=== PATIENT | male | born 1975 | race Caucasian/White ===

== ENCOUNTER 2021-09-03 10:14 | Inpatient (IN) | payer OTHER ==
[2021-09-03] MEDS ORDERED: SODIUM CHLORIDE 0.9% 1,000 ML IV STA (10:34)
[2021-09-03] MEDS ORDERED: SODIUM CHLORIDE 0.9% 500 ML 500 ML IV STA (10:34)
[2021-09-03] MEDS ORDERED: KETOROLAC 15 MG/ML 1 ML VIAL IVP STA (10:36)
--- NOTE | 2021-09-03 10:39 | ED ---
Nausea/Vomiting/Diarrhea HPI - General Chief complaint: Nausea/Vomiting/Diarrhea Stated complaint: Vomiting and Tachycardia Time Seen by Provider: 09/03/21 10:20 Source: patient, EMS, RN notes reviewed Limitations: physical limitation - History of Present Illness Initial comments: Patient is 46-year-old male presenting to the ED for 1-day-old nausea and vomiting. Patient states that last night was starting to feel nauseous and vomiting not being able to keep any fluids down or eat anything. Patient denies any cough congestion or feeling ill prior to yesterday. Patient states he was tested for culture yesterday and result came back negative per [facility]. Patient denies any changes in bowel movements or pain with urination. Patient denies any abdominal discomfort or pressure. Patient states after getting a liter of fluids and Zofran from EMS patient shouldn't feels feeling much better. - Related Data Home Medications Medication Instructions Recorded Confirmed Cyclobenzaprine [Flexeril] 10 mg PO TID@0500,1300,2100 11/22/14 09/03/21 Amitriptyline HCl [Elavil] 10 mg PO HS 09/03/21 09/03/21 Bisacodyl 5 mg PO HS 09/03/21 09/03/21 Mag Hydrox/Al Hydrox/Simeth 15 ml PO Q6H PRN 09/03/21 09/03/21 [Maalox] Metoprolol Tartrate [Lopressor] 25 mg PO BID 09/03/21 09/03/21 Multivitamins, Thera [Multivitamin 1 tab PO HS 09/03/21 09/03/21 (formulary)] Sennosides [Senna] 8.6 mg PO BID 09/03/21 09/03/21 Triamcinolone 0.1% Cream [Kenalog 1 applic TOPICAL Q12H PRN 09/03/21 09/03/21 0.1% Cream] Vitamin D(Unknown Dose) 1 cap PO Q90D 09/03/21 09/03/21 rOPINIRole HCL [Requip] 1 mg PO HS@199909/03/21 09/03/21 traMADol HCL 50 mg PO BID 09/03/21 09/03/21 Allergies Allergy/AdvReac Type Severity Reaction Status Date / Time No Known Allergies Allergy Verified 09/03/21 11:17 Review of Systems ROS Statement: Those systems with pertinent positive or pertinent negative responses have been documented in the HPI. ROS Other: All systems not noted in ROS Statement are negative. Past Medical History Past Medical History: GERD/Reflux Additional Past Medical History / Comment(s): poor hygiene, connective tissue disorder, vitamin D deficiency, acute pancreatitis, cholelithiasis, pancreatitis, Rickets History of Any Multi-Drug Resistant Organisms: None Reported Past Surgical History: No Surgical Hx Reported Past Anesthesia/Blood Transfusion Reactions: No Reported Reaction Past Psychological History: No Psychological Hx Reported Smoking Status: Never smoker Past Alcohol Use History: None Reported Past Drug Use History: None Reported - Past Family History Father Additional Family Medical History / Comment(s): bipolar Mother Family Medical History: COPD, Deep Vein Thrombosis (DVT), Hypertension General Exam Limitations: physical limitation General appearance: alert, in no apparent distress Respiratory exam: Present: normal lung sounds bilaterally. Absent: respiratory distress, wheezes, rales, rhonchi, stridor Cardiovascular Exam: Present: normal rhythm, tachycardia, normal heart sounds. Absent: systolic murmur, diastolic murmur, rubs, gallop, clicks GI/Abdominal exam: Present: soft, normal bowel sounds. Absent: distended, tenderness, guarding, rebound, rigid Neurological exam: Present: alert, oriented X3 Skin exam: Present: warm, dry Course Vital Signs 09/03/21 10:18 Temperature 99 F Pulse Rate 135 H Respiratory 16 Rate Blood Pressure 117/88 O2 Sat by Pulse 96 Oximetry Medical Decision Making - Medical Decision Making 46-year-old male presented from it for Esophageal, and Nausea Vomiting Tachycardia. Patient's Found to Have a Heart Rate in the 130s. This for Station Patient Was Feeling Improved after Zofran and Fluids Given by EMS Additi onal Fluids Were Ordered along with Labs, Urinalysis. Patient Found to Have Urinary Tract Infection. Patient Does Have Significant Leukocytosis, Mild Hypertension. Patient Will Be Admitted for Probable Urosepsis. Blood Cultures, Lactic Acid and Antiemetics Were Ordered. - Lab Data Result diagrams: 09/03/21 10:44 09/03/21 10:44 Lab Results 09/03/21 09/03/21 09/03/21 Range/Units 10:44 10:44 10:44 WBC 20.3 H (3.8-10.6) k/uL RBC 5.59 (4.30-5.90) m/uL Hgb 15.5 (13.0-17.5) gm/dL Hct 46.6 (39.0-53.0) % MCV 83.3 (80.0-100.0) fL MCH 27.7 (25.0-35.0) pg MCHC 33.3 (31.0-37.0) g/dL RDW 14.3 (11.5-15.5) % Plt Count 319 (150-450) k/uL MPV 7.2 Neutrophils % 84 % Lymphocytes % 7 % Monocytes % 6 % Eosinophils % 0 % Basophils % 0 % Neutrophils # 17.1 H (1.3-7.7) k/uL Lymphocytes # 1.5 (1.0-4.8) k/uL Monocytes # 1.2 H (0-1.0) k/uL Eosinophils # 0.1 (0-0.7) k/uL Basophils # 0.0 (0-0.2) k/uL Sodium 140 (137-145) mmol/L Potassium 3.4 L (3.5-5.1) mmol/L Chloride 102 (98-107) mmol/L Carbon Dioxide 23 (22-30) mmol/L Anion Gap 15 mmol/L BUN 23 H (9-20) mg/dL Creatinine 0.64 L (0.66-1.25) mg/dL Est GFR (CKD-EPI)AfAm >90 (>60 ml/min/1.73 sqM) Est GFR (CKD-EPI)NonAf >90 (>60 ml/min/1.73 sqM) Glucose 146 H (74-99) mg/dL Calcium 8.8 (8.4-10.2) mg/dL Magnesium 2.0 (1.6-2.3) mg/dL Total Bilirubin 1.2 (0.2-1.3) mg/dL AST 29 (17-59) U/L ALT 19 (4-49) U/L Alkaline Phosphatase 76 (38-126) U/L Troponin I (0.000-0.034) ng/mL Total Protein 7.0 (6.3-8.2) g/dL Albumin 3.4 L (3.5-5.0) g/dL Lipase 26 (23-300) U/L Urine Color Yellow Urine Appearance Cloudy (Clear) Urine pH 5.5 (5.0-8.0) Ur Specific Beaver 1.029 (1.001-1.035) Urine Protein 2+ H (Negative) Urine Glucose (UA) Negative (Negative) Urine Ketones 4+ H (Negative) Urine Blood Trace H (Negative) Urine Nitrite Negative (Negative) Urine Bilirubin 1+ H (Negative) Urine Urobilinogen 4.0 (<2.0) mg/dL Ur Leukocyte Esterase Large H (Negative) Urine RBC 9 H (0-5) /hpf Urine WBC >182 H (0-5) /hpf Ur Squamous Epith Cells 4 (0-4) /hpf Urine Bacteria Occasional H (None) /hpf Hyaline Casts 20 H (0-2) /lpf Urine Mucus Moderate H (None) /hpf 09/03/21 Range/Units 10:44 WBC (3.8-10.6) k/uL RBC (4.30-5.90) m/uL Hgb (13.0-17.5) gm/dL Hct (39.0-53.0) % MCV (80.0-100.0) fL MCH (25.0-35.0) pg MCHC (31.0-37.0) g/dL RDW (11.5-15.5) % Plt Count (150-450) k/uL MPV Neutrophils % % Lymphocytes % % Monocytes % % Eosinophils % % Basophils % % Neutrophils # (1.3-7.7) k/uL Lymphocytes # (1.0-4.8) k/uL Monocytes # (0-1.0) k/uL Eosinophils # (0-0.7) k/uL Basophils # (0-0.2) k/uL Sodium (137-145) mmol/L Potassium (3.5-5.1) mmol/L Chloride (98-107) mmol/L Carbon Dioxide (22-30) mmol/L Anion Gap mmol/L BUN (9-20) mg/dL Creatinine (0.66-1.25) mg/dL Est GFR (CKD-EPI)AfAm (>60 ml/min/1.73 sqM) Est GFR (CKD-EPI)NonAf (>60 ml/min/1.73 sqM) Glucose (74-99) mg/dL Calcium (8.4-10.2) mg/dL Magnesium (1.6-2.3) mg/dL Total Bilirubin (0.2-1.3) mg/dL AST (17-59) U/L ALT (4-49) U/L Alkaline Phosphatase (38-126) U/L Troponin I 0.024 (0.000-0.034) ng/mL Total Protein (6.3-8.2) g/dL Albumin (3.5-5.0) g/dL Lipase (23-300) U/L Urine Color Urine Appearance (Clear) Urine pH (5.0-8.0) Ur Specific Beaver (1.001-1.035) Urine Protein (Negative) Urine Glucose (UA) (Negative) Urine Ketones (Negative) Urine Blood (Negative) Urine Nitrite (Negative) Urine Bilirubin (Negative) Urine Urobilinogen (<2.0) mg/dL Ur Leukocyte Esterase (Negative) Urine RBC (0-5) /hpf Urine WBC (0-5) /hpf Ur Squamous Epith Cells (0-4) /hpf Urine Bacteria (None) /hpf Hyaline Casts (0-2) /lpf Urine Mucus (None) /hpf Critical Care Time Critical Care Time: Yes Total Critical Care Time: 35 Disposition Clinical Impression: Tachycardia, Sepsis, Urinary tract infection, Dehydration Disposition: ADMITTED IP TO THIS [facility] Condition: Fair Referrals: Radha Peacock MD [Primary Care Provider] - 1-2 days
[2021-09-03 11:10] LABS: Basophils % (A) 0 %; Eosinophils # (A) 0.1 k/uL (0-0.7); Eosinophils % (A) 0 %; HCT 46.6 % (39.0-53.0); HGB 15.5 gm/dL (13.0-17.5); Lymphocytes # (A) 1.5 k/uL (1.0-4.8); Lymphocytes % (A) 7 %; MCH 27.7 pg (25.0-35.0); MCHC 33.3 g/dL (31.0-37.0); MCV 83.3 fL (80.0-100.0); Mean Platelet Volume 7.2; Monocytes # (A) 1.2 k/uL (0-1.0); Monocytes % (A) 6 %; Neutrophils # (A) 17.1 k/uL (1.3-7.7); Neutrophils % (A) 84 %; Platelet Count 319 k/uL (150-450); RBC 5.59 m/uL (4.30-5.90); RDW 14.3 % (11.5-15.5); WBC 20.3 k/uL (3.8-10.6)
[2021-09-03 11:21] LABS: ALT 19 U/L (4-49); AST 29 U/L (17-59); African American GFR (CKD) >90 (>60 ml/min/1.73 sqM); Albumin 3.4 g/dL (3.5-5.0); Alkaline Phosphatase 76 U/L (38-126); Anion Gap 15 mmol/L; Blood Urea Nitrogen 23 mg/dL (9-20); Calcium 8.8 mg/dL (8.4-10.2); Carbon Dioxide 23 mmol/L (22-30); Chloride 102 mmol/L (98-107); Glucose 146 mg/dL (74-99); Lipase 26 U/L (23-300); Non-African American GFR(CKD) >90 (>60 ml/min/1.73 sqM); Potassium 3.4 mmol/L (3.5-5.1); Sodium 140 mmol/L (137-145); Total Bilirubin 1.2 mg/dL (0.2-1.3)
[2021-09-03 12:01] LABS: Appearance,Urine Cloudy (Clear); Bacteria,Urine Occasional /hpf; Bilirubin,Urine 1+ (Negative); Blood,Urine Trace (Negative); Color,Urine Yellow; Glucose,Urine (UA) Negative (Negative); Hyaline Casts,Urine 20 /lpf (0-2); Ketones,Urine 4+ (Negative); Leukocyte Esterase,Urine Large (Negative); Mucus,Urine Moderate /hpf; Nitrite,Urine Negative (Negative); PH, Urine 5.5 (5.0-8.0); Protein,Urine 2+ (Negative); RBC,Urine 9 /hpf (0-5); Specific Gravity,Urine 1.029 (1.001-1.035); Squamous Epithelial Cell,Urine 4 /hpf (0-4); WBC,Urine >182 /hpf (0-5)
[2021-09-03] MEDS ORDERED: ACETAMINOPHEN TAB 500 MG TAB PO STA (12:24)
[2021-09-03] MEDS ORDERED: IBUPROFEN 400 MG TAB PO PRN (12:27)
[2021-09-03] MEDS ORDERED: ACETAMINOPHEN TAB 325 MG TAB PO PRN (12:27)
[2021-09-03] MEDS ORDERED: NALOXONE 0.4 MG/ML 1 ML VIAL IV PRN (12:27)
[2021-09-03] MEDS ORDERED: SODIUM CHLORIDE 0.9% 1,000 ML IV ONE (12:30)
[2021-09-03] MEDS: SODIUM CHLORIDE 0.9% 1,000 ML IV SCH ×2 (13:37→20:43)
--- NOTE | 2021-09-03 14:50 | XR ---
EXAMINATION TYPE: XR chest 1V DATE OF EXAM: 09/03/2021 COMPARISON: Chest x-ray 11/22/2014 HISTORY: Fever TECHNIQUE: Single frontal view of the chest is obtained. FINDINGS: Lung volumes are low and the patient is rotated. Right hemidiaphragm remains elevated. Sub segmental basilar atelectatic changes are suspected. Cardiac mediastinal silhouette likely stable acc ounting for differences in technique. There are overlying leads. No evident pneumothorax or pleural e ffusion. Arthropathy is noted in the shoulders. IMPRESSION: Expiratory rotated exam. Possible basilar atelectasis, correlate to exclude pneumonia. F ollow-up PA and lateral chest x-ray may be of benefit.
[2021-09-03] MEDS ORDERED: MAG HYDROX/AL HYDROX/SIMETH 30 ML CUP PO PRN (16:56)
[2021-09-03] MEDS: MULTIVITAMINS, THERA 1 EACH TAB PO SCH (20:45)
[2021-09-03] MEDS: SENNOSIDES 8.6 MG TAB PO SCH (20:45)
[2021-09-03] MEDS: traMADol 50 MG TAB PO SCH (20:45)
[2021-09-03] MEDS: bisacodyL 5 MG TABLET.DR PO SCH (20:45)
[2021-09-03] MEDS: CYCLOBENZAPRINE 10 MG TAB PO SCH (20:45)
[2021-09-03] MEDS: AMITRIPTYLINE HCL 10 MG TAB PO SCH (20:45)
[2021-09-03] MEDS: METOPROLOL TARTRATE 25 MG TAB PO SCH (20:46)
[2021-09-04 04:25] LABS: Basophils % (A) 0 %; Eosinophils # (A) 0.1 k/uL (0-0.7); Eosinophils % (A) 2 %; HCT 45.3 % (39.0-53.0); HGB 14.3 gm/dL (13.0-17.5); Hypochromasia Slight; Lymphocytes # (A) 1.6 k/uL (1.0-4.8); Lymphocytes % (A) 18 %; MCH 28.1 pg (25.0-35.0); MCHC 31.6 g/dL (31.0-37.0); Monocytes # (A) 0.6 k/uL (0-1.0); Monocytes % (A) 7 %; Neutrophils # (A) 6.4 k/uL (1.3-7.7); Neutrophils % (A) 71 %; Platelet Count 189 k/uL (150-450); RBC 5.08 m/uL (4.30-5.90)
[2021-09-04 04:42] LABS: MCV 89.2 fL (80.0-100.0)
[2021-09-04] MEDS: CYCLOBENZAPRINE 10 MG TAB PO SCH ×3 (05:23→21:51)
[2021-09-04] MEDS: SODIUM CHLORIDE 0.9% 1,000 ML IV SCH ×2 (05:25→12:33)
[2021-09-04 07:22] LABS: ALT 16 U/L (4-49); AST 39 U/L (17-59); African American GFR (CKD) >90 (>60 ml/min/1.73 sqM); Albumin 2.6 g/dL (3.5-5.0); Albumin/Globulin Ratio 0.8; Alkaline Phosphatase 58 U/L (38-126); Anion Gap 5 mmol/L; Blood Urea Nitrogen 17 mg/dL (9-20); Calcium 7.3 mg/dL (8.4-10.2); Carbon Dioxide 22 mmol/L (22-30); Chloride 112 mmol/L (98-107); Globulin 3.4 g/dL; Glucose 84 mg/dL (74-99); Non-African American GFR(CKD) >90 (>60 ml/min/1.73 sqM); Sodium 139 mmol/L (137-145); Total Bilirubin 0.7 mg/dL (0.2-1.3)
[2021-09-04 07:30] LABS: Potassium 4.5 mmol/L (3.5-5.1)
[2021-09-04] MEDS: SENNOSIDES 8.6 MG TAB PO SCH ×2 (12:33→21:51)
[2021-09-04] MEDS: METOPROLOL TARTRATE 25 MG TAB PO SCH ×2 (12:34→21:52)
[2021-09-04] MEDS: traMADol 50 MG TAB PO SCH ×2 (12:34→21:51)
--- NOTE | 2021-09-04 17:26 | P.HPIM ---
History of Present Illness H&P Date: 09/03/21 Yaakov Mora, he is a 46-year-old male resident of a [facility] who presented to [facility] emergency room with a chief complaint of nausea vomiting diarrhea fever and evidence of dehydration and hypotension He was evaluated in the emergency room vital examination on presentation r evealed a temperature of 99 pulse 135 respiration 16 blood pressure 117/88 pulse ox 96% on room air.. of note patient had much lower blood pressure reading at the correction he was given IV fluid in the ambulance on his way to the hospital Laboratory data revealed a white blood count of 20.3 hemoglobin 15.5 platelet count 319 sodium 140 potassium 3.4 chloride 102 CO2 23 BUN 23 creatinine 0.64 ur ine analysis revealed evidence of urinary tract infection Testing in the emergency room revealed chest x-ray revealed possible basilar atelectasis versus pneumonia, EKG revealed sinus tachycardia with short SC with possible inferior infarct age undetermined Patient was admitted to medical floor for further evaluation and treatment Past medical history is significant for history of vitamin D deficiency, 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 On review of systems patient is alert and oriented 3 in no apparent distress he is feeling better at this time no new episodes of nausea or vomiting no chest pain no shortness of breath and no cough Past Medical History Past Medical History: GERD/Reflux Additional Past Medical History / Comment(s): poor hygiene, connective tissue disorder, vitamin D deficiency, acute pancreatitis, cholelithiasis, pancreatitis, Rickets History of Any Multi-Drug Resistant Organisms: None Reported Past Surgical History: No Surgical Hx Reported Past Anesthesia/Blood Transfusion Reactions: No Reported Reaction Past Psychological History: No Psychological Hx Reported Smoking Status: Never smoker Past Alcohol Use History: None Reported Past Drug Use History: None Reported - Past Family History Father Additional Family Medical History / Comment(s): bipolar Mother Family Medical History: COPD, Deep Vein Thrombosis (DVT), Hypertension Medications and Allergies Home Medications Medication Instructions Recorded Confirmed Type Cyclobenzaprine [Flexeril] 10 mg PO TID@0500,1300,2100 11/22/14 09/03/21 History Amitriptyline HCl [Elavil] 10 mg PO HS 09/03/21 09/03/21 History Bisacodyl 5 mg PO HS 09/03/21 09/03/21 History Mag Hydrox/Al Hydrox/Simeth 15 ml PO Q6H PRN 09/03/21 09/03/21 History [Maalox] Metoprolol Tartrate [Lopressor] 25 mg PO BID 09/03/21 09/03/21 History Multivitamins, Thera [Multivitamin 1 tab PO HS 09/03/21 09/03/21 History (formulary)] Sennosides [Senna] 8.6 mg PO BID 09/03/21 09/03/21 History Triamcinolone 0.1% Cream [Kenalog 1 applic TOPICAL Q12H PRN 09/03/21 09/03/21 History 0.1% Cream] Vitamin D(Unknown Dose) 1 cap PO Q90D 09/03/21 09/03/21 History rOPINIRole HCL [Requip] 1 mg PO HS@199909/03/21 09/03/21 History traMADol HCL 50 mg PO BID 09/03/21 09/03/21 History Allergies Allergy/AdvReac Type Severity Reaction Status Date / Time No Known Allergies Allergy Verified 09/03/21 11:17 Physical Exam Vitals: Vital Signs Temp Pulse Resp BP Pulse Ox 09/03/21 15:54 107 H 16 101/67 92 L 09/03/21 14:14 113 H 16 100/67 99 09/03/21 13:33 99.4 F 118 H 16 88/63 96 09/03/21 10:18 99 F 135 H 16 117/88 96 Intake and Output 09/03/21 09/03/21 09/03/21 06:59 14:59 22:59 Other: Weight 86.183 kg In general patient is alert and oriented x 3 in no distress HEENT head normocephalic and atraumatic Neck is supple no JVD no goiter no lymphadenopathy no carotid bruit Chest examination is clear to auscultation no crackles no wheezing Cardiac exam reveals regular heart sounds S1 and S2 no gallops no murmurs Abdomen is soft nontender no organomegaly with normal bowel sounds Extremity exam reveals no edema no cyanosis or clubbing Neurological examination reveals no gross focal deficits Results CBC & Chem 7: 09/04/21 03:22 09/04/21 03:37 Labs: Abnormal Lab Results - Last 24 Hours (Table) 09/03/21 09/03/21 09/03/21 Range/Units 10:44 10:44 10:44 WBC 20.3 H (3.8-10.6) k/uL Neutrophils # 17.1 H (1.3-7.7) k/uL Monocytes # 1.2 H (0-1.0) k/uL Potassium 3.4 L (3.5-5.1) mmol/L BUN 23 H (9-20) mg/dL Creatinine 0.64 L (0.66-1.25) mg/dL Glucose 146 H (74-99) mg/dL Albumin 3.4 L (3.5-5.0) g/dL Urine Protein 2+ H (Negative) Urine Ketones 4+ H (Negative) Urine Blood Trace H (Negative) Urine Bilirubin 1+ H (Negative) Ur Leukocyte Esterase Large H (Negative) Urine RBC 9 H (0-5) /hpf Urine WBC >182 H (0-5) /hpf Urine Bacteria Occasional H (None) /hpf Hyaline Casts 20 H (0-2) /lpf Urine Mucus Moderate H (None) /hpf Assessment and Plan Plan: Urinary tract infection Sepsis as evidenced by high fever and elevated white blood count Dehydration was elevated BUN on presentation Underlying history of cerebral palsy with joints deformity, patient is a [facility] resident Previous history of cholelithiasis and acute pancreatitis Previous history of vitamin D deficiency Medication and labs were reviewed Patient was started on IV Rocephin will continue Blood culture and urine culture were sent awaiting results Infectious disease consultation was requested Continue with current management at this time will follow closely
--- NOTE | 2021-09-04 19:45 | XR ---
EXAMINATION TYPE: XR chest 1V DATE OF EXAM: 09/04/2021 COMPARISON: 09/03/2021 HISTORY: Fever TECHNIQUE: Single view FINDINGS: Heart is normal. There is some atelectasis right lung base and elevation of the right diaph ragm. There are chest leads. Bony thorax is intact. IMPRESSION: Right basilar atelectasis which is increased compared to yesterday. No heart failure..
[2021-09-04] MEDS: bisacodyL 5 MG TABLET.DR PO SCH (21:51)
[2021-09-04] MEDS: MULTIVITAMINS, THERA 1 EACH TAB PO SCH (21:51)
[2021-09-04] MEDS: AMITRIPTYLINE HCL 10 MG TAB PO SCH (22:02)
[2021-09-05] MEDS: SODIUM CHLORIDE 0.9% 1,000 ML IV SCH ×3 (03:13→21:06)
[2021-09-05] MEDS: CYCLOBENZAPRINE 10 MG TAB PO SCH ×3 (06:10→21:03)
[2021-09-05 06:48] LABS: Basophils # (A) 0.1 k/uL (0-0.2); Basophils % (A) 1 %; Eosinophils # (A) 0.2 k/uL (0-0.7); Eosinophils % (A) 3 %; HCT 36.6 % (39.0-53.0); HGB 11.6 gm/dL (13.0-17.5); Hypochromasia Moderate; Lymphocytes # (A) 1.5 k/uL (1.0-4.8); Lymphocytes % (A) 19 %; MCH 28.6 pg (25.0-35.0); MCHC 31.6 g/dL (31.0-37.0); MCV 90.5 fL (80.0-100.0); Mean Platelet Volume 7.5; Monocytes # (A) 0.4 k/uL (0-1.0); Monocytes % (A) 5 %; Neutrophils # (A) 5.3 k/uL (1.3-7.7); Neutrophils % (A) 69 %; Platelet Count 219 k/uL (150-450); RBC 4.05 m/uL (4.30-5.90); RDW 14.3 % (11.5-15.5); WBC 7.7 k/uL (3.8-10.6)
[2021-09-05] MEDS: traMADol 50 MG TAB PO SCH ×2 (08:06→21:04)
[2021-09-05] MEDS: METOPROLOL TARTRATE 25 MG TAB PO SCH ×2 (08:06→21:03)
[2021-09-05] MEDS: SENNOSIDES 8.6 MG TAB PO SCH ×2 (08:06→21:03)
--- NOTE | 2021-09-05 11:16 | P.CONS ---
History of Present Illness - Reason for Consult Consult date: 09/04/21 UTI Requesting physician: Radha Peacock - Chief Complaint vomiting x 1 day - History of Present Illness History of Present Illness : Patient is a 46-year male presenting to the ER yesterday morning for 1 day history of nausea vomiting patient started feeling nauseous the night before and started having vomiting unable to keep anything down patient denies having abdominal pain, patient denies having any chest pain shortness of breath or cough patient was given a liter of fluids and Zofran from EMS and subsequently brought to the hospital on arrival to the ER p atient did have low-grade fever of 99.4 F was slightly tachycardic did have white count of 20,000 with a left shift did have elevated BUN creatinine was normal patient did have positive UA with large leukocyte esterase 112 WBC with moderate bacteria called the patient was negative patient did have a chest x-ray expiratory rotated exam possible atelectasis patient was started on Rocephin admitted to hospital infectious he was consulted for further management concerning for urinary tract infection, patient did not have indwelling Pond catheter no difficulty urination has no suprapubic or flank pain Review of system: CONSTITUTIONAL: Positive for weakness, low-grade fever. EYES: No complaint. ENT: No complaint. RESPIRATORY: No complaint. CARDIOVASCULAR: No complaint. GENITOURINARY: As per history of present illness. GASTROINTESTINAL: As per history of present illness. MUSCULOSKELETAL: No complaint. INTEGUMENTARY : No complaint. PSYCHOLOGIC: No complaint. ENDOCRINE: No complaint. NEUROLOGIC: No complaint. Past medical history : Reviewed, documented below Past surgical history : Reviewed, documented below Social history: Reviewed, documented below Medications: Reviewed, as documented below EXAMINATION: Vital sigans= Reviewed and documented below GENERAL DESCRIPTION: Middle-aged male lying in bed, no distress. No tachypnea or accessory muscle of respiration use. HEENT: Shows Pallor , no scleral icterus. Oral mucous membrane is dry. NECK: Trachea central, no thyromegaly. LUNGS: Unlabored breathing. Clear to auscultation anteriorly. No wheeze or crackle. HEART: S1, S2, regular rate and rhythm. ABDOMEN: Soft, no tenderness , guarding or rigidity EXTREMITIES: No edema feet SKIN: No rash, no masses palpable. NEUROLOGICAL: The patient is awake, alert, oriented x2, mood and affect normal. LABS AND RADIOLOGY: Reviewed results see below Assessment : Patient presented to hospital with intractable nausea and vomiting unable to keep anything down in this patient did have significantly positive UA concerning for a symptomatic urinary tract infection, patient currently on room air and do not have any significant respiratory symptoms or clinical findings to be suspicious for pneumonia Plan: 1-Rocephin 1 g IV daily to continue 2-gentle IV fluid 3-check ultrasound abdomen to rule out obstructive uropathy We will follow on clinical condition and cultures to further adjust medication if needed Thank you for this consultation we will follow the patient along with you Past Medical History Past Medical History: GERD/Reflux, Osteoarthritis (OA), Skin Disorder Additional Past Medical History / Comment(s): poor hygiene, connective tissue disorder-unknown type per patient, vitamin D deficiency/Rickets, acute pancreatitis, cholelithiasis, psoriasis, deformities and contractures from rickets History of Any Multi-Drug Resistant Organisms: None Reported Past Surgical History: No Surgical Hx Reported Past Anesthesia/Blood Transfusion Reactions: No Reported Reaction Past Psychological History: No Psychological Hx Reported Additional Psychological History / Comment(s): Pt is bedbound. He lives at [facility] since 2016. Smoking Status: Never smoker Past Alcohol Use History: None Reported Past Drug Use History: None Reported - Past Family History Father Additional Family Medical History / Comment(s): bipolar Mother Family Medical History: COPD, Deep Vein Thrombosis (DVT), Hypertension Medications and Allergies Home Medications Medication Instructions Recorded Confirmed Type Cyclobenzaprine [Flexeril] 10 mg PO TID@0500,1300,2100 11/22/14 09/03/21 History Amitriptyline HCl [Elavil] 10 mg PO HS 09/03/21 09/03/21 History Bisacodyl 5 mg PO HS 09/03/21 09/03/21 History Mag Hydrox/Al Hydrox/Simeth 15 ml PO Q6H PRN 09/03/21 09/03/21 History [Maalox] Metoprolol Tartrate [Lopressor] 25 mg PO BID 09/03/21 09/03/21 History Multivitamins, Thera [Multivitamin 1 tab PO HS 09/03/21 09/03/21 History (formulary)] Sennosides [Senna] 8.6 mg PO BID 09/03/21 09/03/21 History Triamcinolone 0.1% Cream [Kenalog 1 applic TOPICAL Q12H PRN 09/03/21 09/03/21 History 0.1% Cream] Vitamin D(Unknown Dose) 1 cap PO Q90D 09/03/21 09/03/21 History rOPINIRole HCL [Requip] 1 mg PO HS@2000 09/03/21 09/03/21 History traMADol HCL 50 mg PO BID 09/03/21 09/03/21 History Allergies Allergy/AdvReac Type Severity Reaction Status Date / Time No Known Allergies Allergy Verified 09/03/21 11:17 Physical Exam Vitals: Vital Signs Temp Pulse Pulse Pulse Resp BP BP 09/04/21 19:37 98.4 F 103 H 16 09/04/21 18:08 98.9 F 106 H 18 116/61 09/04/21 17:13 98.9 F 102 H 19 103/68 09/04/21 05:00 101 H 19 104/74 09/04/21 03:00 100 20 94/60 09/04/21 00:34 97.5 F L 95 16 104/62 BP Pulse Ox 09/04/21 19:37 96/68 09/04/21 18:08 91 L 09/04/21 17:13 97 09/04/21 05:00 93 L 09/04/21 03:00 92 L 09/04/21 00:34 91 L Intake and Output 09/04/21 09/04/21 09/04/21 06:59 14:59 22:59 Intake Total 1240 100 Output Total 300 Balance 940 100 Intake: Intake, IV Titration 1000 Amount Sodium Chloride 0.9% 1, 1000 000 ml @ 130 mls/hr IV . Q7H42M [facility] Rx#:[id number] Oral 240 100 Output: Urine 300 Other: # Voids 1 Weight 86.183 kg Results CBC & Chem 7: 09/05/21 Unknown 09/04/21 03:37 Labs: Abnormal Lab Results - Last 24 Hours (Table) 09/04/21 Range/Units 03:37 Chloride 112 H (98-107) mmol/L Creatinine 0.44 L (0.66-1.25) mg/dL Calcium 7.3 L (8.4-10.2) mg/dL Total Protein 6.0 L (6.3-8.2) g/dL Albumin 2.6 L (3.5-5.0) g/dL Microbiology - Last 24 Hours (Table) 09/03/21 10:44 Urine Culture - Preliminary Urine,Clean Catch Gram Neg Bacilli 09/03/21 15:35 Blood Culture - Preliminary Blood No Growth after 24 hours
--- NOTE | 2021-09-05 11:27 | P.PN ---
Subjective Progress Note Date: 09/05/21 Yaakov Mora, he is a 46-year-old male resident of a [facility] who presented to [facility] emergency room with a chief complaint of nausea vomiting diarrhea fever and evidence of dehydration and hypotension He was evaluated in the emergency room vital examination on presentation revealed a temperature of 99 pulse 135 respiration 16 blood pressure 117/88 pulse ox 96% on room air.. of note patient had much lower blood pressure reading at the alf he was given IV fluid in the ambulance on his way to the hospital Laboratory data revealed a white blood count of 20.3 hemoglobin 15.5 platelet count 319 sodium 140 potassium 3.4 chloride 102 CO2 23 BUN 23 creatinine 0.64 urine analysis revealed evidence of urinary tract infection Testing in the emergency room revealed chest x-ray revealed possible basilar atelectasis versus pneumonia, EKG revealed sinus tachycardia with short CT with possible inferior infarct age undetermined Patient was admitted to medical floor for further evaluation and treatment Past medical history is significant for history of vitamin D deficiency, c erebral palsy with upper and lower extremity deformity, history of cholelithiasis and history of pancreatitis. On review of systems patient is alert and oriented 3 in no apparent distress he is feeling better at this time no new episodes of nausea or vomiting no chest pain no shortness of breath and no cough On 09/05/2021 patient's alert and oriented 3. Remains on IV Rocephin area and ultrasound of abdomen has been ordered per infectious disease. Cardiology services also consulted for ongoing tachycardia. Repeat labs and TSH level ordered. 2-D echo ordered. At this time patient denies chest pain or shortness of breath. Patient denies nausea vomiting or diarrhea. Patient denies any urinary burning or frequency Objective - Vital Signs Vital signs: Vital Signs Temp 98.2 F 09/05/21 05:50 Pulse 110 H 09/05/21 05:50 Resp 20 09/05/21 08:00 BP 110/71 09/05/21 05:50 Pulse Ox 91 L 09/05/21 05:50 Intake & Output 09/04/21 09/05/21 09/05/21 18:59 06:59 18:59 Intake Total 100 Output Total 300 850 Balance 100 -300 -850 Weight 86.183 kg Intake: Oral 100 Output: Urine 300 850 Other: Voiding Method Urinal Urinal Diaper Diaper # Voids 1 - Labs CBC & Chem 7: 09/05/21 Unknown 09/04/21 03:37 Labs: Abnormal Lab Results - Last 24 Hours (Table) 09/05/21 Range/Units Unknown RBC 4.05 L (4.30-5.90) m/uL Hgb 11.6 L (13.0-17.5) gm/dL Hct 36.6 L (39.0-53.0) % Microbiology - Last 24 Hours (Table) 09/03/21 10:44 Urine Culture - Preliminary Urine,Clean Catch Gram Neg Bacilli 09/03/21 15:35 Blood Culture - Preliminary Blood No Growth after 24 hours Assessment and Plan Plan: Urinary tract infection Sepsis as evidenced by high fever and elevated white blood count Dehydration was elevated BUN on presentation Underlying history of cerebral palsy with joints deformity, patient is a alf resident Previous history of cholelithiasis and acute pancreatitis Previous history of vitamin D deficiency Tachycardia. 2-D echo, TSH level and cardiology services consulted Medication and labs were reviewed Patient was started on IV Rocephin will continue Blood culture and urine culture were sent awaiting results Infectious disease consultation was requested Ultrasound of abdomen ordered Continue with current management at this time will follow closely
--- NOTE | 2021-09-05 12:59 | US ---
EXAMINATION TYPE: US abdomen complete DATE OF EXAM: 09/05/2021 COMPARISON: CT CLINICAL HISTORY: vomiting , UTI. Vomiting, UTI. EXAM MEASUREMENTS: Liver Length: Limited, measured at 18.8 cm CBD: Obscured. Spleen: Limited, measured at 10.6 cm Right Kidney: 9.1 x 5.0 x 3.7 cm Left Kidney: 11.4 x 5.7 x 6.3 cm Very difficult and limited exam due to patient body habitus. Pancreas: Tail not well seen. Liver: Limited. Images taken in LLD. Increased echogenicity. Measured at 18.8 cm, enlarged, although measurement is limited. Gallbladder: Obscured. Evidence for sonographic Kauffman's sign: No. CBD: Obscured. Spleen: Limited, no abnormalities seen. Right Kidney: Renal pelvis appears dilated, anechoic appearance medially. Hyperechoic focus seen: 0. 9 x 0.8 x 0.4 cm. Left Kidney: No hydronephrosis or masses seen Upper IVC: Obscured. Abd Aorta: Portions seen appear wnl. IMPRESSION: 1. Abdomen ultrasound as visualized appears unremarkable. 2. There are limitations on the examination due to body habitus.
[2021-09-05 17:40] LABS: ALT 10 U/L (10-49); AST 11 U/L (14-35); Albumin 2.4 g/dL (3.8-4.9); Albumin/Globulin Ratio 1.01 (1.60-3.17); Alkaline Phosphatase 52 U/L (41-126); BUN/Creat Ratio 15.09 Ratio (12.00-20.00); Blood Urea Nitrogen 5.3 mg/dL (9.0-27.0); Calcium 7.3 mg/dL (8.7-10.3); Carbon Dioxide 20.9 mmol/L (21.6-31.8); Chloride 110 mmol/L (96-109); Globulin 2.4 g/dL (1.6-3.3); Glucose 96 mg/dL (70-110); Non-African American GFR(CKD) 150.1 (60.0-200.0); Potassium 3.5 mmol/L (3.5-5.5); Sodium 142 mmol/L (135-145); Total Bilirubin <0.20 mg/dL (0.30-1.20); Total Protein 4.8 g/dL (6.2-8.2)
[2021-09-05] MEDS: bisacodyL 5 MG TABLET.DR PO SCH (21:03)
[2021-09-05] MEDS: AMITRIPTYLINE HCL 10 MG TAB PO SCH (21:03)
[2021-09-05] MEDS: MULTIVITAMINS, THERA 1 EACH TAB PO SCH (21:03)
[2021-09-06 04:56] VITALS: RESP 18
[2021-09-06] MEDS: SODIUM CHLORIDE 0.9% 1,000 ML IV SCH ×3 (06:21→17:51)
[2021-09-06] MEDS: CYCLOBENZAPRINE 10 MG TAB PO SCH ×3 (06:21→20:00)
--- NOTE | 2021-09-06 07:07 | PN ---
PROGRESS NOTE DATE OF SERVICE: 09/05/2021 REASON FOR FOLLOWUP: Urinary tract infection. INTERVAL HISTORY: Patient is afebrile. The patient is breathing comfortably. Feeling better. There has been no further vomiting. No chest pain, shortness of breath or cough. PHYSICAL EXAMINATION: Blood pressure 105/68 with a pulse of , temperature 98.5. He is 95% on room air. General description is a middle-aged male lying in bed in no distress. Respiratory system: Unlabored breathing. Clear to auscultation anteriorly. Heart S1, S2. Regular rate and rhythm. Abdomen soft, no tenderness. Extremities: No edema of the feet. LABS: Urine has been finalized with Providencia. Ultrasound was negative for any hydronephrosis. DIAGNOSTIC IMPRESSION AND PLAN: Patient admitted to the hospital with symptomatic urinary tract infection, possible polynephritis. The patient at this time to continue with Rocephin transition to oral antibiotic on discharge. Continue supportive care. MMODL / IJN: [id number] /
[2021-09-06 07:13] LABS: Basophils % (A) 0 %; Eosinophils # (A) 0.2 k/uL (0-0.7); Eosinophils % (A) 4 %; HCT 39.2 % (39.0-53.0); HGB 12.5 gm/dL (13.0-17.5); Lymphocytes # (A) 1.3 k/uL (1.0-4.8); Lymphocytes % (A) 21 %; MCH 27.2 pg (25.0-35.0); MCHC 31.8 g/dL (31.0-37.0); MCV 85.7 fL (80.0-100.0); Mean Platelet Volume 7.3; Monocytes # (A) 0.4 k/uL (0-1.0); Monocytes % (A) 6 %; Neutrophils # (A) 4.3 k/uL (1.3-7.7); Neutrophils % (A) 67 %; Platelet Count 235 k/uL (150-450); RBC 4.58 m/uL (4.30-5.90); RDW 13.7 % (11.5-15.5); WBC 6.4 k/uL (3.8-10.6)
[2021-09-06 08:18] LABS: ALT 13 U/L (4-49); AST 24 U/L (17-59); African American GFR (CKD) >90 (>60 ml/min/1.73 sqM); Albumin 2.5 g/dL (3.5-5.0); Albumin/Globulin Ratio 0.9; Alkaline Phosphatase 57 U/L (38-126); Anion Gap 6 mmol/L; Blood Urea Nitrogen 3 mg/dL (9-20); Calcium 7.9 mg/dL (8.4-10.2); Carbon Dioxide 24 mmol/L (22-30); Chloride 108 mmol/L (98-107); Globulin 2.9 g/dL; Glucose 96 mg/dL (74-99); Non-African American GFR(CKD) >90 (>60 ml/min/1.73 sqM); Potassium 3.4 mmol/L (3.5-5.1); Sodium 138 mmol/L (137-145); Total Bilirubin 0.4 mg/dL (0.2-1.3); Total Protein 5.4 g/dL (6.3-8.2)
--- NOTE | 2021-09-06 08:52 | ECHOF ---
Referral Reason:Tachycardia MEASUREMENTS -------- HEIGHT: 165.1 cm WEIGHT: 86.2 kg BP: 110/71 RVIDd: 3.5 cm (< 3.3) IVSd: 1.2 cm (0.6 - 1.1) LVIDd: 4.2 cm (3.9 - 5.3) LVPWd: 1.2 cm (0.6 - 1.1) IVSs: 1.8 cm LVIDs: 2.7 cm LVPWs: 1.8 cm LAESV Index (A-L): 16.41 ml/m Ao Diam: 3.1 cm (2.0 - 3.7) AV Cusp: 2.0 cm (1.5 - 2.6) LA Diam: 3.5 cm (2.7 - 3.8) MV EXCURSION: 21.622 mm (> 18.000) MV EF SLOPE: 65 mm/s (70 - 150) EPSS: 0.3 cm MV E Luis: 0.94 m/s MV DecT: 164 ms MV A Luis: 0.58 m/s MV E/A Ratio: 1.63 RAP: 5.00 mmHg RVSP: 16.24 mmHg FINDINGS -------- Sinus rhythm. This was a technically adequate study. The left ventricular size is normal. There is mild concentric left ventricular hypertrophy. Overa ll left ventricular systolic function is normal with, an EF between 55 - 60 %. The right ventricle is mildly enlarged. Normal LA size by volume 22+/-6 ml/m2. The right atrial size is normal. Interatrial and interventricular septum intact. The aortic valve is trileaflet and appears structurally normal. There is no evidence of aortic regu rgitation. There is no evidence of aortic stenosis. No mitral regurgitation. Mild tricuspid regurgitation present. There is no evidence of pulmonary hypertension. The right v entricular systolic pressure, as measured by Doppler, is 16.24mmHg. There is no pulmonic regurgitation present. The aortic root size is normal. IVC Not well visulized. Echo free space may represent effusion or a pericardial fat pad. CONCLUSIONS -------- 1. The left ventricular size is normal. 2. There is mild concentric left ventricular hypertrophy. 3. Overall left ventricular systolic function is normal with, an EF between 55 - 60 %. 4. The right ventricle is mildly enlarged. 5. Mild tricuspid regurgitation present. 6. Echo free space may represent effusion or a pericardial fat pad. [employer]IC: Shruthi Darling RDCS
[2021-09-06] MEDS: METOPROLOL TARTRATE 25 MG TAB PO SCH (08:56)
[2021-09-06] MEDS: traMADol 50 MG TAB PO SCH ×2 (08:56→20:01)
[2021-09-06] MEDS: SENNOSIDES 8.6 MG TAB PO SCH ×2 (08:56→20:00)
[2021-09-06] MEDS ORDERED: METOPROLOL TARTRATE 25 MG TAB PO STA (09:31)
--- NOTE | 2021-09-06 10:15 | P.CRDCN ---
History of Present Illness History of present illness: HISTORY OF PRESENTING ILLNESS This is a pleasant 46-year-old male past medical history significant for vitamin D deficiency, underlying cerebral palsy with joint deformity, cholelithiasis, pa ncreatitis. He does not follow with a nursing director. Denies history of CAD, ND, Stroke, heart failure. We have been asked to see in consultation for sinus tachycardia. Patient presents to the emergency department from [facility] on 09/03/21 with dehydration, nausea, vomiting. He states he has not been feeling well for a few days. He endorses nausea and vomiting day prior to admission. He denies chest pain, shortness of breath, palpitations, lightheadedness, dizziness, syncope. He is currently bedbound. Found to have a Leukocytosis, UA concerning for UTI and being treated with Rocephin. EKG on admission revealed sinus tachycardia HR 130s. Patient started on IV fluids, his home dose of metoprolol tartrate 25mg BID. His heart rates have improved he is currently in sinus tachycardia HR 80s- low 100s. DIAGNOSTICS Chest xray right basilar atelectasis and increased compared to yesterday. Laboratory reviewed, WBC 9.2, hemoglobin 14.3, platelets 189, sodium 139, potassium 4.5, BUN 17, serum creatinine 2.4 Echocardiogram revealed- ejection fraction 5560 percent, RV is mildly enlarged, mild tricuspid regurgitation. Current outpatient medications include- metoprolol tartrate 25mg BID, Tramadol BID, Requip, Vitamin D, Senna BID, Maalox PRN, flexeril TID, Elavil nightly REVIEW OF SYSTEMS At the time of my exam: CONSTITUTIONAL: Denies fever or chills. CARDIOVASCULAR: Denies chest pain, shortness of breath, orthopnea, PND or palpitations. RESPIRATORY: Denies cough. GASTROINTESTINAL: +nausea, vomiting, Denies abdominal pain, diarrhea, constipation, MUSCULOSKELETAL: Denies myalgias. NEUROLOGIC: Denies numbness, tingling, headacbe or weakness. ENDOCRINE: Denies fatigue, weight change, polydipsia or polyurina. GENITOURINARY: Denies burning, hematuria or urgency with micturation. HEMATOLOGIC: Denies history of anemia or bleeding. PHYSICAL EXAMINATION Blood pressure 112/79, heart rate 103, afebrile, T-max saturations on room air CONSTITUTIONAL: No apparent distress. HEENT: Head is normocephalic. Pupils are equal, round. Sclerae anicteric. Mucous membranes of the mouth are moist. No JVD. No carotid bruit. CHEST EXAMINATION: Lungs are clear to auscultation. No chest wall tenderness is noted on palpation or with deep breathing. HEART EXAMINATION: Regular rate and rhythm. S1, S2 heard. No murmurs, gallops or rub. ABDOMEN: Soft, nontender. Positive bowel sounds. EXTREMITIES: 2+ peripheral pulses, no lower extremity edema and no calf tenderness. NEUROLOGIC EXAMINATION: Patient is awake, alert and oriented x3. ASSESSMENT Sinus tachycardia, most likely due to infection and dehydration, improvement with IV fluids and IV antibiotics Dehydration Nausea, Vomiting History of Vitamin D deficiency History of underlying cerebral palsy with joint deformity Bedbound Obesity PLAN We will increase patient's beta saman to metoprolol titrate 50 mg twice a day. Echocardiogram reviewed with preserved ejection fraction and no significant wall motion abnormalities. We will follow the patient as needed. Please reach out with further questions or concerns. Nurse Practitioner note has been reviewed, I agree with a documented findings and plan of care. Patient was seen and examined. Past Medical History Past Medical History: GERD/Reflux, Osteoarthritis (OA), Skin Disorder Additional Past Medical History / Comment(s): poor hygiene, connective tissue disorder-unknown type per patient, vitamin D deficiency/Rickets, acute pancreatitis, cholelithiasis, psoriasis, deformities and contractures from ri ckets History of Any Multi-Drug Resistant Organisms: None Reported Past Surgical History: No Surgical Hx Reported Past Anesthesia/Blood Transfusion Reactions: No Reported Reaction Past Psychological History: No Psychological Hx Reported Additional Psychological History / Comment(s): Pt is bedbound. He lives at [facility] since 2017. Smoking Status: Never smoker Past Alcohol Use History: None Reported Past Drug Use History: None Reported - Past Family History Father Additional Family Medical History / Comment(s): bipolar Mother Family Medical History: COPD, Deep Vein Thrombosis (DVT), Hypertension Medications and Allergies Home Medications Medication Instructions Recorded Confirmed Type Cyclobenzaprine [Flexeril] 10 mg PO TID@0500,1300,2100 11/22/14 09/03/21 History Amitriptyline HCl [Elavil] 10 mg PO HS 09/03/21 09/03/21 History Bisacodyl 5 mg PO HS 09/03/21 09/03/21 History Mag Hydrox/Al Hydrox/Simeth 15 ml PO Q6H PRN 09/03/21 09/03/21 History [Maalox] Metoprolol Tartrate [Lopressor] 25 mg PO BID 09/03/21 09/03/21 History Multivitamins, Thera [Multivitamin 1 tab PO HS 09/03/21 09/03/21 History (formulary)] Sennosides [Senna] 8.6 mg PO BID 09/03/21 09/03/21 History Triamcinolone 0.1% Cream [Kenalog 1 applic TOPICAL Q12H PRN 09/03/21 09/03/21 History 0.1% Cream] Vitamin D(Unknown Dose) 1 cap PO Q90D 09/03/21 09/03/21 History rOPINIRole HCL [Requip] 1 mg PO HS@2000 09/03/21 09/03/21 History traMADol HCL 50 mg PO BID 09/03/21 09/03/21 History Allergies Allergy/AdvReac Type Severity Reaction Status Date / Time No Known Allergies Allergy Verified 09/03/21 11:17 Physical Exam Vitals: Vital Signs Temp Pulse Pulse Pulse Resp BP BP 09/05/21 08:00 20 09/05/21 05:50 98.2 F 110 H 20 110/71 09/04/21 19:37 98.4 F 103 H 16 09/04/21 18:08 98.9 F 106 H 18 116/61 09/04/21 17:13 98.9 F 102 H 19 103/68 BP Pulse Ox 09/05/21 08:00 09/05/21 05:50 91 L 09/04/21 19:37 96/68 09/04/21 18:08 91 L 09/04/21 17:13 97 Intake and Output 09/04/21 09/05/21 09/05/21 22:59 06:59 14:59 Intake Total 100 Output Total 300 850 Balance -200 -850 Intake: Oral 100 Output: Urine 300 850 Other: Voiding Method Urinal Urinal Diaper Diaper # Voids 1 Weight 86.183 kg Results 09/06/21 06:36 09/06/21 06:36 CBC 09/05/21 Range/Units Unknown WBC 7.7 (3.8-10.6) k/uL RBC 4.05 L (4.30-5.90) m/uL Hgb 11.6 L (13.0-17.5) gm/dL Hct 36.6 L (39.0-53.0) % Plt Count 219 (150-450) k/uL Current Medications Generic Name Dose Route Start Last Admin Trade Name Freq PRN Reason Stop Dose Admin Acetaminophen 650 mg 09/03/21 12:27 Acetaminophen Tab 325 Mg Tab PO Q6HR PRN Mild Pain or Fever > 100.5 Al Hydroxide/Mg Hydroxide 15 ml 09/03/21 16:56 Mag Hydrox/Al Hydrox/Simeth 30 Ml Cup PO Q6H PRN GI Upset Amitriptyline HCl 10 mg 09/03/21 21:00 09/04/21 22:02 Amitriptyline Hcl 10 Mg Tab PO 10 mg HS ELIA Administration Bisacodyl 5 mg 09/03/21 21:00 09/04/21 21:51 Bisacodyl 5 Mg Tablet.Dr PO 5 mg HS ELIA Administration Cyclobenzaprine HCl 10 mg 09/03/21 21:00 09/05/21 06:10 Cyclobenzaprine 10 Mg Tab PO Not Given TID@0500,1300,2100 ELIA Sodium Chloride 1,000 mls @ 130 mls/hr 09/03/21 12:30 09/05/21 08:04 Saline 0.9% IV 130 mls/hr .Q7H42M ELIA Administration Ceftriaxone Sodium 1 gm/ 50 mls @ 100 mls/hr 09/04/21 11:15 09/05/21 08:04 Sodium Chloride IVPB 100 mls/hr Q24HR ELIA Administration Ibuprofen 400 mg 09/03/21 12:27 Ibuprofen 400 Mg Tab PO Q6HR PRN Mild Pain or Fever > 100.5 Metoprolol Tartrate 25 mg 09/03/21 21:00 09/05/21 08:06 Metoprolol Tartrate 25 Mg Tab PO 25 mg BID ELIA Administration Multivitamins 1 each 09/03/21 21:00 09/04/21 21:51 Multivitamins, Thera 1 Each Tab PO 1 each HS ELIA Administration Naloxone HCl 0.2 mg 09/03/21 12:27 Naloxone 0.4 Mg/Ml 1 Ml Vial IV Q2M PRN Opioid Reversal Ropinirole HCl 1 mg 09/03/21 20:00 09/04/21 22:02 Ropinirole Hcl 1 Mg Tab PO 1 mg HS@2000 ELIA Administration Senna 8.6 mg 09/03/21 21:00 09/05/21 08:06 Sennosides 8.6 Mg Tab PO 8.6 mg BID ELIA Administration Tramadol HCl 50 mg 09/03/21 21:00 09/05/21 08:06 Tramadol 50 Mg Tab PO 50 mg BID ELIA Administration Intake and Output 09/04/21 09/05/21 09/05/21 22:59 06:59 14:59 Intake Total 100 Output Total 300 850 Balance -200 -850 Intake: Oral 100 Output: Urine 300 850 Other: Voiding Method Urinal Urinal Diaper Diaper # Voids 1 Weight 86.183 kg 09/05/21 Unknown 09/04/21 03:37
--- NOTE | 2021-09-06 16:01 | PN ---
PROGRESS NOTE DATE OF SERVICE: 09/06/2021 REASON FOR FOLLOWUP: Urinary tract infection. INTERVAL HISTORY: The patient is afebrile. The patient is currently breathing comfortably. Denies having any chest pain, shortness of breath or cough. No abdominal pain or diarrhea. PHYSICAL EXAMINATION: Blood pressure 130/89 with a pulse of temperature 97.5. He is 96% on room air. General description is a middle-aged male lying in bed in no distress. RESPIRATORY SYSTEM: Unlabored breathing. Clear to auscultation anteriorly. HEART: S1, S2. Regular rate and rhythm. ABDOMEN: Soft. No tenderness. LABS: Hemoglobin is white count creatinine 0.71. DIAGNOSTIC IMPRESSION AND PLAN: oral Ceftin on discharge. Close outpatient followup. MMODL / IJN: [id number] /
[2021-09-06] MEDS: METOPROLOL TARTRATE 50 MG TAB PO SCH (20:00)
[2021-09-06] MEDS: bisacodyL 5 MG TABLET.DR PO SCH (20:00)
[2021-09-06] MEDS: AMITRIPTYLINE HCL 10 MG TAB PO SCH (20:00)
[2021-09-06] MEDS: MULTIVITAMINS, THERA 1 EACH TAB PO SCH (20:01)
[2021-09-07] MEDS: CYCLOBENZAPRINE 10 MG TAB PO SCH (04:17)
[2021-09-07] MEDS: SODIUM CHLORIDE 0.9% 1,000 ML IV SCH ×2 (04:17→09:45)
[2021-09-07 04:34] VITALS: BP 101/74; PULSE 69; TEMP 97.6
[2021-09-07 08:13] LABS: ALT 32 U/L (4-49); African American GFR (CKD) >90 (>60 ml/min/1.73 sqM); Albumin/Globulin Ratio 0.9; Anion Gap 8 mmol/L; Blood Urea Nitrogen 5 mg/dL (9-20); Calcium 8.4 mg/dL (8.4-10.2); Carbon Dioxide 22 mmol/L (22-30); Chloride 107 mmol/L (98-107); Globulin 3.5 g/dL; Glucose 99 mg/dL (74-99); Non-African American GFR(CKD) >90 (>60 ml/min/1.73 sqM); Sodium 137 mmol/L (137-145); Total Bilirubin 0.6 mg/dL (0.2-1.3)
[2021-09-07 08:20] LABS: Potassium 4.6 mmol/L (3.5-5.1); Total Protein 6.5 g/dL (6.3-8.2)
[2021-09-07 08:21] LABS: AST 48 U/L (17-59); Alkaline Phosphatase 58 U/L (38-126)
[2021-09-07 09:21] LABS: Basophils % (A) 0 %; Eosinophils # (A) 0.3 k/uL (0-0.7); Eosinophils % (A) 5 %; HGB 13.8 gm/dL (13.0-17.5); Lymphocytes # (A) 1.1 k/uL (1.0-4.8); Lymphocytes % (A) 15 %; MCH 27.7 pg (25.0-35.0); MCHC 32.8 g/dL (31.0-37.0); MCV 84.6 fL (80.0-100.0); Mean Platelet Volume 7.3; Monocytes # (A) 0.3 k/uL (0-1.0); Monocytes % (A) 4 %; Neutrophils # (A) 5.1 k/uL (1.3-7.7); Neutrophils % (A) 73 %; Platelet Count 241 k/uL (150-450); RBC 4.97 m/uL (4.30-5.90); RDW 13.7 % (11.5-15.5); WBC 6.9 k/uL (3.8-10.6)
[2021-09-07] MEDS: METOPROLOL TARTRATE 50 MG TAB PO SCH (09:43)
[2021-09-07] MEDS: SENNOSIDES 8.6 MG TAB PO SCH (09:43)
[2021-09-07] MEDS: traMADol 50 MG TAB PO SCH (09:43)
--- NOTE | 2021-09-07 10:33 | P.PN ---
Subjective Progress Note Date: 09/06/21 Yaakov Mora, he is a 46-year-old male resident of a longterm who presented to [facility] emergency room with a chief complaint of nausea vomiting diarrhea fever and evidence of dehydration and hypotension He was evaluated in the emergency room vital examination on presentation revealed a temperature of 99 pulse 135 respiration 16 blood pressure 117/88 pulse ox 96% on room air.. of note patient had much lower blood pressure reading at the longterm he was given IV fluid in the ambulance on his way to the hospital Laboratory data revealed a white blood count of 20.3 hemoglobin 15.5 platelet count 319 sodium 140 potassium 3.4 chloride 102 CO2 23 BUN 23 creatinine 0.64 urine analysis revealed evidence of urinary tract infection Testing in the emergency room revealed chest x-ray revealed possible basilar atelectasis versus pneumonia, EKG revealed sinus tachycardia with short TN with possible inferior infarct age undetermined Patient was admitted to medical floor for further evaluation and treatment Past medical history is significant for history of vitamin D deficiency, c erebral palsy with upper and lower extremity deformity, history of cholelithiasis and history of pancreatitis. On review of systems patient is alert and oriented 3 in no apparent distress he is feeling better at this time no new episodes of nausea or vomiting no chest pain no shortness of breath and no cough On 09/05/2021 patient's alert and oriented 3. Remains on IV Rocephin area and ultrasound of abdomen has been ordered per infectious disease. Cardiology services also consulted for ongoing tachycardia. Repeat labs and TSH level ordered. 2-D echo ordered. At this time patient denies chest pain or shortness of breath. Patient denies nausea vomiting or diarrhea. Patient denies any urinary burning or frequency On 09/06/2021 patient's alert and oriented 3. Patient remains on IV Rocephin. Urine culture pending. Patient also evaluate cardiac services Metroprolol increased. Patient denies chest pain or shortness breath. Patient denies nausea vomiting or diarrhea. Patient denies any urinary burning or frequency Objective - Vital Signs Vital signs: Vital Signs Temp 97.8 F 09/06/21 04:55 Pulse 103 H 09/06/21 09:00 Resp 18 09/06/21 04:55 BP 126/79 09/06/21 09:00 Pulse Ox 96 09/06/21 04:55 Intake & Output 09/05/21 09/06/2109/06/21 18:59 06:59 18:59 Intake Total 350 1040 Output Total 851 1700 Balance -501 -660 Intake: Intake, IV Titration 1040 Amount Sodium Chloride 0.9% 1, 1040 000 ml @ 130 mls/hr IV . Q7H42M [facility] Rx#:[id number] Oral 350 Output: Urine 851 1700 Other: Voiding Method Urinal Urinal Diaper Diaper # Voids 3 - Exam Head normocephalic Neck supple Lungs clear to auscultation bilaterally no wheezing or crackles Heart regular rate and rhythm S1-S2, no rub or gallop Abdomen is soft nontender nondistended positive bowel sounds no hepatosple nomegaly Extremities no edema. Chronic contractures to all extremities Neuro alert and orientated to 3 - Labs CBC & Chem 7: 09/07/21 09:02 09/07/21 06:13 Labs: Abnormal Lab Results - Last 24 Hours (Table) 09/05/21 09/06/21 09/06/21 Range/Units Unknown 06:36 06:36 Hgb 12.5 L (13.0-17.5) gm/dL Potassium 3.4 L (3.5-5.1) mmol/L Chloride 110 H 108 H (96-109) mmol/L Carbon Dioxide 20.9 L (21.6-31.8) mmol/L BUN 5.3 L 3 L (9.0-27.0) mg/dL Creatinine 0.4 L 0.41 L (0.6-1.5) mg/dL Calcium 7.3 L 7.9 L (8.7-10.3) mg/dL Total Bilirubin <0.20 L (0.30-1.20) mg/dL AST 11 L (14-35) U/L Total Protein 4.8 L 5.4 L (6.2-8.2) g/dL Albumin 2.4 L 2.5 L (3.8-4.9) g/dL Albumin/Globulin Ratio 1.01 L (1.60-3.17) g/dL Microbiology - Last 24 Hours (Table) 09/03/21 10:44 Urine Culture - Final Urine,Clean Catch Providencia rettgeri 09/03/21 15:35 Blood Culture - Preliminary Blood No Growth after 48 hours Assessment and Plan Plan: Urinary tract infection Sepsis as evidenced by high fever and elevated white blood count Dehydration was elevated BUN on presentation Underlying history of cerebral palsy with joints deformity, patient is a longterm resident Previous history of cholelithiasis and acute pancreatitis Previous history of vitamin D deficiency Tachycardia. 2-D echo, TSH level and cardiology services consulted Medication and labs were reviewed Patient was started on IV Rocephin will continue Blood culture and urine culture were sent awaiting results Infectious disease consultation was requested Ultrasound of abdomen ordered Continue with current management at this time will follow closely
--- NOTE | 2021-09-07 10:35 | P.DS ---
Providers Date of admission: 09/03/21 12:21 Expected date of discharge: 09/07/21 Attending physician: Radha Peacock Consults: 09/04/21 11:02 Consult Physician Routine Consulting Provider: Ki Pollock Consult Reason/Comments: UTI, sepsis Do you want consulting provider notified?: Yes 09/05/21 11:09 Consult Physician Routine Consulting Provider: Zohreh Goldstein Consult Reason/Comments: tachycardia Do you want consulting provider notified?: Yes Primary care physician: Radha Peacock [facility] Course: Discharge diagnosis Urinary tract infection Sepsis as evidenced by high fever and elevated white blood count Dehydration was elevated BUN on presentation Underlying history of cerebral palsy with joints deformity, patient is a detention resident Previous history of cholelithiasis and acute pancreatitis Previous history of vitamin D deficiency Tachycardia. 2-D echo completed reviewed per cardiology. Metroprolol increased. No further workup cardiology Hospital course Yaakov Mora, he is a 46-year-old male resident of a detention who presented to [facility] emergency room with a chief complaint of nausea vomiting diarrhea fever and evidence of dehydration and hypotension He was evaluated in the emergency room vital examination on presentation revealed a temperature of 99 pulse 135 respiration 16 blood pressure 117/88 pulse ox 96% on room air.. of note patient had much lower blood pressure reading at the detention he was given IV fluid in the ambulance on his way to the hospital Laboratory data revealed a white blood count of 20.3 hemoglobin 15.5 platelet count 319 sodium 140 potassium 3.4 chloride 102 CO2 23 BUN 23 creatinine 0.64 urine analysis revealed evidence of urinary tract infection Testing in the emergency room revealed chest x-ray revealed possible basilar atelectasis versus pneumonia, EKG revealed sinus tachycardia with short NE with possible inferior infarct age undetermined Patient was admitted to medical floor for further evaluation and treatment Past medical history is significant for history of vitamin D deficiency, 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 On review of systems patient is alert and oriented 3 in no apparent distress he is feeling better at this time no new episodes of nausea or vomiting no chest pain no shortness of breath and no cough On 09/05/2021 patient's alert and oriented 3. Remains on IV Rocephin area and ultrasound of abdomen has been ordered per infectious disease. Cardiology services also consulted for ongoing tachycardia. Repeat labs and TSH level ordered. 2-D echo ordered. At this time patient denies chest pain or shortness of breath. Patient denies nausea vomiting or diarrhea. Patient denies any urinary burning or frequency On 09/06/2021 patient's alert and oriented 3. Patient remains on IV Rocephin. Urine culture pending. Patient also evaluate cardiac services Metroprolol increased. Patient denies chest pain or shortness breath. Patient denies nausea vomiting or diarrhea. Patient denies any urinary burning or frequency On 09/07/2021 patient's alert and oriented 3. Discussed case with infectious disease services. Patient may be discharged home with Ceftin for one week. Per cardiology no further workup patient's beta saman increased to 50 mg twice a day. Patient denies chest pain or shortness breath. Patient denies nausea vomiting or diarrhea. Patient denies any urinary burning or frequency Patient Condition at Discharge: Stable Plan - Discharge Summary Discharge Rx Participant: No New Discharge Prescriptions: New Cefuroxime Axetil [Ceftin] 500 mg PO BID 7 Days #14 tab Metoprolol Tartrate [Lopressor] 50 mg PO BID tab Continue Cyclobenzaprine [Flexeril] 10 mg PO TID@0500,1300,2100 Mag Hydrox/Al Hydrox/Simeth [Maalox] 15 ml PO Q6H PRN PRN Reason: Gi Upset rOPINIRole HCL [Requip] 1 mg PO HS@2000 Multivitamins, Thera [Multivitamin (formulary)] 1 tab PO HS Bisacodyl 5 mg PO HS Amitriptyline HCl [Elavil] 10 mg PO HS Triamcinolone 0.1% Cream [Kenalog 0.1% Cream] 1 applic TOPICAL Q12H PRN PRN Reason: psoriasis traMADol HCL 50 mg PO BID Sennosides [Senna] 8.6 mg PO BID Vitamin D(Unknown Dose) 1 cap PO Q90D Discontinued Metoprolol Tartrate [Lopressor] 25 mg PO BID Discharge Medication List Cyclobenzaprine [Flexeril] 10 mg PO TID@0500,1300,2100 11/22/14 [History] Amitriptyline HCl [Elavil] 10 mg PO HS 09/03/21 [History] Bisacodyl 5 mg PO HS 09/03/21 [History] Mag Hydrox/Al Hydrox/Simeth [Maalox] 15 ml PO Q6H PRN 09/03/21 [History] Multivitamins, Thera [Multivitamin (formulary)] 1 tab PO HS 09/03/21 [History] Sennosides [Senna] 8.6 mg PO BID 09/03/21 [History] Triamcinolone 0.1% Cream [Kenalog 0.1% Cream] 1 applic TOPICAL Q12H PRN 09/03/21 [History] Vitamin D(Unknown Dose) 1 cap PO Q90D 09/03/21 [History] rOPINIRole HCL [Requip] 1 mg PO HS@2000 09/03/21 [History] traMADol HCL 50 mg PO BID 09/03/21 [History] Cefuroxime Axetil [Ceftin] 500 mg PO BID 7 Days #14 tab 09/07/21 [Rx] Metoprolol Tartrate [Lopressor] 50 mg PO BID tab 09/07/21 [Rx] Follow up Appointment(s)/Referral(s): Radha Peacock MD [Primary Care Provider] - 1-2 days Activity/Diet/Wound Care/Special Instructions: Activity as tolerated Diet heart healthy Discharge Disposition: TRANSFER TO SNF/ECF
== END 2021-09-07 12:30 | DRG 872 ==
LOC: EC 10:14 → 5NMEDONC 12:21
PROVIDERS: ADMIT Internal Medicine; ATTEND Internal Medicine
DX: A41.9 Sepsis, unspecified organism (principal); E55.0 Rickets, active; J98.11 Atelectasis; N12 Tubulo-interstitial nephritis, not specified as acute or chronic; K86.1 Other chronic pancreatitis; Z20.822 Contact with and (suspected) exposure to COVID-19; E86.0 Dehydration; I10 Essential (primary) hypertension; K80.20 Calculus of gallbladder without cholecystitis without obstruction; M21.90 Unspecified acquired deformity of unspecified limb; L40.9 Psoriasis, unspecified; R00.0 Tachycardia, unspecified; R94.4 Abnormal results of kidney function studies; F80.9 Developmental disorder of speech and language, unspecified; E66.9 Obesity, unspecified; K21.9 Gastro-esophageal reflux disease without esophagitis; M19.90 Unspecified osteoarthritis, unspecified site; E55.9 Vitamin D deficiency, unspecified; R11.2 Nausea with vomiting, unspecified; G80.9 Cerebral palsy, unspecified; Z74.01 Bed confinement status; Z79.899 Other long term (current) drug therapy; Z82.49 Family history of ischemic heart disease and other diseases of the circulatory system; Z68.31 Body mass index [BMI] 31.0-31.9, adult; I25.2 Old myocardial infarction
CPT/HCPCS: 36415; 71045; 76700; 80053; 81001; 83605; 83690; 83735; 84443; 84484; 85025; 87040; 87077; 87086; 87186; 87635; 93005; 93306; 96361; 96374; 99291

== ENCOUNTER 2022-03-22 02:52 | Emergency (ER) | payer OTHER ==
[2022-03-22 03:04] VITALS: RESP 18; TEMP 97.8
[2022-03-22] MEDS ORDERED: MORPHINE SULFATE 4 MG/ML SYRINGE IV STA (03:15)
[2022-03-22] MEDS ORDERED: ONDANSETRON 4 MG/2 ML VIAL IVP STA (03:15)
[2022-03-22] MEDS ORDERED: SODIUM CHLORIDE 0.9% 1,000 ML IV STA (03:15)
--- NOTE | 2022-03-22 03:20 | ED ---
Abdominal Pain HPI - General Chief Complaint: Abdominal Pain Stated Complaint: Abd Pain Time Seen by Provider: 03/22/22 02:54 Source: patient, RN notes reviewed, old records reviewed Mode of arrival: ambulatory - History of Present Illness Initial Comments: This is a 46-year-old male to the emergency department for evaluation of abdominal pain. Patient states he has pain especially when he has to pass gas. Patient is passing gas without significant difficulty. Patient has no nausea vomiting no fevers no other significant complaints. Patient concerned over passing gas. MD Complaint: abdominal pain -: hour(s) Location: diffuse Radiation: epigastric, suprapubic Migration to: epigastric, suprapubic Severity: moderate Severity scale (1-10): 5 Quality: fullness, sharp Consistency: intermittent Improves With: nothing Worsens With: nothing Associated Symptoms: nausea Treatments Prior to Arrival: other (none) - Related Data Home Medications Medication Instructions Recorded Confirmed Cyclobenzaprine [Flexeril] 10 mg PO TID@0500,1300,2100 11/22/14 09/03/21 Amitriptyline HCl [Elavil] 10 mg PO HS 09/03/21 09/03/21 Bisacodyl 5 mg PO HS 09/03/21 09/03/21 Mag Hydrox/Al Hydrox/Simeth 15 ml PO Q6H PRN 09/03/21 09/03/21 [Maalox] Multivitamins, Thera [Multivitamin 1 tab PO HS 09/03/21 09/03/21 (formulary)] Sennosides [Senna] 8.6 mg PO BID 09/03/21 09/03/21 Triamcinolone 0.1% Cream [Kenalog 1 applic TOPICAL Q12H PRN 09/03/21 09/03/21 0.1% Cream] Vitamin D(Unknown Dose) 1 cap PO Q90D 09/03/21 09/03/21 rOPINIRole HCL [Requip] 1 mg PO HS@199909/03/21 09/03/21 traMADol HCL 50 mg PO BID 09/03/21 09/03/21 Previous Rx's Medication Instructions Recorded Cefuroxime Axetil [Ceftin] 500 mg PO BID 7 Days #14 tab 09/07/21 Metoprolol Tartrate [Lopressor] 50 mg PO BID tab 10/15/21 Allergies Allergy/AdvReac Type Severity Reaction Status Date / Time No Known Allergies Allergy Verified 03/22/22 03:04 Review of Systems ROS Statement: Those systems with pertinent positive or pertinent negative responses have been documented in the HPI. ROS Other: All systems not noted in ROS Statement are negative. Past Medical History Past Medical History: GERD/Reflux, Osteoarthritis (OA), Skin Disorder Additional Past Medical History / Comment(s): poor hygiene, connective tissue disorder-unknown type per patient, vitamin D deficiency/Rickets, acute pancreatitis, cholelithiasis, psoriasis, deformities and contractures from rickets History of Any Multi-Drug Resistant Organisms: None Reported Past Surgical History: No Surgical Hx Reported Past Anesthesia/Blood Transfusion Reactions: No Reported Reaction Past Psychological History: No Psychological Hx Reported Smoking Status: Never smoker Past Alcohol Use History: None Reported Past Drug Use History: None Reported - Past Family History Father Additional Family Medical History / Comment(s): bipolar Mother Family Medical History: COPD, Deep Vein Thrombosis (DVT), Hypertension General Exam General appearance: alert, in no apparent distress Head exam: Present: atraumatic, normocephalic, normal inspection Eye exam: Present: normal appearance, PERRL, EOMI. Absent: scleral icterus, conjunctival injection, periorbital swelling ENT exam: Present: normal exam, mucous membranes moist Neck exam: Present: normal inspection. Absent: tenderness, meningismus, lymphadenopathy Respiratory exam: Present: normal lung sounds bilaterally. Absent: respiratory distress, wheezes, rales, rhonchi, stridor Cardiovascular Exam: Present: regular rate, normal rhythm, normal heart sounds. Absent: systolic murmur, diastolic murmur, rubs, gallop, clicks GI/Abdominal exam: Present: soft, normal bowel sounds. Absent: distended, tenderness, guarding, rebound, rigid Extremities exam: Present: normal inspection, full ROM, normal capillary refill. Absent: tenderness, pedal edema, joint swelling, calf tenderness Back exam: Present: normal inspection Neurological exam: Present: alert, oriented X3, CN II-XII intact Psychiatric exam: Present: normal affect, normal mood Skin exam: Present: warm, dry, intact, normal color. Absent: rash Course Vital Signs 03/22/22 03/22/22 02:59 05:27 Temperature 97.8 F Pulse Rate 108 H 102 H Respiratory 18 18 Rate Blood Pressure 115/86 122/84 O2 Sat by Pulse 96 96 Oximetry - Reevaluation(s) Reevaluation #1: 03/22/22 Medical record is reviewed Patient symptoms are improving here in the emergency department Patient is informed of results and questions have been answered Medical Decision Making - Medical Decision Making 46 male with nonspecific abdominal pain. Patient's no acute distress without any complaints. Patient can be discharged home - Lab Data Result diagrams: 03/22/22 04:28 03/22/22 04:28 Lab Results 03/22/22 03/22/22 03/22/22 Range/Units 04:28 04:28 04:28 WBC 13.8 H (3.8-10.6) k/uL RBC 5.46 (4.30-5.90) m/uL Hgb 14.3 (13.0-17.5) gm/dL Hct 45.4 (39.0-53.0) % MCV 83.2 (80.0-100.0) fL MCH 26.2 (25.0-35.0) pg MCHC 31.5 (31.0-37.0) g/dL RDW 13.8 (11.5-15.5) % Plt Count 292 (150-450) k/uL MPV 6.7 Neutrophils % 85 % Lymphocytes % 8 % Monocytes % 5 % Eosinophils % 1 % Basophils % 0 % Neutrophils # 11.7 H (1.3-7.7) k/uL Lymphocytes # 1.2 (1.0-4.8) k/uL Monocytes # 0.7 (0-1.0) k/uL Eosinophils # 0.1 (0-0.7) k/uL Basophils # 0.1 (0-0.2) k/uL Sodium 137 (137-145) mmol/L Potassium 3.9 (3.5-5.1) mmol/L Chloride 105 (98-107) mmol/L Carbon Dioxide 27 (22-30) mmol/L Anion Gap 5 mmol/L BUN 13 (9-20) mg/dL Creatinine 0.43 L (0.66-1.25) mg/dL Est GFR (CKD-EPI)AfAm >90 (>60 ml/min/1.73 sqM) Est GFR (CKD-EPI)NonAf >90 (>60 ml/min/1.73 sqM) Glucose 132 H (74-99) mg/dL Calcium 9.1 (8.4-10.2) mg/dL Total Bilirubin 0.5 (0.2-1.3) mg/dL AST 23 (17-59) U/L ALT 13 (4-49) U/L Alkaline Phosphatase 89 (38-126) U/L Total Protein 8.0 (6.3-8.2) g/dL Albumin 3.8 (3.5-5.0) g/dL Amylase 53 (30-110) U/L Lipase 64 (23-300) U/L Urine Color Yellow Urine Appearance Cloudy (Clear) Urine pH 8.5 H (5.0-8.0) Ur Specific [place] 1.024 (1.001-1.035) Urine Protein 1+ H (Negative) Urine Glucose (UA) Negative (Negative) Urine Ketones Negative (Negative) Urine Blood Trace H (Negative) Urine Nitrite Negative (Negative) Urine Bilirubin Negative (Negative) Urine Urobilinogen <2.0 (<2.0) mg/dL Ur Leukocyte Esterase Large H (Negative) Urine RBC 9 H (0-5) /hpf Urine WBC >182 H (0-5) /hpf Urine WBC Clumps Many H (None) /hpf Ur Squamous Epith Cells 2 (0-4) /hpf Amorphous Sediment Rare H (None) /hpf Urine Bacteria Rare H (None) /hpf Urine Mucus Moderate H (None) /hpf - Radiology Data Radiology results: report reviewed (X-ray KUB disease), image reviewed Disposition Clinical Impression: Abdominal pain Disposition: HOME SELF-CARE Condition: Good Instructions (If sedation given, give patient instructions): Abdominal Pain (ED) Is patient prescribed a controlled substance at d/c from ED?: No Referrals: Radha Peacock MD [Primary Care Provider] - 1-2 days
--- NOTE | 2022-03-22 04:12 | XR ---
EXAMINATION TYPE: XR KUB DATE OF EXAM: 03/22/2022 COMPARISON: NONE HISTORY: Abdominal pain TECHNIQUE: 2 views FINDINGS: There is no sign of intestinal obstruction or pneumoperitoneum. There is some mild gas-fill ed distended small bowel loops. No free air. No calcifications seen over the kidneys. There is some m oderate arthritic change in the hip joints and worse on the left side. IMPRESSION: Nonacute abdomen.
[2022-03-22 04:34] LABS: Basophils # (A) 0.1 k/uL (0-0.2); Basophils % (A) 0 %; Eosinophils # (A) 0.1 k/uL (0-0.7); Eosinophils % (A) 1 %; HCT 45.4 % (39.0-53.0); HGB 14.3 gm/dL (13.0-17.5); Lymphocytes # (A) 1.2 k/uL (1.0-4.8); Lymphocytes % (A) 8 %; MCH 26.2 pg (25.0-35.0); MCHC 31.5 g/dL (31.0-37.0); MCV 83.2 fL (80.0-100.0); Mean Platelet Volume 6.7; Monocytes # (A) 0.7 k/uL (0-1.0); Monocytes % (A) 5 %; Neutrophils # (A) 11.7 k/uL (1.3-7.7); Neutrophils % (A) 85 %; Platelet Count 292 k/uL (150-450); RBC 5.46 m/uL (4.30-5.90); RDW 13.8 % (11.5-15.5); WBC 13.8 k/uL (3.8-10.6)
[2022-03-22 04:48] LABS: ALT 13 U/L (4-49); AST 23 U/L (17-59); African American GFR (CKD) >90 (>60 ml/min/1.73 sqM); Albumin 3.8 g/dL (3.5-5.0); Alkaline Phosphatase 89 U/L (38-126); Amylase 53 U/L (30-110); Anion Gap 5 mmol/L; Blood Urea Nitrogen 13 mg/dL (9-20); Calcium 9.1 mg/dL (8.4-10.2); Carbon Dioxide 27 mmol/L (22-30); Chloride 105 mmol/L (98-107); Glucose 132 mg/dL (74-99); Lipase 64 U/L (23-300); Non-African American GFR(CKD) >90 (>60 ml/min/1.73 sqM); Potassium 3.9 mmol/L (3.5-5.1); Sodium 137 mmol/L (137-145); Total Bilirubin 0.5 mg/dL (0.2-1.3)
[2022-03-22 05:25] LABS: Amorphous Sediment,Urine Rare /hpf; Appearance,Urine Cloudy (Clear); Bacteria,Urine Rare /hpf; Bilirubin,Urine Negative (Negative); Blood,Urine Trace (Negative); Color,Urine Yellow; Glucose,Urine (UA) Negative (Negative); Ketones,Urine Negative (Negative); Leukocyte Esterase,Urine Large (Negative); Mucus,Urine Moderate /hpf; Nitrite,Urine Negative (Negative); PH, Urine 8.5 (5.0-8.0); Protein,Urine 1+ (Negative); RBC,Urine 9 /hpf (0-5); Specific Gravity,Urine 1.024 (1.001-1.035); Squamous Epithelial Cell,Urine 2 /hpf (0-4); Urobilinogen,Urine <2.0 mg/dL (<2.0); WBC,Urine >182 /hpf (0-5)
[2022-03-22 05:31] VITALS: BP 122/84; PULSE 102
== END 2022-03-22 07:25 | disposition home or self-care (01) ==
LOC: EC 02:52
DX: R10.13 Epigastric pain (principal); K21.9 Gastro-esophageal reflux disease without esophagitis; M19.90 Unspecified osteoarthritis, unspecified site; Z79.899 Other long term (current) drug therapy
CPT/HCPCS: 36415; 80053; 82150; 83690; 85025; 81001; 87086; 87077; 87186; 74018; 99284; 96374; 96375; 96361; J2270; J2405

== ENCOUNTER 2023-02-24 17:16 | Inpatient (IN) | payer OTHER ==
[2023-02-24] MEDS ORDERED: SODIUM CHLORIDE 0.9% 1,000 ML IV STA ×2 (17:30→19:48)
--- NOTE | 2023-02-24 17:48 | ED ---
Altered Mental Status HPI - General Chief Complaint: Altered Mental Status Stated Complaint: AMS Time Seen by Provider: 02/24/23 17:26 Source: EMS Mode of arrival: EMS - History of Present Illness Initial Comments: Patient is a 47-year-old male who presents to the emergency department for altered mental status. According to EMS patient was sent from [facility] for increased confusion, delusions, and combativeness with staff. Patient has history of rickets he is bedbound. On 12/23/22 patient was admitted to our hospital for UTI with sepsis. He currently has a [place] in. Patient is A&O x 3. He denies fever, chills, chest pain, shortness of breath, abdominal pain, nausea, vomiting, burning with urination, diarrhea. - Related Data Home Medications Medication Instructions Recorded Confirmed bisacodyL [Bisacodyl] 5 mg PO DAILY 09/03/21 02/24/23 rOPINIRole HCL [Requip] 1 mg PO HS 09/03/21 02/24/23 ALPRAZolam [Xanax] 0.25 mg PO TID@0800,1200,1800 12/23/22 02/24/23 polyethylene glycoL 3350 [Miralax] 17 gm PO DAILY@0800 12/23/22 02/24/23 Baclofen 10 mg PO TID@0800,1200,1800 01/14/23 02/24/23 Cholecalciferol [Vitamin D3 (25 25 mcg PO DAILY@0800 01/14/23 02/24/23 Mcg = 1000 Iu)] HYDROcodone/APAP 10-325MG [Mcintyre 1 tab PO Q4H PRN 01/14/23 02/24/23 10-325] Metoprolol Tartrate [Lopressor] 50 mg PO BID@0800,1600 01/14/23 02/24/23 Oxybutynin Xl [Ditropan XL] 5 mg PO DAILY@0800 01/14/23 02/24/23 Acetaminophen [Tylenol Arthritis] 650 mg PO Q6H PRN 02/24/23 02/24/23 Amitriptyline HCl [Elavil] 10 mg PO HS 02/24/23 02/24/23 bisacodyL [Dulcolax] 10 mg RECTAL DAILY PRN 02/24/23 02/24/23 Allergies Allergy/AdvReac Type Severity Reaction Status Date / Time No Known Allergies Allergy Verified 02/24/23 17:56 Review of Systems ROS Statement: Those systems with pertinent positive or pertinent negative responses have been documented in the HPI. ROS Other: All systems not noted in ROS Statement are negative. Past Medical History Past Medical History: GERD/Reflux, Musculoskeletal Disorder, Osteoarthritis (OA), Skin Disorder Additional Past Medical History / Comment(s): poor hygiene, connective tissue disorder-unknown type per patient, vitamin D deficiency/Rickets, acute pancreatitis, cholelithiasis, psoriasis, deformities and contractures from rickets, flexion deformity, osteoarthritis, essential hypertension, major depressive disorder, iron deficiency anemia, non pressure chronic ulcer of skin, chronic idopathic constipation, hydronephrosis with renal and ureeral calculous, uti History of Any Multi-Drug Resistant Organisms: None Reported Date of last positivie culture/infection: 12/27/21 MDRO Source:: Urine Past Surgical History: No Surgical Hx Reported Past Anesthesia/Blood Transfusion Reactions: No Reported Reaction Past Psychological History: Anxiety, Depression Smoking Status: Never smoker Past Alcohol Use History: None Reported Past Drug Use History: None Reported - Past Family History Father Additional Family Medical History / Comment(s): bipolar Mother Family Medical History: COPD, Deep Vein Thrombosis (DVT), Hypertension General Exam Limitations: physical limitation General appearance: alert, in no apparent distress Head exam: Present: atraumatic, normocephalic, normal inspection Eye exam: Present: normal appearance, PERRL, EOMI. Absent: scleral icterus, conjunctival injection, periorbital swelling Cardiovascular Exam: Present: normal rhythm, tachycardia, normal heart sounds. Absent: regular rate, systolic murmur, diastolic murmur, rubs, gallop, clicks GI/Abdominal exam: Present: soft, normal bowel sounds. Absent: distended, tenderness, guarding, rebound, rigid Neurological exam: Present: alert, CN II-XII intact Skin exam: Present: warm, dry, intact, normal color. Absent: rash Course Vital Signs 02/24/23 02/24/23 02/24/23 17:22 18:00 18:30 Temperature 97.2 F L Pulse Rate 117 H Respiratory 18 Rate Blood Pressure 98/83 95/74 102/67 O2 Sat by Pulse 95 Oximetry 02/24/23 02/24/23 02/24/23 19:09 19:52 20:20 Temperature Pulse Rate 99 100 Respiratory 98 H 18 Rate Blood Pressure 88/64 89/65 111/96 O2 Sat by Pulse 96 Oximetry Medical Decision Making - Medical Decision Making EKG taken at 18:18, temperature 90 Sinus rhythm with occasional ectopic premature complexes, no new ST segment or T-wave abnormality Ventricular rate 98, NE interval 158, QRS 76, QTC 378 Was pt. sent in by a medical professional or institution ([facility], [facility], urgent care, hospital, or alf...) When possible be specific @ -No Did you speak to anyone other than the patient for history (EMS, parent, family, police, friend...)? What history was obtained from this source @ -No Did you review nursing and triage notes (agree or disagree)? Why? @ -I reviewed and agree with nursing and triage notes Were old charts reviewed (outside hosp., previous admission, EMS record, old EKG, old radiological studies, urgent care reports/EKG's, alf records)? Report findings @ -No old charts were reviewed Differential Diagnosis (chest pain, altered mental status, abdominal pain women, abdominal pain men, vaginal bleeding, weakness, fever, dyspnea, syncope, headache, dizziness, GI bleed, back pain, seizure, CVA, palpatations, mental health)? @ -not applicable EKG interpreted by me (3pts min.). @ -As above X-rays interpreted by me (1pt min.). @ -None done CT interpreted by me (1pt min.). @ -None done U/S interpreted by me (1pt. min.). @ -None done What testing was considered but not performed or refused? (CT, X-rays, U/S, labs)? Why? @ -None What meds were considered but not given or refused? Why? @ -None Did you discuss the management of the patient with other professionals (professionals i.e. [facility], [facility], lab, RT, psych nurse, social media strategist, [employer], teacher, welfare officer, shelter case manager)? Give summary @ -No Was smoking cessation discussed for >3mins.? @ -No Was critical care preformed (if so, how long)? @ -No Were there social determinants of health that impacted care today? How? (Homelessness, low income, unemployed, alcoholism, drug addiction, tra nsportation, low edu. Level, literacy, decrease access to med. care, alf, rehab)? @ -[No] Was there de-escalation of care discussed even if they declined (Discuss DNR or withdrawal of care, Hospice)? DNR status @ -[No] What co-morbidities impacted this encounter? (DM, HTN, Smoking, COPD, CAD, Cancer, CVA, ARF, Chemo, Hep., AIDS, mental health diagnosis, sleep apnea, morbid obesity)? @ -[None] Was patient admitted / discharged? Hospital course, mention meds given and route, prescriptions, significant lab abnormalities, going to OR and other pertinent info. @ -Patient presenting for evaluation of confusion. Patient is alert and oriented 3. He is able to answer questions appropriately. He is tachycardic at 117 with low blood pressure at 98/83. Afebrile. No vomiting. Urine looks grossly infected. Blood cultures obtained. IV fluids started. Laboratory studies obtained. Urinalysis is reflective of infection. There is no leukocytosis. Reviewed last urine culture. Patient has history of VRE. Gentamycin initiated. Based on culture there is no susceptibility for any oral antibiotics patient will be admitted for IV antibiotics. Patient remained hypotensive he mean fluids were ordered. Case discussed with Liset Bland from [facility] she accepts Undiagnosed new problem with uncertain prognosis? @ -[No] Drug Therapy requiring intensive monitoring for toxicity (Heparin, Nitro, Insulin, Cardizem)? @ -[No] Were any procedures done? @ -[No] Diagnosis/symptom? @ -UTI Acute, or Chronic, or Acute on Chronic? @ -acute Uncomplicated (without systemic symptoms) or Complicated (systemic symptoms)? @ -uncomplicated Side effects of treatment? @ -[No] Exacerbation, Progression, or Severe Exacerbation? @ -[No] Poses a threat to life or bodily function? How? (Chest pain, USA, PA, pneumonia, PE, COPD, DKA, ARF, appy, cholecystitis, CVA, Diverticulitis, Homicidal, Suicidal, threat to staff... and all critical care pts) @ -[No] Dr. lane is my attending - Lab Data Result diagrams: 02/24/23 18:20 02/24/23 18:20 Lab Results 02/24/23 02/24/23 02/24/23 Range/Units 17:51 18:09 18:20 WBC 8.1 (3.8-10.6) k/uL RBC 4.45 (4.30-5.90) m/uL Hgb 12.9 L (13.0-17.5) gm/dL Hct 39.1 (39.0-53.0) % MCV 87.8 (80.0-100.0) fL MCH 29.0 (25.0-35.0) pg MCHC 33.1 (31.0-37.0) g/dL RDW 17.8 H (11.5-15.5) % Plt Count 170 (150-450) k/uL MPV 8.8 Neutrophils % 58 % Lymphocytes % 30 % Monocytes % 5 % Eosinophils % 5 % Basophils % 0 % Neutrophils # 4.7 (1.3-7.7) k/uL Lymphocytes # 2.4 (1.0-4.8) k/uL Monocytes # 0.4 (0-1.0) k/uL Eosinophils # 0.4 (0-0.7) k/uL Basophils # 0.0 (0-0.2) k/uL Anisocytosis Slight PT (9.0-12.0) sec INR (<1.2) APTT (22.0-30.0) sec Sodium (137-145) mmol/L Potassium (3.5-5.1) mmol/L Chloride (98-107) mmol/L Carbon Dioxide (22-30) mmol/L Anion Gap mmol/L BUN (9-20) mg/dL Creatinine (0.66-1.25) mg/dL Est GFR (CKD-EPI)AfAm (>60 ml/min/1.73 sqM) Est GFR (CKD-EPI)NonAf (>60 ml/min/1.73 sqM) Glucose (74-99) mg/dL POC Glucose (mg/dL) 110 (70-110) mg/dL POC Glu Roofing Superintendent ID Lore Lennon Plasma Lactic Acid Rene (0.7-2.0) mmol/L Calcium (8.4-10.2) mg/dL Total Bilirubin (0.2-1.3) mg/dL AST (17-59) U/L ALT (4-49) U/L Alkaline Phosphatase (38-126) U/L Troponin I (0.000-0.034) ng/mL Total Protein (6.3-8.2) g/dL Albumin (3.5-5.0) g/dL Urine Color Light Brown Urine Appearance Turbid (Clear) Urine pH 8.0 (5.0-8.0) Ur Specific [place] 1.015 (1.001-1.035) Urine Protein 2+ H (Negative) Urine Glucose (UA) Negative (Negative) Urine Ketones Negative (Negative) Urine Blood Large H (Negative) Urine Nitrite Negative (Negative) Urine Bilirubin Negative (Negative) Urine Urobilinogen <2.0 (<2.0) mg/dL Ur Leukocyte Esterase Large H (Negative) Urine RBC >182 H (0-5) /hpf Urine WBC >182 H (0-5) /hpf Ur Squamous Epith Cells 1 (0-4) /hpf 02/24/23 02/24/23 02/24/23 Range/Units 18:20 18:20 18:20 WBC (3.8-10.6) k/uL RBC (4.30-5.90) m/uL Hgb (13.0-17.5) gm/dL Hct (39.0-53.0) % MCV (80.0-100.0) fL MCH (25.0-35.0) pg MCHC (31.0-37.0) g/dL RDW (11.5-15.5) % Plt Count (150-450) k/uL MPV Neutrophils % % Lymphocytes % % Monocytes % % Eosinophils % % Basophils % % Neutrophils # (1.3-7.7) k/uL Lymphocytes # (1.0-4.8) k/uL Monocytes # (0-1.0) k/uL Eosinophils # (0-0.7) k/uL Basophils # (0-0.2) k/uL Anisocytosis PT 10.3 (9.0-12.0) sec INR 1.0 (<1.2) APTT 19.3 L (22.0-30.0) sec Sodium 138 (137-145) mmol/L Potassium 4.2 (3.5-5.1) mmol/L Chloride 105 (98-107) mmol/L Carbon Dioxide 25 (22-30) mmol/L Anion Gap 8 mmol/L BUN 12 (9-20) mg/dL Creatinine 0.62 L (0.66-1.25) mg/dL Est GFR (CKD-EPI)AfAm >90 (>60 ml/min/1.73 sqM) Est GFR (CKD-EPI)NonAf >90 (>60 ml/min/1.73 sqM) Glucose 119 H (74-99) mg/dL POC Glucose (mg/dL) (70-110) mg/dL POC Glu Roofing Superintendent ID Plasma Lactic Acid Rene (0.7-2.0) mmol/L Calcium 9.3 (8.4-10.2) mg/dL Total Bilirubin 0.5 (0.2-1.3) mg/dL AST 26 (17-59) U/L ALT 15 (4-49) U/L Alkaline Phosphatase 86 (38-126) U/L Troponin I <0.012 (0.000-0.034) ng/mL Total Protein 6.8 (6.3-8.2) g/dL Albumin 3.3 L (3.5-5.0) g/dL Urine Color Urine Appearance (Clear) Urine pH (5.0-8.0) Ur Specific [place] (1.001-1.035) Urine Protein (Negative) Urine Glucose (UA) (Negative) Urine Ketones (Negative) Urine Blood (Negative) Urine Nitrite (Negative) Urine Bilirubin (Negative) Urine Urobilinogen (<2.0) mg/dL Ur Leukocyte Esterase (Negative) Urine RBC (0-5) /hpf Urine WBC (0-5) /hpf Ur Squamous Epith Cells (0-4) /hpf 02/24/23 Range/Units 18:20 WBC (3.8-10.6) k/uL RBC (4.30-5.90) m/uL Hgb (13.0-17.5) gm/dL Hct (39.0-53.0) % MCV (80.0-100.0) fL MCH (25.0-35.0) pg MCHC (31.0-37.0) g/dL RDW (11.5-15.5) % Plt Count (150-450) k/uL MPV Neutrophils % % Lymphocytes % % Monocytes % % Eosinophils % % Basophils % % Neutrophils # (1.3-7.7) k/uL Lymphocytes # (1.0-4.8) k/uL Monocytes # (0-1.0) k/uL Eosinophils # (0-0.7) k/uL Basophils # (0-0.2) k/uL Anisocytosis PT (9.0-12.0) sec INR (<1.2) APTT (22.0-30.0) sec Sodium (137-145) mmol/L Potassium (3.5-5.1) mmol/L Chloride (98-107) mmol/L Carbon Dioxide (22-30) mmol/L Anion Gap mmol/L BUN (9-20) mg/dL Creatinine (0.66-1.25) mg/dL Est GFR (CKD-EPI)AfAm (>60 ml/min/1.73 sqM) Est GFR (CKD-EPI)NonAf (>60 ml/min/1.73 sqM) Glucose (74-99) mg/dL POC Glucose (mg/dL) (70-110) mg/dL POC Glu Roofing Superintendent ID Plasma Lactic Acid Rene 1.2 (0.7-2.0) mmol/L Calcium (8.4-10.2) mg/dL Total Bilirubin (0.2-1.3) mg/dL AST (17-59) U/L ALT (4-49) U/L Alkaline Phosphatase (38-126) U/L Troponin I (0.000-0.034) ng/mL Total Protein (6.3-8.2) g/dL Albumin (3.5-5.0) g/dL Urine Color Urine Appearance (Clear) Urine pH (5.0-8.0) Ur Specific [place] (1.001-1.035) Urine Protein (Negative) Urine Glucose (UA) (Negative) Urine Ketones (Negative) Urine Blood (Negative) Urine Nitrite (Negative) Urine Bilirubin (Negative) Urine Urobilinogen (<2.0) mg/dL Ur Leukocyte Esterase (Negative) Urine RBC (0-5) /hpf Urine WBC (0-5) /hpf Ur Squamous Epith Cells (0-4) /hpf Disposition Clinical Impression: Urinary tract infection Disposition: ADMITTED IP TO THIS HOSP Condition: Good Referrals: Radha Peacock MD [Primary Care Provider] - 1-2 days
[2023-02-24 18:12] LABS: Glucose,Whole Blood 110 mg/dL (70-110)
[2023-02-24] MEDS ORDERED: GENTAMICIN 320 MG in SODIUM CHLORIDE 0.9% 100 ML IVPB ONE (18:15)
[2023-02-24 18:20] LABS: Appearance,Urine Turbid (Clear); Bilirubin,Urine Negative (Negative); Blood,Urine Large (Negative); Color,Urine Light Brown; Glucose,Urine (UA) Negative (Negative); Ketones,Urine Negative (Negative); Leukocyte Esterase,Urine Large (Negative); Nitrite,Urine Negative (Negative); Protein,Urine 2+ (Negative); RBC,Urine >182 /hpf (0-5); Specific Gravity,Urine 1.015 (1.001-1.035); Squamous Epithelial Cell,Urine 1 /hpf (0-4); Urobilinogen,Urine <2.0 mg/dL (<2.0); WBC,Urine >182 /hpf (0-5)
[2023-02-24 18:38] LABS: Anisocytosis Slight; Basophils % (A) 0 %; Eosinophils # (A) 0.4 k/uL (0-0.7); Eosinophils % (A) 5 %; HCT 39.1 % (39.0-53.0); HGB 12.9 gm/dL (13.0-17.5); Lymphocytes # (A) 2.4 k/uL (1.0-4.8); Lymphocytes % (A) 30 %; MCHC 33.1 g/dL (31.0-37.0); MCV 87.8 fL (80.0-100.0); Mean Platelet Volume 8.8; Monocytes # (A) 0.4 k/uL (0-1.0); Monocytes % (A) 5 %; Neutrophils # (A) 4.7 k/uL (1.3-7.7); Neutrophils % (A) 58 %; Platelet Count 170 k/uL (150-450); RBC 4.45 m/uL (4.30-5.90); RDW 17.8 % (11.5-15.5); WBC 8.1 k/uL (3.8-10.6)
[2023-02-24 18:49] LABS: ALT 15 U/L (4-49); AST 26 U/L (17-59); African American GFR (CKD) >90 (>60 ml/min/1.73 sqM); Albumin 3.3 g/dL (3.5-5.0); Alkaline Phosphatase 86 U/L (38-126); Anion Gap 8 mmol/L; Blood Urea Nitrogen 12 mg/dL (9-20); Calcium 9.3 mg/dL (8.4-10.2); Carbon Dioxide 25 mmol/L (22-30); Chloride 105 mmol/L (98-107); Glucose 119 mg/dL (74-99); Non-African American GFR(CKD) >90 (>60 ml/min/1.73 sqM); Potassium 4.2 mmol/L (3.5-5.1); Sodium 138 mmol/L (137-145); Total Bilirubin 0.5 mg/dL (0.2-1.3); Total Protein 6.8 g/dL (6.3-8.2)
[2023-02-24 19:09] LABS: Prothrombin Time 10.3 sec (9.0-12.0)
[2023-02-24 19:14] LABS: Partial Thromboplastin Time 19.3 sec (22.0-30.0)
--- NOTE | 2023-02-24 19:23 | XR ---
EXAMINATION TYPE: XR chest 1V DATE OF EXAM: 02/24/2023 COMPARISON: 01/14/2023 HISTORY: Chest pain TECHNIQUE: Single frontal view of the chest is obtained. FINDINGS: There is no focal air space opacity, pleural effusion, or pneumothorax seen. The cardiac silhouette size is within normal limits. The osseous structures are intact. IMPRESSION: 1. No acute process.
[2023-02-24] MEDS ORDERED: NALOXONE 0.4 MG/ML 1 ML VIAL IV PRN (19:55)
[2023-02-24] MEDS ORDERED: ACETAMINOPHEN TAB 325 MG TAB PO PRN (19:55)
[2023-02-24] MEDS ORDERED: ACETAMINOPHEN TAB 500 MG TAB PO STA (19:57)
[2023-02-24] MEDS ORDERED: GENTAMICIN PER PHARMACY MISCELLANE PRN (20:28)
[2023-02-25] MEDS ORDERED: ACETAMINOPHEN TAB 325 MG TAB PO PRN (08:49)
[2023-02-25] MEDS ORDERED: bisacodyL 10 MG SUPP RECTAL PRN (08:49)
[2023-02-25] MEDS: CHOLECALCIFEROL 25 MCG (1000 IU) TABLET PO SCH ×2 (10:15→10:16)
[2023-02-25] MEDS: bisacodyL 5 MG TABLET.DR PO SCH ×2 (10:15→10:17)
[2023-02-25] MEDS: METOPROLOL TARTRATE 50 MG TAB PO SCH ×3 (10:15→17:03)
[2023-02-25] MEDS: HYDROcodone/APAP 10-325MG 1 EACH TAB PO PRN (10:16)
[2023-02-25] MEDS ORDERED: ALPRAZolam 0.25 MG TAB PO PRN (11:55)
[2023-02-25] MEDS ORDERED: ALPRAZolam 0.25 MG TAB PO SCH (12:00)
[2023-02-25] MEDS ORDERED: BACLOFEN 10 MG TAB PO PRN (12:00)
[2023-02-25] MEDS ORDERED: BACLOFEN 10 MG TAB PO SCH (12:00)
--- NOTE | 2023-02-25 12:59 | P.HPIM ---
History of Present Illness 47-year-old male was sent in from [facility] because of altered mental status and confusion and patient is admitted for UTI patient does have significantly abnormal urine with elevated white count and the RBC in the urine although sam ent does have Pond catheter patient had history of VRE in the past because of which patient was started on the daptomycin in ER. Patient is on multiple other medications which can cause of obtain confusion including the scheduled doses of Xanax, Requip, baclofen, Ditropan, Elavil. Patient doesn't have any evidence of sepsis including normal white count, no fever. Patient is alert oriented 7 e valuated the patient. Patient does have some multiple chronic deformities secondary to vitamin D deficiency and rickets REVIEW OF SYSTEMS: CONSTITUTIONAL: No fever, no malaise, no fatigue. HEENT: No recent visual problems or hearing problems. Denied any sore throat. CARDIOVASCULAR: No chest pain, orthopnea, PND, no palpitations, no syncope. PULMONARY: No shortness of breath, no cough, no hemoptysis. GASTROINTESTINAL: No diarrhea, no nausea, no vomiting, no abdominal pain. NEUROLOGICAL: No headaches, no weakness, no numbness. HEMATOLOGICAL: Denies any bleeding or petechiae. GENITOURINARY: Denies any burning micturition, frequency, or urgency. MUSCULOSKELETAL/RHEUMATOLOGICAL: Denies any joint pain, swelling, or any muscle pain. ENDOCRINE: Denies any polyuria or polydipsia. The rest of the 14-point review of systems is negative. PHYSICAL EXAMINATION: GENERAL: The patient is alert and oriented x3, not in any acute distress. Well developed, well nourished. HEENT: Pupils are round and equally reacting to light. EOMI. No scleral icterus. No conjunctival pallor. Normocephalic, atraumatic. No pharyngeal erythema. No thyromegaly. CARDIOVASCULAR: S1 and S2 present. No murmurs, rubs, or gallops. PULMONARY: Chest is clear to auscultation, no wheezing or crackles. ABDOMEN: Soft, nontender, nondistended, normoactive bowel sounds. No palpable organomegaly. MUSCULOSKELETAL: No joint swelling or deformity. EXTREMITIES: No cyanosis, clubbing, or pedal edema. NEUROLOGICAL: Gross neurological examination did not reveal any focal deficits. SKIN: No rashes. Assessment and plan -Altered mental status secondary to polypharmacy and above-mentioned medications, will decrease the doses of Xanax, baclofen and make them as needed rather than scheduled. Patient doesn't have any evidence of sepsis at this time patient the altered mental status is probably not secondary to urinary tract infection -Abnormal urine secondary to Pond catheter rather than UTI, fully Will be changed will also get infectious disease opinion, antiemetics probably can be discontinued and patient can be discharged back after overnight monitoring tonight back to halfway with the above-mentioned changes in his medications -Multiple skeletal deformities secondary to Rickets. -Depression -Peripheral neuropathy DVT prophylaxis: Lovenox Past Medical History Past Medical History: GERD/Reflux, Musculoskeletal Disorder, Osteoarthritis (OA), Skin Disorder Additional Past Medical History / Comment(s): poor hygiene, connective tissue disorder-unknown type per patient, vitamin D deficiency/Rickets, acute pancreatitis, cholelithiasis, psoriasis, deformities and contractures from rickets, flexion deformity, osteoarthritis, essential hypertension, major depressive disorder, iron deficiency anemia, non pressure chronic ulcer of skin, chronic idopathic constipation, hydronephrosis with renal and ureeral calculous, uti History of Any Multi-Drug Resistant Organisms: None Reported Date of last positivie culture/infection: 12/27/21 MDRO Source:: Urine Past Surgical History: No Surgical Hx Reported Past Anesthesia/Blood Transfusion Reactions: No Reported Reaction Past Psychological History: Anxiety, Depression Smoking Status: Never smoker Past Alcohol Use History: None Reported Past Drug Use History: None Reported - Past Family History Father Additional Family Medical History / Comment(s): bipolar Mother Family Medical History: COPD, Deep Vein Thrombosis (DVT), Hypertension Medications and Allergies Home Medications Medication Instructions Recorded Confirmed Type bisacodyL [Bisacodyl] 5 mg PO DAILY 09/03/21 02/24/23 History rOPINIRole HCL [Requip] 1 mg PO HS 09/03/21 02/24/23 History ALPRAZolam [Xanax] 0.25 mg PO TID@0800,1200,1800 12/23/22 02/24/23 History polyethylene glycoL 3350 [Miralax] 17 gm PO DAILY@0800 12/23/22 02/24/23 History Baclofen 10 mg PO TID@0800,1200,1800 01/14/23 02/24/23 History Cholecalciferol [Vitamin D3 (25 25 mcg PO DAILY@0800 01/14/23 02/24/23 History Mcg = 1000 Iu)] HYDROcodone/APAP 10-325MG [[place] 1 tab PO Q4H PRN 01/14/23 02/24/23 History 10-325] Metoprolol Tartrate [Lopressor] 50 mg PO BID@0800,1600 01/14/23 02/24/23 History Oxybutynin Xl [Ditropan XL] 5 mg PO DAILY@0800 01/14/23 02/24/23 History Acetaminophen [Tylenol Arthritis] 650 mg PO Q6H PRN 02/24/23 02/24/23 History Amitriptyline HCl [Elavil] 10 mg PO HS 02/24/23 02/24/23 History bisacodyL [Dulcolax] 10 mg RECTAL DAILY PRN 02/24/23 02/24/23 History Allergies Allergy/AdvReac Type Severity Reaction Status Date / Time No Known Allergies Allergy Verified 02/24/23 17:56 Physical Exam Vitals: Vital Signs Temp Pulse Resp BP Pulse Ox 02/25/23 10:18 99 18 118/96 97 02/25/23 07:00 104 H 112/77 02/25/23 06:30 99 02/25/23 06:00 118 H 98/66 02/25/23 05:30 71 96/78 02/25/23 05:00 88 111/85 02/25/23 04:30 93 109/78 02/25/23 04:00 98 108/86 02/25/23 03:46 103 H 108/86 02/25/23 00:33 108/91 02/24/23 23:33 82 18 100/70 02/24/23 22:16 74 18 83/51 92 L 02/24/23 21:00 107/75 02/24/23 20:30 86/70 02/24/23 20:20 100 18 111/96 96 02/24/23 19:52 89/65 02/24/23 19:09 99 98 H 88/64 02/24/23 18:30 102/67 02/24/23 18:00 95/74 02/24/23 17:22 97.2 F L 117 H 18 98/83 95 Intake and Output 02/24/23 02/25/23 02/25/23 22:59 06:59 14:59 Other: Weight 72.575 kg Results CBC & Chem 7: 02/24/23 18:20 02/24/23 18:20 Labs: Abnormal Lab Results - Last 24 Hours (Table) 02/24/23 02/24/23 02/24/23 Range/Units 17:51 18:20 18:20 Hgb 12.9 L (13.0-17.5) gm/dL RDW 17.8 H (11.5-15.5) % APTT 19.3 L (22.0-30.0) sec Creatinine (0.66-1.25) mg/dL Glucose (74-99) mg/dL Albumin (3.5-5.0) g/dL Urine Protein 2+ H (Negative) Urine Blood Large H (Negative) Ur Leukocyte Esterase Large H (Negative) Urine RBC >182 H (0-5) /hpf Urine WBC >182 H (0-5) /hpf 02/24/23 Range/Units 18:20 Hgb (13.0-17.5) gm/dL RDW (11.5-15.5) % APTT (22.0-30.0) sec Creatinine 0.62 L (0.66-1.25) mg/dL Glucose 119 H (74-99) mg/dL Albumin 3.3 L (3.5-5.0) g/dL Urine Protein (Negative) Urine Blood (Negative) Ur Leukocyte Esterase (Negative) Urine RBC (0-5) /hpf Urine WBC (0-5) /hpf Microbiology - Last 24 Hours (Table) 02/24/23 17:51 Urine Culture - Preliminary Urine,Voided
[2023-02-25] MEDS ORDERED: GENTAMICIN 320 MG in SODIUM CHLORIDE 0.9% 100 ML IVPB SCH (19:00)
[2023-02-25] MEDS: AMITRIPTYLINE HCL 10 MG TAB PO SCH (21:04)
--- NOTE | 2023-02-25 23:04 | P.CONS ---
History of Present Illness - Reason for Consult Consult date: 02/25/23 AMS Requesting physician: Sheryl Cote - Chief Complaint Mental status changes x one day - History of Present Illness Patient is a 47-year-old male with a past medical history significant for recurrent disease reflux patient did have a history of hydronephrosis with renal and ureteral calculi and a history of recurrent UTI patient is a [facility] resident and has been brought to the hospital for evaluation of mental status changes patient apparently was noticed to be confused delusional and combative with the staff patient on presentation to the hospital was afebrile and no fever has been recorded subsequently patient did have a normal white count kidney function was normal liver enzymes are normal patient did have a positive UA blood culture has been obtained with concern for UTI previous culture positive for VRE patient was started on daptomycin after received a dose of clindamycin infectious disease was consulted for further management of antibiotic therapy patient seem to be more awake and alert at the time of evaluation and specifically denies any active symptoms at this point no vomiting or diarrhea has been reported Review of Systems Positive point has been mentioned in the HPI rest of the systems are negative Past Medical History Past Medical History: GERD/Reflux, Musculoskeletal Disorder, Osteoarthritis (OA), Skin Disorder Additional Past Medical History / Comment(s): poor hygiene, connective tissue disorder-unknown type per patient, vitamin D deficiency/Rickets, acute pancreatitis, cholelithiasis, psoriasis, deformities and contractures from rickets, flexion deformity, osteoarthritis, essential hypertension, major depressive disorder, iron deficiency anemia, non pressure chronic ulcer of skin, chronic idopathic constipation, hydronephrosis with renal and ureeral calculous, uti History of Any Multi-Drug Resistant Organisms: None Reported Year Discovered:: 12/27/21 MDRO Source:: Urine Past Surgical History: No Surgical Hx Reported Past Anesthesia/Blood Transfusion Reactions: No Reported Reaction Past Psychological History: Anxiety, Depression Smoking Status: Never smoker Past Alcohol Use History: None Reported Past Drug Use History: None Reported - Past Family History Father Additional Family Medical History / Comment(s): bipolar Mother Family Medical History: COPD, Deep Vein Thrombosis (DVT), Hypertension Medications and Allergies Home Medications Medication Instructions Recorded Confirmed Type bisacodyL [Bisacodyl] 5 mg PO DAILY 09/03/21 02/24/23 History rOPINIRole HCL [Requip] 1 mg PO HS 09/03/21 02/24/23 History ALPRAZolam [Xanax] 0.25 mg PO TID@0800,1200,1800 12/23/22 02/24/23 History polyethylene glycoL 3350 [Miralax] 17 gm PO DAILY@0800 12/23/22 02/24/23 History Baclofen 10 mg PO TID@0800,1200,1800 01/14/23 02/24/23 History Cholecalciferol [Vitamin D3 (25 25 mcg PO DAILY@0800 01/14/23 02/24/23 History Mcg = 1000 Iu)] HYDROcodone/APAP 10-325MG [[place] 1 tab PO Q4H PRN 01/14/23 02/24/23 History 10-325] Metoprolol Tartrate [Lopressor] 50 mg PO BID@0800,1600 01/14/23 02/24/23 History Oxybutynin Xl [Ditropan XL] 5 mg PO DAILY@0800 01/14/23 02/24/23 History Acetaminophen [Tylenol Arthritis] 650 mg PO Q6H PRN 02/24/23 02/24/23 History Amitriptyline HCl [Elavil] 10 mg PO HS 02/24/23 02/24/23 History bisacodyL [Dulcolax] 10 mg RECTAL DAILY PRN 02/24/23 02/24/23 History Allergies Allergy/AdvReac Type Severity Reaction Status Date / Time No Known Allergies Allergy Verified 02/24/23 17:56 Physical Exam Vitals: Vital Signs Temp Pulse Pulse Resp BP BP Pulse Ox 02/25/23 22:12 97.8 F 93 18 107/74 97 02/25/23 20:09 102 H 18 96/72 96 02/25/23 17:04 72 95/73 02/25/23 14:00 97.7 F 62 16 101/77 02/25/23 10:18 99 18 118/96 97 02/25/23 07:00 104 H 112/77 02/25/23 06:30 99 02/25/23 06:00 118 H 98/66 02/25/23 05:30 71 96/78 02/25/23 05:00 88 111/85 02/25/23 04:30 93 109/78 02/25/23 04:00 98 108/86 02/25/23 03:46 103 H 108/86 02/25/23 00:33 108/91 02/24/23 23:33 82 18 100/70 Intake and Output 02/25/23 02/25/23 02/26/23 14:59 22:59 06:59 Other: Voiding Method Indwelling Catheter GENERAL DESCRIPTION: Middle-aged male lying in bed, no distress. No tachypnea or accessory muscle of respiration use. HEENT: Shows Pallor , no scleral icterus. Oral mucous membrane is dry. NECK: Trachea central, no thyromegaly. LUNGS: Unlabored breathing. Clear to auscultation anteriorly. No wheeze or crackle. HEART: S1, S2, regular rate and rhythm. No loud murmur ABDOMEN: Soft, no tenderness , guarding or rigidity, no organomegaly EXTREMITIES: No edema of feet. SKIN: No rash, no masses palpable. NEUROLOGICAL: The patient is awake, alert, oriented x2, mood and affect normal. Results CBC & Chem 7: 02/24/23 18:20 02/24/23 18:20 Labs: Abnormal Lab Results - Last 24 Hours (Table) 02/25/23 Range/Units 12:58 C-Reactive Protein 3.7 H (<1.0) mg/dL Microbiology - Last 24 Hours (Table) 02/24/23 18:20 Blood Culture - Preliminary Blood No Growth after 24 hours 02/24/23 18:20 Blood Culture - Preliminary Blood No Growth after 24 hours 02/24/23 17:51 Urine Culture - Preliminary Urine,Voided Assessment and Plan (1) Urinary tract infection Current Visit: Yes Status: Acute Code(s): N39.0 - URINARY TRACT INFECTION, SITE NOT SPECIFIED SNOMED Code(s): 36005391 Plan: 1patient was in the hospital with mental status changes in this patient who do have a chronic indwelling Pond catheter also with a history of renal stone and a history of recurrent UTI did have a positive UA however patient is not running any fever White count has been normal with a question of possible Pond colonization versus UTI less likely but not entirely excluded 2-change Pond catheter and obtain urine culture from new Pond 3-check a CRP 4-May continue Dapto while waiting for repeat UA to be finalized We will follow on clinical condition and cultures to further adjust medication if needed Thank you for this consultation we will follow the patient along with you Time with Patient: Greater than 30
[2023-02-26 01:10] LABS: Appearance,Urine Turbid (Clear); Bacteria,Urine Occasional /hpf; Bilirubin,Urine Negative (Negative); Blood,Urine Large (Negative); Color,Urine Red; Glucose,Urine (UA) Negative (Negative); Ketones,Urine Negative (Negative); Leukocyte Esterase,Urine Large (Negative); Mucus,Urine Many /hpf; Nitrite,Urine Negative (Negative); Protein,Urine 2+ (Negative); RBC,Urine >182 /hpf (0-5); Specific Gravity,Urine 1.018 (1.001-1.035); Urobilinogen,Urine <2.0 mg/dL (<2.0); WBC,Urine >182 /hpf (0-5)
[2023-02-26] MEDS: METOPROLOL TARTRATE 50 MG TAB PO SCH ×3 (08:23→15:52)
[2023-02-26] MEDS: bisacodyL 5 MG TABLET.DR PO SCH (11:40)
[2023-02-26] MEDS: CHOLECALCIFEROL 25 MCG (1000 IU) TABLET PO SCH (11:40)
[2023-02-26] MEDS: polyethylene glycoL 3350 17 GM POWD.PACK PO SCH (11:40)
[2023-02-26] MEDS: OXYBUTYNIN XL 5 MG TAB.ER.24 PO SCH (11:40)
[2023-02-26] MEDS ORDERED: METOPROLOL TARTRATE 25 MG TAB PO STA (12:04)
--- NOTE | 2023-02-26 14:21 | CDI ---
Documentation Clarification Form Date: 02/26/2023 1:51:51 PM From: Farrah Pappas RN, CCDS Admit Date: 02/24/2023 7:56:00 PM Patient Name: Yaakov Mora Visit Number: [id number] Discharge Date: ATTENTION: The Clinical Documentation Specialists (CDI) and [facility] Coding Staff appreciate your assistance in clarifying documentation. Please respond to the clarification below the line at the bottom and electronically sign. The CDI & [facility] Coding staff will review the response and follow-up if needed. Please note: Queries are made part of the Legal Health Record. If you have any questions, please contact the author of this message via ITS. Dr. Sheryl Cote A coccyx pressure ulcer is documented in the nursing wound care assessment stage II. Additional clarification regarding the stage of the pressure ulcer is requested. History/Risk Factors: Chronic Pond catheter, OA, pancreatitis Hypertension, Anemia Rickets Chronic skin ulcer, Vit D deficiency Clinical Indicators: 47-year-old male present with past medical history of skin disorder, chronic ulcer of skin, musculoskeletal disorder with history of rickets and is bedbound. Location: Coccyx stage II, lateral right great toe unstageable Wound description: Coccyx dry and intact Wound description right great toe No drainage Treatment: Turn Q2 hour, 2 person assist. Foam with Border dressing change per protocol Please clarify the stage of pressure ulcer coccyx, Right great toe if known: [ x ] Stage 2 Pressure Ulcer, Coccyx, and Right great toe unstageable pressure ulcer, Present on admission [ ] Other condition, please specify [ ] Unable to determine Clinical Definitions: Stage 1 Pressure Ulcer: intact skin, non-blanching redness of local area Stage 2 Pressure Ulcer: Partial thickness, loss of dermis, pink wound bed Stage 3 Pressure Ulcer: Full thickness tissue loss Stage 4 Pressure Ulcer: Full thickness tissue loss with exposed bone, tendon, or muscle. Unstageable pressure ulcer: Full thickness tissue loss in which the base of the ulcer is covered by slough (yellow, perez, mckeon, green or brown) and/or eschar (perez, brown or black) in the wound bed. (Template Last Revised: January 2021) MTDD
[2023-02-26 14:33] VITALS: BMI 27.4
--- NOTE | 2023-02-26 14:41 | P.PN ---
Subjective Progress Note Date: 02/26/23 Principal diagnosis: Catheter associated UTI Patient is a 47-year-old male with a past medical history significant for recurrent disease reflux patient did have a history of hydronephrosis with renal and ureteral calculi and a history of recurrent UTI patient is a [facility] resident and has been brought to the hospital for evaluation of mental status changes, did have a positive with concern for possible catheter associated UTI patient Pond catheter was changed and the patient UA was still positive and did have mildly elevated CRP. On today's evaluation that is 02/26/2023, the patient remains to be afebrile the patient is breathing comfortably on room air patient denies having any chest pain shortness of breath or cough no abdominal pain and no diarrhea has been reported Objective - Vital Signs Vital signs: Vital Signs Temp 98.5 F 02/26/23 08:22 Pulse 103 H 02/26/23 12:12 Resp 16 02/26/23 08:22 BP 104/78 02/26/23 12:12 Pulse Ox 98 02/26/23 08:22 FiO2 Intake & Output 02/25/23 02/26/23 02/26/23 18:59 06:59 18:59 Output Total 500 Balance -500 Output: Urine 500 Other: Voiding Method Indwelling Catheter Indwelling Catheter - Exam GENERAL DESCRIPTION: Middle-aged male lying in bed in no distress RESPIRATORY SYSTEM: Unlabored breathing , decreased breath sounds at bases HEART: S1 S2 regular rate and rhythm , ABDOMEN: Soft , no tenderness EXTREMITIES: No edema feet - Labs CBC & Chem 7: 02/24/23 18:20 02/24/23 18:20 Labs: Abnormal Lab Results - Last 24 Hours (Table) 02/25/23 02/26/23 Range/Units 12:58 00:40 C-Reactive Protein 3.7 H (<1.0) mg/dL Urine Protein 2+ H (Negative) Urine Blood Large H (Negative) Ur Leukocyte Esterase Large H (Negative) Urine RBC >182 H (0-5) /hpf Urine WBC >182 H (0-5) /hpf Urine WBC Clumps Few H (None) /hpf Urine Bacteria Occasional H (None) /hpf Urine Mucus Many H (None) /hpf Microbiology - Last 24 Hours (Table) 02/26/23 00:40 Urine Culture - Preliminary Urine,Voided 04/03/23 17:51 Urine Culture - Final Urine,Voided 02/24/23 18:20 Blood Culture - Preliminary Blood No Growth after 24 hours 02/24/23 18:20 Blood Culture - Preliminary Blood No Growth after 24 hours Assessment and Plan (1) Urinary tract infection Current Visit: Yes Status: Acute Code(s): N39.0 - URINARY TRACT INFECTION, SITE NOT SPECIFIED SNOMED Code(s): 10886200 Plan: 1patient was in the hospital with mental status changes in this patient who do have a chronic indwelling Pond catheter also with a history of renal stone and a history of recurrent UTI did have a positive UA however patient is not running any fever White count has been normal with a question of possible Pond colonization versus UTI less likely but not entirely excluded 2The patient Pond catheter has been changed and repeat UA still positive and mildly elevated CRP 3patient seemed to have shown improvement clinically as well as mentation is concerned, a short 3 day course of antibiotic should be more than enough for possible cystitis, discussed with the admitting team Time with Patient: Less than 30
--- NOTE | 2023-02-26 16:08 | P.PN ---
Subjective Progress Note Date: 02/26/23 47-year-old male was sent in from [facility] because of altered mental status and confusion and patient is admitted for UTI patient does have significantly abnormal urine with elevated white count and the RBC in the urine although patient does have Pond catheter patient had history of VRE in the past because of which patient was started on the daptomycin in ER. Patient is on multiple other medications which can cause of obtain confusion including the scheduled doses of Xanax, Requip, baclofen, Ditropan, Elavil. Patient doesn't have any evidence of sepsis including normal white count, no fever. Patient is alert oriented 7 evaluated the patient. Patient does have some multiple chronic deformities secondary to vitamin D deficiency and rickets 02/26/2023 Patient is seen and evaluated in follow-up currently being followed with infectious disease maintained on IV daptomycin while awaiting for repeat urine cultures. Initial culture showing no growth although patient does have chronic indwelling Pond catheter with significant history of VRE urine. Indwelling Pond catheter was removed and repeat urinalysis with culture was sent on this new specimen. Patient currently receiving IV daptomycin and will continue for 2 more doses with possible return to ECF in the next 24-48 hours. Patient continue with local wound care as well. Patient is currently afebrile with no reports of chest pain or shortness of breath. Review of systems: Constitutional: No reports of fatigue, fever, or chills Cardiovascular: No reports of chest pain or palpitations Respiratory: No reports of shortness of breath or cough GI: No reports of nausea, vomiting, or diarrhea : No reports of dysuria or retention Neurovascular: No reports of weakness or numbness All medications have been reviewed Active Medications Acetaminophen (Acetaminophen Tab 325 Mg Tab) 650 mg PO Q6HR PRN PRN Reason: Mild Pain or Fever > 100.5 Hydrocodone Bitart/Acetaminophen (Hydrocodone/Apap 10-325mg 1 Each Tab) 1 each PO Q4H PRN PRN Reason: Pain Last Admin: 02/25/23 10:16 Dose: 1 each Alprazolam (Alprazolam 0.25 Mg Tab) 0.25 mg PO DAILY PRN PRN Reason: Anxiety Amitriptyline HCl (Amitriptyline Hcl 10 Mg Tab) 10 mg PO HS ELIA Last Admin: 02/25/23 21:04 Dose: 10 mg Baclofen (Baclofen 10 Mg Tab) 5 mg PO TID@0800,1200,1800 PRN PRN Reason: Muscle Spasm Bisacodyl (Bisacodyl 5 Mg Tablet.Dr) 5 mg PO DAILY [facility] Last Admin: 02/26/23 11:40 Dose: 5 mg Bisacodyl (Bisacodyl 10 Mg Supp) 10 mg RECTAL DAILY PRN PRN Reason: Constipation Cholecalciferol (Cholecalciferol 25 Mcg (1000 Iu) Tablet) 25 mcg PO DAILY@0800 [facility] Last Admin: 02/26/23 11:40 Dose: 25 mcg Daptomycin 450 mg/ Sodium (Chloride) 50 mls @ 100 mls/hr IVPB [facility] Last Admin: 02/25/23 21:03 Dose: 100 mls/hr Metoprolol Tartrate (Metoprolol Tartrate 50 Mg Tab) 50 mg PO BID@0800,1600 [facility] Last Admin: 02/26/23 08:23 Dose: Not Given Naloxone HCl (Naloxone 0.4 Mg/Ml 1 Ml Vial) 0.2 mg IV Q2M PRN PRN Reason: Opioid Reversal Oxybutynin Chloride (Oxybutynin Xl 5 Mg Tab.Er.24) 5 mg PO DAILY@0800 [facility] Last Admin: 02/26/23 11:40 Dose: 5 mg Polyethylene Glycol (Polyethylene Glycol 3350 17 Gm Powd.Pack) 17 gm PO DAILY@0800 [facility] Last Admin: 02/26/23 11:40 Dose: 17 gm Ropinirole HCl (Ropinirole Hcl 1 Mg Tab) 1 mg PO [facility] Last Admin: 02/25/23 21:04 Dose: 1 mg PHYSICAL EXAMINATION: GENERAL: The patient is alert and oriented x3, not in any acute distress. Well developed, well nourished. HEENT: Pupils are round and equally reacting to light. EOMI. No scleral icterus. No conjunctival pallor. Normocephalic, atraumatic. No pharyngeal erythema. No thyromegaly. CARDIOVASCULAR: S1 and S2 present. No murmurs, rubs, or gallops. PULMONARY: Chest is clear to auscultation, no wheezing or crackles. ABDOMEN: Soft, nontender, nondistended, normoactive bowel sounds. No palpable organomegaly. MUSCULOSKELETAL: No joint swelling or deformity. EXTREMITIES: No cyanosis, clubbing, or pedal edema. NEUROLOGICAL: Gross neurological examination did not reveal any focal deficits. SKIN: No rashes. Assessment: -Altered mental status secondary to polypharmacy and above-mentioned medications, will continue with medications as needed as opposed to scheduled -Abnormal urine secondary to Pond catheter rather than UTI, Pond replaced -Multiple skeletal deformities secondary to Rickets. -Depression -Peripheral neuropathy -Stage II pressure ulcer to the coccyx, present on admission -unstageable right great toe pressure ulcer, present on admission -DVT prophylaxis: Lovenox Plan: Recommend continue with IV antibiotics with infectious disease following closely. Awaiting repeat urine cultures an indwelling Pond catheter has removed place. Patient will continue on IV daptomycin to receive 2 more doses with possible discharge to ECF in the next 24-48 hours Mentation improved and will continue holding current medications and have them as needed as opposed to being scheduled Social work following and working on return to ECF once cultures are finalized and antibiotic recommendations. Will follow-up with repeat labs and continue to monitor closely. The impression and plan of care has been dictated by Lorri Chappell, Nurse Practitioner as directed. Dr. Kera MD I have performed a history and examination and MDM of this patient, discussed the same with the dictator, and agree with the dictator's assessment and plan as written ,documented as a scribe. Based on total visit time, I have performed more than 50% of the visit. Objective - Vital Signs Vital signs: Vital Signs Temp 98.5 F 02/26/23 08:22 Pulse 101 H 02/26/23 08:22 Resp 16 02/26/23 08:22 BP 89/68 02/26/23 08:22 Pulse Ox 98 02/26/23 08:22 FiO2 Intake & Output 02/25/23 02/26/23 02/26/23 18:59 06:59 18:59 Output Total 500 Balance -500 Output: Urine 500 Other: Voiding Method Indwelling Catheter Indwelling Catheter - Labs CBC & Chem 7: 02/24/23 18:20 02/24/23 18:20 Labs: Abnormal Lab Results - Last 24 Hours (Table) 02/25/23 02/26/23 Range/Units 12:58 00:40 C-Reactive Protein 3.7 H (<1.0) mg/dL Urine Protein 2+ H (Negative) Urine Blood Large H (Negative) Ur Leukocyte Esterase Large H (Negative) Urine RBC >182 H (0-5) /hpf Urine WBC >182 H (0-5) /hpf Urine WBC Clumps Few H (None) /hpf Urine Bacteria Occasional H (None) /hpf Urine Mucus Many H (None) /hpf Microbiology - Last 24 Hours (Table) 02/24/23 17:51 Urine Culture - Final Urine,Voided 02/24/23 18:20 Blood Culture - Preliminary Blood No Growth after 24 hours 02/24/23 18:20 Blood Culture - Preliminary Blood No Growth after 24 hours
[2023-02-26] MEDS: AMITRIPTYLINE HCL 10 MG TAB PO SCH (22:09)
[2023-02-27] MEDS: HYDROcodone/APAP 10-325MG 1 EACH TAB PO PRN (02:52)
[2023-02-27] MEDS: METOPROLOL TARTRATE 50 MG TAB PO SCH ×3 (07:35→17:23)
[2023-02-27 07:38] VITALS: RESP 18
[2023-02-27] MEDS: bisacodyL 5 MG TABLET.DR PO SCH (08:28)
[2023-02-27] MEDS: polyethylene glycoL 3350 17 GM POWD.PACK PO SCH (08:28)
[2023-02-27] MEDS: CHOLECALCIFEROL 25 MCG (1000 IU) TABLET PO SCH (08:28)
[2023-02-27] MEDS: OXYBUTYNIN XL 5 MG TAB.ER.24 PO SCH (08:28)
[2023-02-27 12:43] VITALS: BP 104/71; PULSE 116; TEMP 98.9
--- NOTE | 2023-02-27 14:29 | P.DS ---
Providers Date of admission: 02/24/23 19:56 Expected date of discharge: 02/27/23 Attending physician: Francisco Argueta Consults: 02/25/23 11:53 Consult Physician Routine Consulting Provider: Ki Pollock Consult Reason/Comments: AMS Do you want consulting provider notified?: Yes Primary care physician: Radha Peacock [facility] Course: Final diagnosis -Altered mental status secondary to polypharmacy -Abnormal urine secondary to Pond catheter rather than UTI, Pond replaced -Multiple skeletal deformities secondary to Rickets. -Depression -Peripheral neuropathy -Stage II pressure ulcer to the coccyx, present on admission -unstageable right great toe pressure ulcer, present on admission -DVT prophylaxis: Lovenox Discharge disposition Patient is being discharged in a stable condition with guarded prognosis to [facility]. Patient will follow-up with Dr. Peacock in the outpatient setting upon discharge. Total time taken is greater than 35 minutes. Hospital course This is a 47-year-old male who was recently admitted with urinary tract infection with chronic indwelling Pond catheter. Patient has had frequent UTIs with resistance and was followed by infectious disease. Patient has received IV daptomycin and Pond catheter was changed. Would strongly encourage patient's anxiety medications along with pain medications being transitioned as needed as patient did come and slightly altered. Patient did have some episodes of increased agitation and had been pulling at the catheter causing some hematuria and nursing staff irrigated and flushed the Pond and is draining and would recommend frequent monitoring of the Pond catheter and irrigation as needed. Patient remains afebrile and hemoglobin is stable and would recommend follow-up with primary care provider on discharge. Currently no reports of chest pain, shortness of breath, or palpitations. Patient is afebrile. No reports of nausea or vomiting and patient is tolerating diet. Patient will be going to [facility] today. Guarded prognosis. Physical exam: Gen: This is a 47-year-old male who is awake, alert and oriented 2, thin built, elderly appearing HEENT: Head is atraumatic, normocephalic. Pupils equal, round. Sclerae is anicteric. NECK: Supple. No JVD. No lymphadenopathy. No thyromegaly. LUNGS: Clear to auscultation. No wheezes or rhonchi. No intercostal retractions. HEART: Regular rate and rhythm. No murmur. ABDOMEN: Soft. Bowel sounds are present. No masses. No tenderness. EXTREMITIES: No pedal edema. No calf tenderness. NEUROLOGICAL: Patient is awake, alert and oriented x2. Diffusely weak Please refer to medication reconciliation sheet for a list of medications. The impression and plan of care has been dictated by Lorri Chappell, Nurse Practitioner as directed. Dr. Kera MD I have performed a history and examination and MDM of this patient, discussed the same with the dictator, and agree with the dictator's assessment and plan as written ,documented as a scribe. Based on total visit time, I have performed more than 50% of the visit. Patient Condition at Discharge: Good Plan - Discharge Summary Discharge Rx Participant: No New Discharge Prescriptions: New ALPRAZolam [Xanax] 0.25 mg PO DAILY PRN #3 tab PRN Reason: Anxiety Continue rOPINIRole HCL [Requip] 1 mg PO HS bisacodyL [Bisacodyl] 5 mg PO DAILY Metoprolol Tartrate [Lopressor] 50 mg PO BID@0800,1600 Oxybutynin Xl [Ditropan XL] 5 mg PO DAILY@0800 bisacodyL [Dulcolax] 10 mg RECTAL DAILY PRN PRN Reason: Constipation polyethylene glycoL 3350 [Miralax] 17 gm PO DAILY@0800 Cholecalciferol [Vitamin D3 (25 Mcg = 1000 Iu)] 25 mcg PO DAILY@0800 Acetaminophen [Tylenol Arthritis] 650 mg PO Q6H PRN PRN Reason: Pain Amitriptyline HCl [Elavil] 10 mg PO HS Changed HYDROcodone/APAP 10-325MG [[place] 10-325] 1 tab PO Q6H PRN #2 tab PRN Reason: Pain Baclofen 10 mg PO TID@0800,1200,1800 PRN #0 PRN Reason: Pain Discontinued ALPRAZolam [Xanax] 0.25 mg PO TID@0800,1200,1800 Discharge Medication List bisacodyL [Bisacodyl] 5 mg PO DAILY 09/03/21 [History] rOPINIRole HCL [Requip] 1 mg PO HS 09/03/21 [History] polyethylene glycoL 3350 [Miralax] 17 gm PO DAILY@0800 12/23/22 [History] Cholecalciferol [Vitamin D3 (25 Mcg = 1000 Iu)] 25 mcg PO DAILY@0800 01/14/23 [History] Metoprolol Tartrate [Lopressor] 50 mg PO BID@0800,1600 01/14/23 [History] Oxybutynin Xl [Ditropan XL] 5 mg PO DAILY@0800 01/14/23 [History] Acetaminophen [Tylenol Arthritis] 650 mg PO Q6H PRN 02/24/23 [History] Amitriptyline HCl [Elavil] 10 mg PO HS 02/24/23 [History] bisacodyL [Dulcolax] 10 mg RECTAL DAILY PRN 02/24/23 [History] ALPRAZolam [Xanax] 0.25 mg PO DAILY PRN #3 tab 02/27/23 [Rx] Baclofen 10 mg PO TID@0800,1200,1800 PRN #0 02/27/23 [Rx] HYDROcodone/APAP 10-325MG [[place] 10-325] 1 tab PO Q6H PRN #2 tab 02/27/23 [Rx] Follow up Appointment(s)/Referral(s): Radha Peacock MD [Primary Care Provider] - 1-2 days Activity/Diet/Wound Care/Special Instructions: Patient is returning to [facility] Activity as tolerated Continue with Pond catheter care In regards to his pain medications and anxiety medications recommend as needed not scheduled Recommend continue with heart healthy diet Continue with ensure compact supplements twice daily with meals Discharge Disposition: TRANSFER TO SNF/ECF
--- NOTE | 2023-02-27 15:22 | P.PN ---
Subjective Progress Note Date: 02/27/23 Principal diagnosis: Catheter associated UTI Patient is a 47-year-old male with a past medical history significant for recurrent disease reflux patient did have a history of hydronephrosis with renal and ureteral calculi and a history of recurrent UTI patient is a [place] resident and has been brought to the hospital for evaluation of mental status changes, did have a positive with concern for possible catheter associated UTI patient Pond catheter was changed and the patient UA was still positive and did have mildly elevated CRP. On today's evaluation that is 02/27/2023, the patient continues to be afebrile the patient is breathing comfortably on room air , the patient denies having any chest pain shortness of breath or cough no abdominal pain and no diarrhea has been reported Objective - Vital Signs Vital signs: Vital Signs Temp 98.9 F 02/27/23 12:24 Pulse 116 H 02/27/23 12:24 Resp 18 02/27/23 12:24 BP 104/71 02/27/23 12:24 Pulse Ox 100 02/27/23 12:24 FiO2 Intake & Output 02/26/23 02/27/23 02/27/23 18:59 06:59 18:59 Output Total 700 300 Balance -700 -300 Weight 72.575 kg Output: Urine 700 300 Other: Voiding Method Indwelling Catheter Indwelling Catheter Indwelling Catheter # Bowel Movements 1 - Exam GENERAL DESCRIPTION: Middle-aged male lying in bed in no distress RESPIRATORY SYSTEM: Unlabored breathing , decreased breath sounds at bases HEART: S1 S2 regular rate and rhythm , ABDOMEN: Soft , no tenderness EXTREMITIES: No edema feet - Labs CBC & Chem 7: 02/24/23 18:20 02/24/23 18:20 Labs: Microbiology - Last 24 Hours (Table) 02/26/23 00:40 Urine Culture - Final Urine,Voided 02/24/23 18:20 Blood Culture - Preliminary Blood No Growth after 48 hours 02/24/23 18:20 Blood Culture - Preliminary Blood No Growth after 48 hours Assessment and Plan (1) Urinary tract infection Current Visit: Yes Status: Acute Code(s): N39.0 - URINARY TRACT INFECTION, SITE NOT SPECIFIED SNOMED Code(s): 32326508 Plan: 1patient was in the hospital with mental status changes in this patient who do have a chronic indwelling Pond catheter also with a history of renal stone and a history of recurrent UTI did have a positive UA however patient is not running any fever White count has been normal with a question of possible Pond colonization versus UTI less likely but not entirely excluded 2The patient Pond catheter and repeat UA was positive culture patient did have elevated CRP possible mild cystitis adequately treated with no need for antibiotics on discharge Time with Patient: Less than 30
[2023-02-27 16:01] LABS: Anisocytosis Slight; Basophils % (A) 0 %; Eosinophils # (A) 0.4 k/uL (0-0.7); Eosinophils % (A) 5 %; HCT 42.6 % (39.0-53.0); HGB 13.1 gm/dL (13.0-17.5); Lymphocytes # (A) 2.3 k/uL (1.0-4.8); Lymphocytes % (A) 26 %; MCH 27.7 pg (25.0-35.0); MCHC 30.7 g/dL (31.0-37.0); MCV 90.2 fL (80.0-100.0); Monocytes # (A) 0.6 k/uL (0-1.0); Monocytes % (A) 6 %; Neutrophils # (A) 5.3 k/uL (1.3-7.7); Neutrophils % (A) 60 %; Platelet Count 238 k/uL (150-450); RBC 4.73 m/uL (4.30-5.90); WBC 8.9 k/uL (3.8-10.6)
--- NOTE | 2023-02-28 08:35 | CDI ---
Documentation Clarification Form Date: 02/28/2023 7:16:52 AM From: Farrah Pappas RN,CCDS Admit Date: 02/24/2023 7:56:00 PM Patient Name: Yaakov Mora Visit Number: [id number] Discharge Date: 02/27/2023 6:06:00 PM ATTENTION: The Clinical Documentation Specialists (CDI) and [facility] Coding Staff appreciate your assistance in clarifying documentation. Please respond to the clarification below the line at the bottom and electronically sign. The CDI & [facility] Coding staff will review the response and follow-up if needed. Please note: Queries are made part of the Legal Health Record. If you have any questions, please contact the author of this message via ITS. Dr. Sheryl Cote Your patient has the documented symptom of Altered Mental Status secondary to polypharmacy. Additional clarification regarding the etiology/cause of this symptom is requested. History/Risk Factors: Chronic Pond catheter, OA, pancreatitis Hypertension, Anemia Rickets Chronic skin ulcer, Vit D deficiency Clinical Indicators: 47-year-old male admit with urinary tract infection with chronic indwelling Pond catheter. He presents with episodes of increased confusion, delusions, and combativeness with staff. H/P has patient on multiple medications which can cause confusion including Xanax, Requip, Baclofen, Ditropan, Elavil. Altered mental status secondary to polypharmacy. Patient is also under treatment for UTI secondary to Pond catheter. 02/24 Vital signs: 98/83 117 18 97.2 95% RA 4/3 WBC 8.1, Cr 0.62, C-Reactive Protein 3.7 4/3 UA Appearance Turbid, Ur Leukocyte Esterase Large Urine WBC >182 4/ Urine culture No growth after 18 hours Blood culture: preliminary, No growth after 72 Treatment: Baclofen 10 MG PO TID as needed Hydrocodone/APAP 10-25 1 tab Q6 hrs. as needed Xanax 0.25 MG PO Daily as needed Please clarify the etiology of the symptom of Altered Mental Status: [ ] Toxic metabolic encephalopathy due to polypharmacy [ ] Other condition (please specify) [ ] Unable to determine (Template Last Revised: December 2020) ADDENDUM Additional diagnoses: Altered mental status, present on admission, likely Toxic metabolic encephalopathy due to polypharmacy Dictated By: Lorri Chappell Signed By: <Electronically signed by Lorri DOCKERY> 02/27/23 1429 DD/ 21 TD/TT:02/27/23 142 DAVID
== END 2023-02-27 18:06 | DRG 52 ==
LOC: EC 17:16 → 5NMEDONC 19:56
PROVIDERS: ADMIT Hospitalist; ATTEND Hospitalist
DX: G92.8 Other toxic encephalopathy (principal); R82.71 Bacteriuria; L89.152 Pressure ulcer of sacral region, stage 2; L89.890 Pressure ulcer of other site, unstageable; I10 Essential (primary) hypertension; D50.9 Iron deficiency anemia, unspecified; K21.9 Gastro-esophageal reflux disease without esophagitis; G62.9 Polyneuropathy, unspecified; K80.20 Calculus of gallbladder without cholecystitis without obstruction; M19.90 Unspecified osteoarthritis, unspecified site; M21.20 Flexion deformity, unspecified site; E64.3 Sequelae of rickets; K59.04 Chronic idiopathic constipation; L40.9 Psoriasis, unspecified; F32.9 Major depressive disorder, single episode, unspecified; F41.9 Anxiety disorder, unspecified; Z79.899 Other long term (current) drug therapy; Z74.01 Bed confinement status; Z87.440 Personal history of urinary (tract) infections; Z87.442 Personal history of urinary calculi; Y84.6 Urinary catheterization as the cause of abnormal reaction of the patient, or of later complication, without mention of misadventure at the time of the procedure
CPT/HCPCS: 36415; 51702; 71045; 80053; 81001; 83605; 84484; 85025; 85610; 85730; 86140; 87040; 87086; 93005; 96361; 96365; 96366; 96367; 99285

== ENCOUNTER 2025-02-04 15:04 | Inpatient (IN) | payer OTHER ==
--- NOTE | 2025-02-04 15:25 | ED ---
General Adult HPI - General Chief complaint: Altered Mental Status Stated complaint: AMS, abn labs Time Seen by Provider: 02/04/25 15:06 Source: patient, EMS, RN notes reviewed, old records reviewed Mode of arrival: EMS Limitations: altered mental status, physical limitation - History of Present Illness Initial comments: -year-old male presenting for evaluation of abnormal labs from the group home. Patient apparently had been recently discharged back to the group home after a prolonged stay at [facility] where he underwent abdominal surgery and had complication of sepsis. He is currently on IV antibiotics. Patient had laboratory testing performed earlier today which was reported as abnormal. Uncertain exactly what lab test was abnormal at the time my initial evaluation. Patient himself has no complaints he is bedbound secondary to cerebral palsy and has been residing at the group home for some time. He denies fever. He denie s abdominal pain. - Related Data Home Medications Medication Instructions Recorded Confirmed bisacodyL [Bisacodyl] 5 mg PO DAILY 09/03/21 02/24/23 rOPINIRole HCL [Requip] 1 mg PO HS 09/03/21 02/24/23 polyethylene glycoL 3350 [Miralax] 17 gm PO DAILY@0800 12/23/22 02/24/23 Cholecalciferol [Vitamin D3 (25 25 mcg PO DAILY@0800 01/14/23 02/24/23 Mcg = 1000 Iu)] Metoprolol Tartrate [Lopressor] 50 mg PO BID@0800,1600 01/14/23 02/24/23 Oxybutynin Xl [Ditropan XL] 5 mg PO DAILY@0800 01/14/23 02/24/23 Acetaminophen [Tylenol Arthritis] 650 mg PO Q6H PRN 02/24/23 02/24/23 Amitriptyline HCl [Elavil] 10 mg PO HS 02/24/23 02/24/23 bisacodyL [Dulcolax] 10 mg RECTAL DAILY PRN 02/24/23 02/24/23 Previous Rx's Medication Instructions Recorded ALPRAZolam [Xanax] 0.25 mg PO DAILY PRN #3 tab 02/27/23 Baclofen 10 mg PO TID@0800,1200,1800 PRN #0 02/27/23 HYDROcodone/APAP 10-325MG [[place] 1 tab PO Q6H PRN #2 tab 02/27/23 10325] Allergies Allergy/AdvReac Type Severity Reaction Status Date / Time No Known Allergies Allergy Verified 02/04/25 15:20 Review of Systems ROS Statement: Those systems with pertinent positive or pertinent negative responses have been documented in the HPI. ROS Other: All systems not noted in ROS Statement are negative. Past Medical History Past Medical History: GERD/Reflux, Musculoskeletal Disorder, Osteoarthritis (OA), Skin Disorder Additional Past Medical History / Comment(s): poor hygiene, connective tissue disorder-unknown type per patient, vitamin D deficiency/Rickets, acute pancreatitis, cholelithiasis, psoriasis, deformities and contractures from rickets, flexion deformity, osteoarthritis, essential hypertension, major depressive disorder, iron deficiency anemia, non pressure chronic ulcer of skin, chronic idopathic constipation, hydronephrosis with renal and ureeral calculous, uti History of Any Multi-Drug Resistant Organisms: None Reported Date of last positivie culture/infection: 12/27/21 MDRO Source:: Urine Past Surgical History: No Surgical Hx Reported Past Anesthesia/Blood Transfusion Reactions: No Reported Reaction Past Psychological History: Anxiety, Depression Smoking Status: Never smoker Past Alcohol Use History: None Reported Past Drug Use History: None Reported - Past Family History Father Additional Family Medical History / Comment(s): bipolar Mother Family Medical History: COPD, Deep Vein Thrombosis (DVT), Hypertension General Exam Limitations: altered mental status, physical limitation General appearance: alert, in no apparent distress Head exam: Present: atraumatic, normocephalic ENT exam: Present: mucous membranes dry Neck exam: Present: normal inspection. Absent: tenderness, meningismus Respiratory exam: Present: decreased breath sounds. Absent: respiratory distress Cardiovascular Exam: Present: regular rate, normal rhythm GI/Abdominal exam: Present: soft, other (Laparoscopy incisions nonerythematous no drainage). Absent: distended, tenderness, guarding, rebound Neurological exam: Present: alert Skin exam: Present: warm, dry Course Vital Signs 02/04/25 15:08 Temperature 97.4 F L Respiratory 18 Rate Blood Pressure 89/52 O2 Sat by Pulse 95 Oximetry Medical Decision Making - Medical Decision Making Was pt. sent in by a medical professional or institution (, PA, INSURANCE SPECIALIST, urgent care, hospital, or group home...) When possible be specific @Sent in from the group home for evaluation Did you speak to anyone other than the patient for history (EMS, parent, family, police, friend...)? What history was obtained from this source @ -Yes, paramedics Did you review nursing and triage notes (agree or disagree)? Why? @ -I reviewed and agree with nursing and triage notes Were old charts reviewed (outside hosp., previous admission, EMS record, old EKG, old radiological studies, urgent care reports/EKG's, group home records)? Report findings @ -No old charts were reviewed Differential Altered Mental Status: Hypoglycemia, DKA, hypercapnia, ETOH, overdose, CO poisoning, trauma, myxedema coma, HTN encephalopathy, infection, encephalitis, psychosis, intercranial hemorrhage, hepatic encephalopathy, meningitis, CVA, this is not meant to be an all-inclusive list @ -Not applicable EKG interpreted by me (3pts min.). @Sinus rhythm rate of 85, MO interval 147, QRS duration 103, QTc [address] segment elevation. Artifact limiting assessment. X-rays interpreted by me (1pt min.). @ -Single view chest x-ray negative for consolidated pneumonia CT interpreted by me (1pt min.). @ -None done U/S interpreted by me (1pt. min.). @ -None done What testing was considered but not performed or refused? (CT, X-rays, U/S, labs)? Why? @ -None What meds were considered but not given or refused? Why? @ -None Did you discuss the management of the patient with other professionals (professionals i.e. , PA, INSURANCE SPECIALIST, lab, RT, psych nurse, social media executive, oleomargarine maker, teacher, chief mechanical officer, catalytic case operator)? Give summary @Yes Dr. Peacock Was smoking cessation discussed for >3mins.? @ -No Was critical care preformed (if so, how long)? @ -No Were there social determinants of health that impacted care today? How? (Homelessness, low income, unemployed, alcoholism, drug addiction, transportation, low edu. Level, literacy, decrease access to med. care, long term, rehab)? @ -No Was there de-escalation of care discussed even if they declined (Discuss DNR or withdrawal of care, Hospice)? DNR status @ -No What co-morbidities impacted this encounter? (DM, HTN, Smoking, COPD, CAD, Cancer, CVA, ARF, Chemo, Hep., AIDS, mental health diagnosis, sleep apnea, morbid obesity)? @Debility, recent laparoscopy, prolonged hospital stay Was patient admitted / discharged? Hospital course, mention meds given and route, prescriptions, significant lab abnormalities, going to OR and other pertinent info. @ -[49-year-old male sent in with abnormal labs, concern for recurrent infe ction patient is currently on IV antibiotics through right upper extremity PICC line. Blood cultures are obtained, laboratory testing including CBC, CMP is obtained. Patient has a normal white blood cell count, improved anemia. His potassium is 2.3 requiring replacement both oral and IV potassium has been ordered. Cultures are pending. Patient continued on Rocephin. Admitted to his primary care provider Dr. Peacock with infectious disease on consult. Undiagnosed new problem with uncertain prognosis? @ -No Drug Therapy requiring intensive monitoring for toxicity (Heparin, Nitro, Insulin, Cardizem)? @ -No Were any procedures done? @ -No Diagnosis/symptom? @Dehydration, hypokalemia Acute, or Chronic, or Acute on Chronic? @ -Acute Uncomplicated (without systemic symptoms) or Complicated (systemic symptoms)? @ -Default Side effects of treatment? @ -No Exacerbation, Progression, or Severe Exacerbation? @ -No Poses a threat to life or bodily function? How? (Chest pain, [place], [place], pneumonia, PE, COPD, DKA, ARF, appy, cholecystitis, CVA, Diverticulitis, Homicidal, Suicidal, threat to staff... and all critical care pts) @ -[Yes, hypovolemia, sepsis, electrolyte abnormality - Lab Data Result diagrams: 02/04/25 16:24 02/04/25 16:24 Lab Results 02/04/25 02/04/25 02/04/25 Range/Units 16:24 16:24 16:24 WBC 8.5 (3.8-10.6) k/uL RBC 4.22 L (4.30-5.90) m/uL Hgb 9.7 L (13.0-17.5) gm/dL Hct 33.7 L (39.0-53.0) % MCV 79.8 L (80.0-100.0) fL MCH 23.1 L (25.0-35.0) pg MCHC 28.9 L (31.0-37.0) g/dL RDW 19.3 H (11.5-15.5) % Plt Count 126 L (150-450) k/uL MPV 9.9 Neutrophils % 77 % Lymphocytes % 15 % Monocytes % 4 % Eosinophils % 1 % Basophils % 0 % Neutrophils # 6.5 (1.3-7.7) k/uL Lymphocytes # 1.3 (1.0-4.8) k/uL Monocytes # 0.4 (0-1.0) k/uL Eosinophils # 0.1 (0-0.7) k/uL Basophils # 0.0 (0-0.2) k/uL Hypochromasia Marked Anisocytosis Slight Microcytosis Slight PT 19.5 H (10.0-12.5) sec INR 1.9 H (<1.2) APTT 30.5 H (22.0-30.0) sec Sodium 140 (137-145) mmol/L Potassium 2.3 L* (3.5-5.1) mmol/L Chloride 106 (98-107) mmol/L Carbon Dioxide 27 (22-30) mmol/L Anion Gap 7 mmol/L BUN 6 L (9-20) mg/dL Creatinine 0.49 L (0.66-1.25) mg/dL Est GFR (CKD-EPI)AfAm >90 (>60 ml/min/1.73 sqM) Est GFR (CKD-EPI)NonAf >90 (>60 ml/min/1.73 sqM) Glucose 104 H (74-99) mg/dL Plasma Lactic Acid Rene (0.7-2.0) mmol/L Calcium 7.0 L (8.4-10.2) mg/dL Magnesium 1.8 (1.6-2.3) mg/dL Total Bilirubin 0.5 (0.2-1.3) mg/dL AST 131 H (17-59) U/L ALT 46 (4-49) U/L Alkaline Phosphatase 325 H (38-126) U/L Total Protein 5.6 L (6.3-8.2) g/dL Albumin 1.8 L (3.5-5.0) g/dL Influenza Type A (PCR) (Not Detectd) Influenza Type B (PCR) (Not Detectd) RSV (PCR) (Not Detectd) SARS-CoV-2 (PCR) (Not Detectd) 02/04/25 02/04/25 Range/Units 16:24 16:29 WBC (3.8-10.6) k/uL RBC (4.30-5.90) m/uL Hgb (13.0-17.5) gm/dL Hct (39.0-53.0) % MCV (80.0-100.0) fL MCH (25.0-35.0) pg MCHC (31.0-37.0) g/dL RDW (11.5-15.5) % Plt Count (150-450) k/uL MPV Neutrophils % % Lymphocytes % % Monocytes % % Eosinophils % % Basophils % % Neutrophils # (1.3-7.7) k/uL Lymphocytes # (1.0-4.8) k/uL Monocytes # (0-1.0) k/uL Eosinophils # (0-0.7) k/uL Basophils # (0-0.2) k/uL Hypochromasia Anisocytosis Microcytosis PT (10.0-12.5) sec INR (<1.2) APTT (22.0-30.0) sec Sodium (137-145) mmol/L Potassium (3.5-5.1) mmol/L Chloride (98-107) mmol/L Carbon Dioxide (22-30) mmol/L Anion Gap mmol/L BUN (9-20) mg/dL Creatinine (0.66-1.25) mg/dL Est GFR (CKD-EPI)AfAm (>60 ml/min/1.73 sqM) Est GFR (CKD-EPI)NonAf (>60 ml/min/1.73 sqM) Glucose (74-99) mg/dL Plasma Lactic Acid Rene 1.1 (0.7-2.0) mmol/L Calcium (8.4-10.2) mg/dL Magnesium (1.6-2.3) mg/dL Total Bilirubin (0.2-1.3) mg/dL AST (17-59) U/L ALT (4-49) U/L Alkaline Phosphatase (38-126) U/L Total Protein (6.3-8.2) g/dL Albumin (3.5-5.0) g/dL Influenza Type A (PCR) Detected A (Not Detectd) Influenza Type B (PCR) Not Detected (Not Detectd) RSV (PCR) Not Detected (Not Detectd) SARS-CoV-2 (PCR) Not Detected (Not Detectd) Disposition Clinical Impression: Dehydration, Hypokalemia Disposition: ADMITTED IP TO THIS [facility] Condition: Stable Is patient prescribed a controlled substance at d/c from ED?: No Referrals: Radha Peacock MD [Primary Care Provider] - 1-2 days Time of Disposition: 17:26
--- NOTE | 2025-02-04 16:01 | XR ---
EXAMINATION TYPE: XR chest 1V portable DATE OF EXAM: 02/04/2025 3:53 PM COMPARISON: Chest radiographs from 02/24/2023 CLINICAL INDICATION: Male, 49 years old with history of fever; [facility] TECHNIQUE: XR chest 1V portable Frontal view of the chest. FINDINGS: Lungs/Pleura: Low lung volumes are present. There is no evidence of pleural effusion, focal consolida tion, or pneumothorax. Pulmonary vascularity: Unremarkable. Heart/mediastinum: Cardiomediastinal silhouette is unremarkable. Musculoskeletal: Degenerative changes of the shoulder joints. Other findings: None Lines/Tubes: Right-sided PICC line with distal tip at the cavoatrial junction. IMPRESSION: Radiopaque appropriate position. Low lung volumes no definitive airspace disease. [facility], , 02/04/2025 3:58 PM
[2025-02-04] MEDS: LACTATED RINGERS 1,000 ML IV ONE (16:29)
[2025-02-04 16:39] LABS: Anisocytosis Slight; Basophils % (A) 0 %; Eosinophils # (A) 0.1 k/uL (0-0.7); Eosinophils % (A) 1 %; HCT 33.7 % (39.0-53.0); HGB 9.7 gm/dL (13.0-17.5); Hypochromasia Marked; Lymphocytes # (A) 1.3 k/uL (1.0-4.8); Lymphocytes % (A) 15 %; MCH 23.1 pg (25.0-35.0); MCHC 28.9 g/dL (31.0-37.0); MCV 79.8 fL (80.0-100.0); Mean Platelet Volume 9.9; Microcytosis Slight; Monocytes # (A) 0.4 k/uL (0-1.0); Monocytes % (A) 4 %; Neutrophils # (A) 6.5 k/uL (1.3-7.7); Neutrophils % (A) 77 %; Platelet Count 126 k/uL (150-450); RBC 4.22 m/uL (4.30-5.90); RDW 19.3 % (11.5-15.5); WBC 8.5 k/uL (3.8-10.6)
[2025-02-04 16:51] LABS: INR 1.9 (<1.2); Partial Thromboplastin Time 30.5 sec (22.0-30.0); Prothrombin Time 19.5 sec (10.0-12.5)
[2025-02-04 16:56] LABS: ALT 46 U/L (4-49); AST 131 U/L (17-59); African American GFR (CKD) >90 (>60 ml/min/1.73 sqM); Albumin 1.8 g/dL (3.5-5.0); Alkaline Phosphatase 325 U/L (38-126); Anion Gap 7 mmol/L; Blood Urea Nitrogen 6 mg/dL (9-20); Carbon Dioxide 27 mmol/L (22-30); Chloride 106 mmol/L (98-107); Glucose 104 mg/dL (74-99); Magnesium 1.8 mg/dL (1.6-2.3); Non-African American GFR(CKD) >90 (>60 ml/min/1.73 sqM); Sodium 140 mmol/L (137-145); Total Bilirubin 0.5 mg/dL (0.2-1.3); Total Protein 5.6 g/dL (6.3-8.2)
[2025-02-04 17:00] LABS: Potassium 2.3 mmol/L (3.5-5.1)
[2025-02-04] MEDS: POTASSIUM CHLORIDE 10 MEQ in WATER FOR INJECTION 1 100ML.BAG IVPB SCH (17:21)
[2025-02-04] MEDS ORDERED: NALOXONE 0.4 MG/ML 1 ML VIAL IV PRN (17:23)
[2025-02-04 17:24] LABS: Influenza A Detected (Not Detectd); Influenza B Not Detected (Not Detectd); RSV Not Detected (Not Detectd)
[2025-02-04] MEDS: POTASSIUM BICARBONATE/CIT AC 20 MEQ TABLET.EFF PO ONE (17:33)
[2025-02-04] MEDS: SODIUM CHLORIDE 0.9% 1,000 ML IV SCH (17:39)
[2025-02-04] MEDS: OSELTAMIVIR 75 MG CAP PO SCH (18:57)
[2025-02-05 04:30] LABS: ALT 43 U/L (4-49); AST 113 U/L (17-59); African American GFR (CKD) >90 (>60 ml/min/1.73 sqM); Albumin 1.8 g/dL (3.5-5.0); Albumin/Globulin Ratio 0.5; Alkaline Phosphatase 325 U/L (38-126); Anion Gap 9 mmol/L; Blood Urea Nitrogen 5 mg/dL (9-20); Calcium 7.1 mg/dL (8.4-10.2); Carbon Dioxide 25 mmol/L (22-30); Chloride 108 mmol/L (98-107); Globulin 3.8 g/dL; Glucose 97 mg/dL (74-99); Non-African American GFR(CKD) >90 (>60 ml/min/1.73 sqM); Sodium 142 mmol/L (137-145); Total Bilirubin 0.5 mg/dL (0.2-1.3); Total Protein 5.6 g/dL (6.3-8.2)
[2025-02-05 04:37] LABS: Potassium 2.5 mmol/L (3.5-5.1)
[2025-02-05] MEDS ORDERED: Potassium Replacement Protocol 1 EACH MISC MISCELLANE PRN ×2 (05:28→12:27)
[2025-02-05] MEDS: POTASSIUM CHLORIDE ER 10 MEQ TAB.ER.PRT PO STA (05:50)
[2025-02-05] MEDS: POTASSIUM CHLORIDE 10 MEQ in WATER FOR INJECTION 1 100ML.BAG IVPB SCH (06:46)
[2025-02-05] MEDS ORDERED: NON FORMULARY DRUG (Naloxone Hcl [Narcan] 4 MG Each) NASAL PRN (10:31)
[2025-02-05] MEDS ORDERED: bisacodyL 10 MG SUPP RECTAL PRN (10:31)
[2025-02-05] MEDS: METOPROLOL TARTRATE 25 MG TAB PO SCH (11:44)
[2025-02-05] MEDS: BACLOFEN 10 MG TAB PO SCH (11:44)
[2025-02-05] MEDS: TAMSULOSIN 0.4 MG CAP.ER.24H PO SCH (11:44)
--- NOTE | 2025-02-05 12:56 | P.HPIM ---
History of Present Illness H&P Date: 02/05/25 Yaakov Mora, is a 49-year-old male, resident of a long term, who presented to [facility] emergency room with a chief complaint of mental status changes, he was recently admitted to [facility] with urinary tract infection and sepsis, he returned to [facility], however he started having worsening mental status changes with hallucinations, chest x-ray done in the emergency room revealed evidence of bilateral infiltrates suggestive of pneumonia, he also had severe electrolyte imbalance with potassium of 2.3 and low magnesium, he was transferred to [facility] emergency room for further evaluation and treatment. He was evaluated in the emergency room vital examination on presentation revealed a temperature of 97.4 pulse 70 respiration 18 blood pressure 89/52 pulse ox 93% on room air Laboratory data revealed a white blood count of 8.5 hemoglobin 9.7 platelet count 126 sodium 140 potassium 2.3 BUN 6 creatinine 0.49 AST 131 alkaline phosphatase 325, influenza A PCR was positive, magnesium 1.5 Testing in the emergency room revealed, chest x-ray revealed right-sided PICC line with distal tip at the cavoatrial junction, low lung volumes without definitive airspace disease. Patient was admitted to medical floor for further evaluation and treatment Past Medical History Past Medical History: GERD/Reflux, Musculoskeletal Disorder, Osteoarthritis (OA), Skin Disorder Additional Past Medical History / Comment(s): poor hygiene, connective tissue disorder-unknown type per patient, vitamin D deficiency/Rickets, acute pancreatitis, cholelithiasis, psoriasis, deformities and contractures from rickets, flexion deformity, osteoarthritis, essential hypertension, major depressive disorder, iron deficiency anemia, non pressure chronic ulcer of skin, chronic idopathic constipation, hydronephrosis with renal and ureeral calculous, uti History of Any Multi-Drug Resistant Organisms: None Reported Date of last positivie culture/infection: 12/27/21 MDRO Source:: Urine Past Surgical History: Cholecystectomy Past Anesthesia/Blood Transfusion Reactions: No Reported Reaction Past Psychological History: Anxiety, Depression Additional Psychological History / Comment(s): Pt is bedbound. He lives at [facility] since 2017. Smoking Status: Never smoker Past Alcohol Use History: None Reported Past Drug Use History: None Reported - Past Family History Father Additional Family Medical History / Comment(s): bipolar Mother Family Medical History: COPD, Deep Vein Thrombosis (DVT), Hypertension Medications and Allergies Home Medications Medication Instructions Recorded Confirmed Type bisacodyL [Bisacodyl] 5 mg PO DAILY 09/03/21 02/04/25 History polyethylene glycoL 3350 [Miralax] 17 gm PO HS 12/23/22 02/04/25 History Oxybutynin Xl [Ditropan XL] 5 mg PO DAILY@0800 01/14/23 02/04/25 History Acetaminophen [Tylenol Arthritis] 650 mg PO Q6H PRN 02/24/23 02/04/25 History bisacodyL [Dulcolax] 10 mg RECTAL DAILY PRN 02/24/23 02/04/25 History ALPRAZolam [Xanax] 0.25 mg PO DAILY PRN 02/04/25 02/04/25 History ALPRAZolam [Xanax] 0.25 mg PO TUFR@0800 02/04/25 02/04/25 History Amino Acids/Protein Hydrolys 30 ml PO BID 02/04/25 02/04/25 History [Pro-Stat Awc Liquid] Apixaban [Eliquis] 2.5 mg PO BID 02/04/25 02/04/25 History Baclofen 10 mg PO TID@0800,1200,1800 02/04/25 02/04/25 History Ergocalciferol [Vitamin D2 (1250 1,250 mcg PO MO@0800 02/04/25 02/04/25 History Mcg = 82088 Iu)] Escitalopram [Lexapro] 10 mg PO DAILY 02/04/25 02/04/25 History Ferrous Sulfate [Feosol] 325 mg PO DAILY 02/04/25 02/04/25 History Fluconazole [Diflucan] 400 mg PO DAILY@0800 02/04/25 02/04/25 History Magic Cup 1 dose PO BID 02/04/25 02/04/25 History Menthol-Zinc Oxide Oint 1 applic TOPICAL QID 02/04/25 02/04/25 History [Calmoseptine Ointment] Metoprolol Tartrate [Lopressor] 25 mg PO BID 02/04/25 02/04/25 History Multivitamins, Thera [Multivitamin 1 tab PO HS 02/04/25 02/04/25 History (formulary)] Naloxone HCl [Narcan] 4 mg NASAL DIRECTED PRN 02/04/25 02/04/25 History Omeprazole 20 mg PO DAILY 02/04/25 02/04/25 History Ondansetron Odt [Zofran Odt] 4 mg PO Q6H PRN 02/04/25 02/04/25 History Potassium Chloride ER [K-Dur 20] 20 meq PO DAILY@0800 02/04/25 02/04/25 History Tamsulosin [Flomax] 0.4 mg PO DAILY 02/04/25 02/04/25 History cefTRIAXone [Rocephin] 1 gm IVPB HS@2300 02/04/25 02/04/25 History oxyCODONE HCL [OxyIR] 5 mg PO Q6H PRN 02/04/25 02/04/25 History rOPINIRole HCL [Requip XL] 2 mg PO HS 02/04/25 02/04/25 History Allergies Allergy/AdvReac Type Severity Reaction Status Date / Time lanolin Allergy Unknown Verified 02/04/25 18:28 Physical Exam Vitals: Vital Signs Temp Pulse Pulse Resp BP BP Pulse Ox 02/05/25 08:00 98.1 F 127 H 22 104/56 90 L 02/05/25 01:02 97.6 F 84 16 135/68 95 02/04/25 21:55 98.9 F 93 18 96/59 95 02/04/25 19:00 95 18 116/74 94 L 02/04/25 17:00 70 18 111/64 93 L 02/04/25 15:08 97.4 F L 18 89/52 95 Intake and Output 02/04/25 02/05/25 02/05/25 22:59 06:59 14:59 Output Total 350 Balance -350 Output: Urine 350 Other: Weight 72.575 kg In general patient is alert and oriented x 3 in no distress HEENT head normocephalic and atraumatic Neck is supple no JVD no goiter no lymphadenopathy no carotid bruit Chest examination reveals a scattered crackles bilaterally no wheezing Cardiac exam reveals regular heart sounds S1 and S2 no gallops no murmurs Abdomen is soft nontender no organomegaly with normal bowel sounds Extremity exam reveals no edema no cyanosis or clubbing, there is severe joint deformity in hands Neurological examination reveals no gross focal deficits Results CBC & Chem 7: 02/04/25 16:24 02/05/25 03:17 Labs: Abnormal Lab Results - Last 24 Hours (Table) 02/04/25 02/04/25 02/04/25 Range/Units 16:24 16:24 16:24 RBC 4.22 L (4.30-5.90) m/uL Hgb 9.7 L (13.0-17.5) gm/dL Hct 33.7 L (39.0-53.0) % MCV 79.8 L (80.0-100.0) fL MCH 23.1 L (25.0-35.0) pg MCHC 28.9 L (31.0-37.0) g/dL RDW 19.3 H (11.5-15.5) % Plt Count 126 L (150-450) k/uL PT 19.5 H (10.0-12.5) sec INR 1.9 H (<1.2) APTT 30.5 H (22.0-30.0) sec Potassium 2.3 L* (3.5-5.1) mmol/L Chloride (98-107) mmol/L BUN 6 L (9-20) mg/dL Creatinine 0.49 L (0.66-1.25) mg/dL Glucose 104 H (74-99) mg/dL Calcium 7.0 L (8.4-10.2) mg/dL Magnesium (1.6-2.3) mg/dL AST 131 H (17-59) U/L Alkaline Phosphatase 325 H (38-126) U/L Total Protein 5.6 L (6.3-8.2) g/dL Albumin 1.8 L (3.5-5.0) g/dL Influenza Type A (PCR) (Not Detectd) 02/04/25 02/05/25 02/05/25 Range/Units 16:29 03:17 06:40 RBC (4.30-5.90) m/uL Hgb (13.0-17.5) gm/dL Hct (39.0-53.0) % MCV (80.0-100.0) fL MCH (25.0-35.0) pg MCHC (31.0-37.0) g/dL RDW (11.5-15.5) % Plt Count (150-450) k/uL PT (10.0-12.5) sec INR (<1.2) APTT (22.0-30.0) sec Potassium 2.5 L* (3.5-5.1) mmol/L Chloride 108 H (98-107) mmol/L BUN 5 L (9-20) mg/dL Creatinine 0.47 L (0.66-1.25) mg/dL Glucose (74-99) mg/dL Calcium 7.1 L (8.4-10.2) mg/dL Magnesium 1.5 L (1.6-2.3) mg/dL AST 113 H (17-59) U/L Alkaline Phosphatase 325 H (38-126) U/L Total Protein 5.6 L (6.3-8.2) g/dL Albumin 1.8 L (3.5-5.0) g/dL Influenza Type A (PCR) Detected A (Not Detectd) Thrombosis Risk Factor Assmnt - Choose All That Apply Any of the Below Risk Factors Present?: Yes Each Factor Represents 1 point: Age 41-60 years, Obesity (BMI >25) Other Risk Factors: Yes Each Risk Factor Represents 2 Points: Patient confined to bed Other congenital or acquired thrombophilia - If yes, enter type in comment: No Thrombosis Risk Factor Assessment Total Risk Factor Score: 4 Thrombosis Risk Factor Assessment Level: Moderate Risk Assessment and Plan Plan: Acute influenza A infection Dehydration with hypotension Severe electrolyte imbalance with hypokalemia and hypomagnesemia Acute mental status changes Recent history of common bile duct calculus Recent admission with urinary tract infection and sepsis Underlying history of physical debility, patient is bedridden Underlying history of anemia Underlying history of depression Underlying history of benign prostatic hypertrophy Underlying history of restless leg syndrome Remote history of vitamin D deficiency with history of rickets, with significant bone deformity. At this time patient was seen and examined Home medications reviewed and reordered He was started on IV antibiotics ceftriaxone in the emergency room, he was also started on oral Tamiflu Infectious disease consultation was requested Patient was started on IV fluid, and electrolyte correction protocols Prognosis is guarded Will obtain records from [facility] Will follow closely
[2025-02-05] MEDS: MAGNESIUM SULFATE-D5W PMX 1 GM in DEXTROSE/WATER 1 100ML.BAG IVPB SCH (13:13)
[2025-02-05 14:01] LABS: Appearance,Urine Cloudy (Clear); Bacteria,Urine Occasional /hpf; Bilirubin,Urine Negative (Negative); Blood,Urine Large (Negative); Color,Urine Light Red; Glucose,Urine (UA) Negative (Negative); Ketones,Urine Trace (Negative); Leukocyte Esterase,Urine Large (Negative); Nitrite,Urine Positive (Negative); PH, Urine 6.5 (5.0-8.0); Protein,Urine 1+ (Negative); RBC,Urine >182 /hpf (0-5); Specific Gravity,Urine 1.011 (1.001-1.035); Squamous Epithelial Cell,Urine 1 /hpf (0-4); Urobilinogen,Urine <2.0 mg/dL (<2.0); WBC,Urine >182 /hpf (0-5)
[2025-02-05] MEDS: POTASSIUM CHLORIDE ER 20 MEQ TAB.ER PO SCH ×2 (15:59→21:38)
[2025-02-05] MEDS: MENTHOL-ZINC OXIDE OINT 113 GM TUBE TOPICAL SCH (15:59)
[2025-02-05] MEDS ORDERED: NON FORMULARY DRUG (Magic Cup 1 EACH Ml) PO SCH (21:00)
[2025-02-05] MEDS ORDERED: NON FORMULARY DRUG (Amino Acids/Protein Hydrolys [Pro-Stat Awc Liquid] 887 ML Liquid) PO SCH (21:00)
[2025-02-05] MEDS: MULTIVITAMINS, THERA 1 EACH TAB PO SCH (21:37)
[2025-02-05] MEDS: APIXABAN 2.5 MG TABLET PO SCH (21:37)
[2025-02-05] MEDS: polyethylene glycoL 3350 17 GM POWD.PACK PO SCH (21:38)
[2025-02-05] MEDS ORDERED: cefTRIAXone 1 GM VIAL IVPB SCH (23:00)
--- NOTE | 2025-02-05 23:26 | P.CONS ---
History of Present Illness - Reason for Consult Consult date: 02/05/25 Recurrent infection, parenteral nutrition Requesting physician: Edmar Holland - Chief Complaint Mental status changes x 1 day - History of Present Illness Patient is a 49-year-old male with a past medical history pertinent for reflux, vitamin D deficiency rickets pending tissue disorder in this patient apparently was recently admitted to [facility] with sepsis and UTI subsequently discharged from the [facility], the patient has been sent to [facility] for evaluation of mental status changes and this patient symptom apparently started 4 days ago before the patient was brought into the hospital on arrival to the ER the patient was afebrile he did have a low-grade fever of 99.9 this afternoon patient was tachycardic 1 point but not hypotensive or hypoxic patient did have white count of 8.5 creatinine 0.49 did have a significantly positive UA also tested for influenza A patient did have a chest x-ray that was no definite airspace disease patient has been started on ceftriaxone Diflucan Tamiflu infectious was consulted for further management of antibiotic therapy most information has been obtained from review of the chart as the patient could not provide any history Review of Systems Positive points has been mentioned in HPI complete review could not be obtained because of his underlying mental status Past Medical History Past Medical History: GERD/Reflux, Musculoskeletal Disorder, Osteoarthritis (OA), Skin Disorder Additional Past Medical History / Comment(s): poor hygiene, connective tissue disorder-unknown type per patient, vitamin D deficiency/Rickets, acute pancreatitis, cholelithiasis, psoriasis, deformities and contractures from rickets, flexion deformity, osteoarthritis, essential hypertension, major depressive disorder, iron deficiency anemia, non pressure chronic ulcer of skin, chronic idopathic constipation, hydronephrosis with renal and ureeral calculous, uti History of Any Multi-Drug Resistant Organisms: None Reported Year Discovered:: 12/27/21 MDRO Source:: Urine Past Surgical History: Cholecystectomy Past Anesthesia/Blood Transfusion Reactions: No Reported Reaction Past Psychological History: Anxiety, Depression Additional Psychological History / Comment(s): Pt is bedbound. He lives at [facility] since 2017. Smoking Status: Never smoker Past Alcohol Use History: None Reported Past Drug Use History: None Reported - Past Family History Father Additional Family Medical History / Comment(s): bipolar Mother Family Medical History: COPD, Deep Vein Thrombosis (DVT), Hypertension Medications and Allergies Home Medications Medication Instructions Recorded Confirmed Type bisacodyL [Bisacodyl] 5 mg PO DAILY 09/03/21 02/04/25 History polyethylene glycoL 3350 [Miralax] 17 gm PO HS 12/23/22 02/04/25 History Oxybutynin Xl [Ditropan XL] 5 mg PO DAILY@0800 01/14/23 02/04/25 History Acetaminophen [Tylenol Arthritis] 650 mg PO Q6H PRN 02/24/23 02/04/25 History bisacodyL [Dulcolax] 10 mg RECTAL DAILY PRN 02/24/23 02/04/25 History ALPRAZolam [Xanax] 0.25 mg PO DAILY PRN 02/04/25 02/04/25 History ALPRAZolam [Xanax] 0.25 mg PO TUFR@0800 02/04/25 02/04/25 History Amino Acids/Protein Hydrolys 30 ml PO BID 02/04/25 02/04/25 History [Pro-Stat Awc Liquid] Apixaban [Eliquis] 2.5 mg PO BID 02/04/25 02/04/25 History Baclofen 10 mg PO TID@0800,1200,1800 02/04/25 02/04/25 History Ergocalciferol [Vitamin D2 (1250 1,250 mcg PO MO@0800 02/04/25 02/04/25 History Mcg = 46172 Iu)] Escitalopram [Lexapro] 10 mg PO DAILY 02/04/25 02/04/25 History Ferrous Sulfate [Feosol] 325 mg PO DAILY 02/04/25 02/04/25 History Fluconazole [Diflucan] 400 mg PO DAILY@0800 02/04/25 02/04/25 History Magic Cup 1 dose PO BID 02/04/25 02/04/25 History Menthol-Zinc Oxide Oint 1 applic TOPICAL QID 02/04/25 02/04/25 History [Calmoseptine Ointment] Metoprolol Tartrate [Lopressor] 25 mg PO BID 02/04/25 02/04/25 History Multivitamins, Thera [Multivitamin 1 tab PO HS 02/04/25 02/04/25 History (formulary)] Naloxone HCl [Narcan] 4 mg NASAL DIRECTED PRN 02/04/25 02/04/25 History Omeprazole 20 mg PO DAILY 02/04/25 02/04/25 History Ondansetron Odt [Zofran Odt] 4 mg PO Q6H PRN 02/04/25 02/04/25 History Potassium Chloride ER [K-Dur 20] 20 meq PO DAILY@0800 02/04/25 02/04/25 History Tamsulosin [Flomax] 0.4 mg PO DAILY 02/04/25 02/04/25 History cefTRIAXone [Rocephin] 1 gm IVPB HS@2300 02/04/25 02/04/25 History oxyCODONE HCL [OxyIR] 5 mg PO Q6H PRN 02/04/25 02/04/25 History rOPINIRole HCL [Requip XL] 2 mg PO HS 02/04/25 02/04/25 History Allergies Allergy/AdvReac Type Severity Reaction Status Date / Time lanolin Allergy Unknown Verified 02/04/25 18:28 Physical Exam Vitals: Vital Signs Temp Pulse Pulse Resp BP BP Pulse Ox 02/05/25 08:30 127 H 22 02/05/25 08:00 98.1 F 127 H 22 104/56 90 L 02/05/25 01:02 97.6 F 84 16 135/68 95 02/04/25 21:55 98.9 F 93 18 96/59 95 02/04/25 19:00 95 18 116/74 94 L 02/04/25 17:00 70 18 111/64 93 L 02/04/25 15:08 97.4 F L 18 89/52 95 Intake and Output 02/04/25 02/05/25 02/05/25 22:59 06:59 14:59 Output Total 350 Balance -350 Output: Urine 350 Other: Voiding Method External Catheter Weight 72.575 kg GENERAL DESCRIPTION: Middle-age male lying in bed, no distress. No tachypnea or accessory muscle of respiration use. HEENT: Shows Pallor , no scleral icterus. Oral mucous membrane is dry. NECK: Trachea central, no thyromegaly. LUNGS: Unlabored breathing. Clear to auscultation anteriorly. No wheeze or crackle. HEART: S1, S2, regular rate and rhythm. No loud murmur ABDOMEN: Soft, no tenderness EXTREMITIES: No edema of feet. SKIN: Multiple psoriatic patches no different cellulitis NEUROLOGICAL: The patient is awake, nonverbal orientation cannot be determined Results CBC & Chem 7: 02/04/25 16:24 02/05/25 19:43 Labs: Abnormal Lab Results - Last 24 Hours (Table) 02/04/25 02/04/25 02/04/25 Range/Units 16:24 16:24 16:24 RBC 4.22 L (4.30-5.90) m/uL Hgb 9.7 L (13.0-17.5) gm/dL Hct 33.7 L (39.0-53.0) % MCV 79.8 L (80.0-100.0) fL MCH 23.1 L (25.0-35.0) pg MCHC 28.9 L (31.0-37.0) g/dL RDW 19.3 H (11.5-15.5) % Plt Count 126 L (150-450) k/uL PT 19.5 H (10.0-12.5) sec INR 1.9 H (<1.2) APTT 30.5 H (22.0-30.0) sec Potassium 2.3 L* (3.5-5.1) mmol/L Chloride (98-107) mmol/L BUN 6 L (9-20) mg/dL Creatinine 0.49 L (0.66-1.25) mg/dL Glucose 104 H (74-99) mg/dL Calcium 7.0 L (8.4-10.2) mg/dL Magnesium (1.6-2.3) mg/dL AST 131 H (17-59) U/L Alkaline Phosphatase 325 H (38-126) U/L Total Protein 5.6 L (6.3-8.2) g/dL Albumin 1.8 L (3.5-5.0) g/dL Influenza Type A (PCR) (Not Detectd) 02/04/25 02/05/25 02/05/25 Range/Units 16:29 03:17 06:40 RBC (4.30-5.90) m/uL Hgb (13.0-17.5) gm/dL Hct (39.0-53.0) % MCV (80.0-100.0) fL MCH (25.0-35.0) pg MCHC (31.0-37.0) g/dL RDW (11.5-15.5) % Plt Count (150-450) k/uL PT (10.0-12.5) sec INR (<1.2) APTT (22.0-30.0) sec Potassium 2.5 L* (3.5-5.1) mmol/L Chloride 108 H (98-107) mmol/L BUN 5 L (9-20) mg/dL Creatinine 0.47 L (0.66-1.25) mg/dL Glucose (74-99) mg/dL Calcium 7.1 L (8.4-10.2) mg/dL Magnesium 1.5 L (1.6-2.3) mg/dL AST 113 H (17-59) U/L Alkaline Phosphatase 325 H (38-126) U/L Total Protein 5.6 L (6.3-8.2) g/dL Albumin 1.8 L (3.5-5.0) g/dL Influenza Type A (PCR) Detected A (Not Detectd) Assessment and Plan (1) Influenza A Current Visit: Yes Status: Acute Code(s): J10.1 - FLU DUE TO OTH IDENT INFLUENZA VIRUS W OTH RESP MANIFEST SNOMED Code(s): 438455742 (2) Urinary tract infection Current Visit: No Status: Acute Code(s): N39.0 - URINARY TRACT INFECTION, SITE NOT SPECIFIED SNOMED Code(s): 43696535 Plan: 1patient has been brought to the hospital for evaluation of mental status changes which is likely multifactorial in this patient who did tested positive for influenza A though chest x-ray did not show any evidence of pneumonia patient is currently breathing comfortably on room air and not behaving as a pneumonia, patient however did have significant positive UA with mental status changes concerning for symptomatic UTI, enteric gram-negative pathogen 2-patient will be treated with Tamiflu to finish a 5-day course of therapy 3-Rocephin 1 g daily while Waiting for urine culture to be finalized We will follow on clinical condition and cultures to further adjust medication if needed Thank you for this consultation we will follow the patient along with you Dictation was produced using [employer] software. please excuse any grammatical, word or spelling errors. Time with Patient: Greater than 30
[2025-02-06] MEDS: POTASSIUM CHLORIDE ER 20 MEQ TAB.ER PO SCH ×2 (04:09→09:05)
--- NOTE | 2025-02-06 07:32 | P.PN ---
Subjective Progress Note Date: 02/06/25 Yaakov Mora, is a 49-year-old male, resident of a assisted, who presented to [facility] emergency room with a chief complaint of mental status changes, he was recently admitted to [facility] with urinary tract infection and sepsis, he returned to [facility], however he started having worsening mental status changes with hallucinations, chest x-ray done in the emergency room revealed evidence of bilateral infiltrates suggestive of pneumonia, he also had severe electrolyte imbalance with potassium of 2.3 and low magnesium, he was transferred to [facility] emergency room for further evaluation and treatment. He was evaluated in the emergency room vital examination on presentation revealed a temperature of 97.4 pulse 70 respiration 18 blood pressure 89/52 pulse ox 93% on room air Laboratory data revealed a white blood count of 8.5 hemoglobin 9.7 platelet count 126 sodium 140 potassium 2.3 BUN 6 creatinine 0.49 AST 131 alkaline p hosphatase 325, influenza A PCR was positive, magnesium 1.5 Testing in the emergency room revealed, chest x-ray revealed right-sided PICC line with distal tip at the cavoatrial junction, low lung volumes without definitive airspace disease. Patient was admitted to medical floor for further evaluation and treatment On 02/06/2025 patient was seen and examined on the medical floor, initially patient was unresponsive, and having some shaking movement in extremities, subsequently patient was more alert responsive, confused in no apparent distress. His vital exam revealed a temperature of 100.1 pulse 108 respiration 20 blood pressure 103/68 pulse ox 92% on room air, labs are still pending potassium is up to 3.5 Objective - Vital Signs Vital signs: Vital Signs Temp 99.3 F 02/06/25 06:16 Pulse 108 H 02/06/25 00:42 Resp 20 02/06/25 00:42 BP 103/68 02/06/25 00:42 Pulse Ox 92 L 02/06/25 00:42 FiO2 Intake & Output 02/05/25 02/06/25 02/06/25 18:59 06:59 18:59 Intake Total 2160 780 Output Total 575 1600 Balance 1585 -820 Intake: Intake, IV Titration 2160 Amount Magnesium Sulfate-D5w Pmx 200 1 gm In Dextrose/Water 1 100ml.bag @ 100 mls/hr IVPB Q1H [facility] Rx#: [id number] Potassium Chloride 10 meq 400 In Water For Injection 1 100ml.bag @ 100 mls/hr IVPB Q1H [facility] Rx#: [id number] Sodium Chloride 0.9% 1, 1560 000 ml @ 130 mls/hr IV . Q7H42M [facility] Rx#:[id number] Oral 780 Output: Urine 575 1600 Other: Voiding Method External Catheter External Catheter - Exam In general patient is alert and oriented x 3 in no distress HEENT head normocephalic and atraumatic Neck is supple no JVD no goiter no lymphadenopathy no carotid bruit Chest examination reveals a scattered crackles bilaterally no wheezing Cardiac exam reveals regular heart sounds S1 and S2 no gallops no murmurs Abdomen is soft nontender no organomegaly with normal bowel sounds Extremity exam reveals no edema no cyanosis or clubbing, there is severe joint deformity in hands Neurological examination reveals no gross focal deficits - Labs CBC & Chem 7: 02/04/25 16:24 02/06/25 03:06 Labs: Abnormal Lab Results - Last 24 Hours (Table) 02/05/25 02/05/25 02/05/25 Range/Units 06:40 13:35 14:44 Potassium 3.0 L (3.5-5.1) mmol/L Magnesium 1.5 L (1.6-2.3) mg/dL Urine Protein 1+ H (Negative) Urine Ketones Trace H (Negative) Urine Blood Large H (Negative) Ur Leukocyte Esterase Large H (Negative) Urine RBC >182 H (0-5) /hpf Urine WBC >182 H (0-5) /hpf Urine Bacteria Occasional H (None) /hpf 02/05/25 Range/Units 19:43 Potassium 3.3 L (3.5-5.1) mmol/L Magnesium (1.6-2.3) mg/dL Urine Protein (Negative) Urine Ketones (Negative) Urine Blood (Negative) Ur Leukocyte Esterase (Negative) Urine RBC (0-5) /hpf Urine WBC (0-5) /hpf Urine Bacteria (None) /hpf Microbiology - Last 24 Hours (Table) 02/04/25 16:20 Blood Culture - Preliminary Blood Assessment and Plan Plan: Acute influenza A infection Dehydration with hypotension Severe electrolyte imbalance with hypokalemia and hypomagnesemia Acute mental status changes Recent history of common bile duct calculus Recent admission with urinary tract infection and sepsis Underlying history of physical debility, patient is bedridden Underlying history of anemia Underlying history of depression Underlying history of benign prostatic hypertrophy Underlying history of restless leg syndrome Remote history of vitamin D deficiency with history of rickets, with significant bone deformity. At this time patient was seen and examined Home medications reviewed and reordered He was started on IV antibiotics ceftriaxone in the emergency room, he was also started on oral Tamiflu Infectious disease consultation was requested Patient was started on IV fluid, and electrolyte correction protocols Prognosis is guarded Will obtain records from [facility] Will follow closely
[2025-02-06 07:39] LABS: AST 98 U/L (17-59); African American GFR (CKD) >90 (>60 ml/min/1.73 sqM); Albumin 1.9 g/dL (3.5-5.0); Albumin/Globulin Ratio 0.5; Alkaline Phosphatase 341 U/L (38-126); Anion Gap 10 mmol/L; Blood Urea Nitrogen <2 mg/dL (9-20); Calcium 6.8 mg/dL (8.4-10.2); Carbon Dioxide 20 mmol/L (22-30); Chloride 112 mmol/L (98-107); Globulin 4.1 g/dL; Glucose 118 mg/dL (74-99); Magnesium 1.9 mg/dL (1.6-2.3); Non-African American GFR(CKD) >90 (>60 ml/min/1.73 sqM); Sodium 142 mmol/L (137-145); Total Bilirubin 0.6 mg/dL (0.2-1.3)
[2025-02-06 07:48] LABS: ALT 44 U/L (4-49)
[2025-02-06] MEDS: ACETAMINOPHEN TAB 325 MG TAB PO PRN ×2 (09:00→21:16)
[2025-02-06] MEDS: FLUCONAZOLE 100 MG TAB PO SCH (09:04)
[2025-02-06] MEDS: PANTOPRAZOLE 40 MG TABLET PO SCH (09:04)
[2025-02-06] MEDS: FERROUS SULFATE 325 MG TAB PO SCH (09:06)
[2025-02-06] MEDS: bisacodyL 5 MG TABLET.DR PO SCH (09:06)
[2025-02-06] MEDS: ESCITALOPRAM 10 MG TAB PO SCH (09:06)
[2025-02-06] MEDS: OXYBUTYNIN XL 5 MG TAB.ER.24 PO SCH (09:06)
[2025-02-06 09:18] LABS: Basophils # (A) 0.03 X 10*3/uL (0.00-0.10); Basophils % (A) 0.3 %; Eosinophils # (A) 0.04 X 10*3/uL (0.04-0.35); Eosinophils % (A) 0.3 %; HCT 29.1 % (39.6-50.0); HGB 8.5 g/dL (13.0-17.0); Lymphocytes # (A) 1.99 X 10*3/uL (0.90-5.00); Lymphocytes % (A) 17.3 %; MCH 22.9 pg (27.0-32.0); MCHC 29.2 g/dL (32.0-37.0); MCV 78.4 FL (80.0-97.0); Mean Platelet Volume 10.8 FL (9.5-12.2); Monocytes # (A) 0.93 X 10*3/uL (0.20-1.00); Monocytes % (A) 8.1 %; NRBC Per 100 WBC 0 X 10*3/uL (0.00-0.01); Neutrophils # (A) 8.35 X 10*3/uL (1.80-7.70); Neutrophils % (A) 72.9 %; Platelet Count 168 X 10*3/uL (140-440); RBC 3.71 X 10*6/uL (4.40-5.60); RDW 21.9 % (11.5-14.5); WBC 11.47 X 10*3/uL (4.50-10.00)
[2025-02-06] MEDS: ALPRAZolam 0.25 MG TAB PO PRN (12:10)
--- NOTE | 2025-02-06 16:14 | P.PN ---
Subjective Progress Note Date: 02/06/25 Principal diagnosis: Reason for follow up with UTI and the acute influenza A Patient is a 49-year-old male with a past medical history pertinent for reflux, vitamin D deficiency rickets pending tissue disorder in this patient has been brought to the hospital concerning for mental status changes he tested positive for influenza and did have a positive UA. On today's evaluation that is 02/06/2025, Patient is afebrile patient is currently on room air and breathing comfortably no distress patient still not a very good historian no vomiting or diarrhea has been reported. Patient white count is 11.47 creatinine 0.44 cultures currently pending Objective - Vital Signs Vital signs: Vital Signs Temp 101.1 F H 02/06/25 07:29 Pulse 130 H 02/06/25 07:29 Resp 22 02/06/25 07:29 BP 112/71 02/06/25 07:29 Pulse Ox 90 L 02/06/25 07:29 FiO2 Intake & Output 02/05/25 02/06/25 02/06/25 18:59 06:59 18:59 Intake Total 2160 780 Output Total 575 1600 Balance 1585 -820 Intake: Intake, IV Titration 2160 Amount Magnesium Sulfate-D5w Pmx 200 1 gm In Dextrose/Water 1 100ml.bag @ 100 mls/hr IVPB Q1H [facility] Rx#: [id number] Potassium Chloride 10 meq 400 In Water For Injection 1 100ml.bag @ 100 mls/hr IVPB Q1H [facility] Rx#: [id number] Sodium Chloride 0.9% 1, 1560 000 ml @ 130 mls/hr IV . Q7H42M [facility] Rx#:[id number] Oral 780 Output: Urine 575 1600 Other: Voiding Method External Catheter External Catheter External Catheter - Exam GENERAL DESCRIPTION: Middle-age male lying in bed in no distress RESPIRATORY SYSTEM: Unlabored breathing , decreased breath sounds at bases HEART: S1 S2 regular rate and rhythm , ABDOMEN: Soft , no tenderness EXTREMITIES: No edema feet - Labs CBC & Chem 7: 02/06/25 03:06 02/06/25 06:48 Labs: Abnormal Lab Results - Last 24 Hours (Table) 02/05/25 02/06/25 02/06/25 Range/Units 19:43 03:06 06:48 WBC 11.47 H (4.50-10.00) X 10*3/uL RBC 3.71 L (4.40-5.60) X 10*6/uL Hgb 8.5 L (13.0-17.0) g/dL Hct 29.1 L (39.6-50.0) % MCV 78.4 L (80.0-97.0) FL MCH 22.9 L (27.0-32.0) pg MCHC 29.2 L (32.0-37.0) g/dL RDW 21.9 H (11.5-14.5) % Immature Gran # 0.13 H (0.00-0.04) X 10*3/uL Neutrophils # 8.35 H (1.80-7.70) X 10*3/uL Potassium 3.3 L (3.5-5.1) mmol/L Chloride 112 H (98-107) mmol/L Carbon Dioxide 20 L (22-30) mmol/L BUN <2 L (9-20) mg/dL Creatinine 0.44 L (0.66-1.25) mg/dL Glucose 118 H (74-99) mg/dL Calcium 6.8 L (8.4-10.2) mg/dL AST 98 H (17-59) U/L Alkaline Phosphatase 341 H (38-126) U/L Total Protein 6.0 L (6.3-8.2) g/dL Albumin 1.9 L (3.5-5.0) g/dL Microbiology - Last 24 Hours (Table) 02/04/25 16:20 Blood Culture - Preliminary Blood Assessment and Plan (1) Influenza A Current Visit: Yes Status: Acute Code(s): J10.1 - FLU DUE TO OTH IDENT INFLUENZA VIRUS W OTH RESP MANIFEST SNOMED Code(s): 656724308 (2) Urinary tract infection Current Visit: No Status: Acute Code(s): N39.0 - URINARY TRACT INFECTION, SITE NOT SPECIFIED SNOMED Code(s): 91157939 Plan: 1patient has been brought to the hospital for evaluation of mental status changes which is likely multifactorial in this patient who did tested positive for influenza A though chest x-ray did not show any evidence of pneumonia patient is currently breathing comfortably on room air and not behaving as a pneumonia, patient however did have significant positive UA with mental status changes concerning for symptomatic UTI likely from enteric gram-negative pa thogen 2-patient to continue with Tamiflu to finish a 5-day course of therapy 3-patient is currently on Rocephin 1 g daily while Waiting for urine culture to be finalized Dictation was produced using [employer] dictation software. please excuse any grammatical, word or spelling errors. Time with Patient: Less than 30
--- NOTE | 2025-02-06 17:06 | P.CNNES ---
History of Present Illness Consult date: 02/06/25 Reason for Consult: Mental status changes and involuntary movements History of Present Illness: The patient is a 49-year-old male who is seen in neurologic consultation on February 06, 2025, in collaboration with Kareen Franco, via teleneurology. History is obtained from the chart, as well as the nurse. The patient is unable to provide any history. Emergency department note reports that the patient was brought into the emergency department because of abnormal labs at the [facility] and mental status changes. The patient reportedly was recently discharged from [facility] following abdominal surgery and complication of sepsis. He was reportedly discharged home on IV antibiotics. Abnormal labs prompted referral to the emergency department. The patient lives in a [facility] because of cerebral palsy. At baseline, the patient is reportedly bedbound. An actual baseline mental status is not available at this time. In the emergency department, the patient was found to be positive for influenza A. Urinalysis revealed a severe urinary tract infection with urosepsis. According to the patient's nurse, she was given and reports that the patient frequently, at baseline has abnormal movements, consisting of jeanne of his muscles, primarily upper extremities. Review of Systems Unable to obtain secondary to mental status of patient Past Medical History Past Medical History: GERD/Reflux, Musculoskeletal Disorder, Osteoarthritis (OA), Skin Disorder Additional Past Medical History / Comment(s): poor hygiene, connective tissue disorder-unknown type per patient, vitamin D deficiency/Rickets, acute pancreatitis, cholelithiasis, psoriasis, deformities and contractures from rickets, flexion deformity, osteoarthritis, essential hypertension, major depressive disorder, iron deficiency anemia, non pressure chronic ulcer of skin, chronic idopathic constipation, hydronephrosis with renal and ureeral calculous, uti History of Any Multi-Drug Resistant Organisms: None Reported Date of last positivie culture/infection: 12/27/21 MDRO Source:: Urine Past Surgical History: Cholecystectomy Past Anesthesia/Blood Transfusion Reactions: No Reported Reaction Past Psychological History: Anxiety, Depression Additional Psychological History / Comment(s): Pt is bedbound. He lives at [facility] since 2016. Smoking Status: Never smoker Past Alcohol Use History: None Reported Past Drug Use History: None Reported - Past Family History Father Additional Family Medical History / Comment(s): bipolar Mother Family Medical History: COPD, Deep Vein Thrombosis (DVT), Hypertension Medications and Allergies Home Medications Medication Instructions Recorded Confirmed Type bisacodyL [Bisacodyl] 5 mg PO DAILY 09/03/21 02/04/25 History polyethylene glycoL 3350 [Miralax] 17 gm PO HS 12/23/22 02/04/25 History Oxybutynin Xl [Ditropan XL] 5 mg PO DAILY@0800 01/14/23 02/04/25 History Acetaminophen [Tylenol Arthritis] 650 mg PO Q6H PRN 02/24/23 02/04/25 History bisacodyL [Dulcolax] 10 mg RECTAL DAILY PRN 02/24/23 02/04/25 History ALPRAZolam [Xanax] 0.25 mg PO DAILY PRN 02/04/25 02/04/25 History ALPRAZolam [Xanax] 0.25 mg PO TUFR@0800 02/04/25 02/04/25 History Amino Acids/Protein Hydrolys 30 ml PO BID 02/04/25 02/04/25 History [Pro-Stat Awc Liquid] Apixaban [Eliquis] 2.5 mg PO BID 02/04/25 02/04/25 History Baclofen 10 mg PO TID@0800,1200,1800 02/04/25 02/04/25 History Ergocalciferol [Vitamin D2 (1250 1,250 mcg PO MO@0800 02/04/25 02/04/25 History Mcg = [id number] Iu)] Escitalopram [Lexapro] 10 mg PO DAILY 02/04/25 02/04/25 History Ferrous Sulfate [Feosol] 325 mg PO DAILY 02/04/25 02/04/25 History Fluconazole [Diflucan] 400 mg PO DAILY@0800 02/04/25 02/04/25 History Magic Cup 1 dose PO BID 02/04/25 02/04/25 History Menthol-Zinc Oxide Oint 1 applic TOPICAL QID 02/04/25 02/04/25 History [Calmoseptine Ointment] Metoprolol Tartrate [Lopressor] 25 mg PO BID 02/04/25 02/04/25 History Multivitamins, Thera [Multivitamin 1 tab PO HS 02/04/25 02/04/25 History (formulary)] Naloxone HCl [Narcan] 4 mg NASAL DIRECTED PRN 02/04/25 02/04/25 History Omeprazole 20 mg PO DAILY 02/04/25 02/04/25 History Ondansetron Odt [Zofran Odt] 4 mg PO Q6H PRN 02/04/25 02/04/25 History Potassium Chloride ER [K-Dur 20] 20 meq PO DAILY@0800 02/04/25 02/04/25 History Tamsulosin [Flomax] 0.4 mg PO DAILY 02/04/25 02/04/25 History cefTRIAXone [Rocephin] 1 gm IVPB HS@2300 02/04/25 02/04/25 History oxyCODONE HCL [OxyIR] 5 mg PO Q6H PRN 02/04/25 02/04/25 History rOPINIRole HCL [Requip XL] 2 mg PO HS 02/04/25 02/04/25 History Allergies Allergy/AdvReac Type Severity Reaction Status Date / Time lanolin Allergy Unknown Verified 02/04/25 18:28 Physical Examination - Vital Signs Vital Signs: Vital Signs Temp Pulse Pulse Pulse Resp BP Pulse Ox 02/06/25 07:29 101.1 F H 130 H 22 112/71 90 L 02/06/25 06:16 99.3 F 02/06/25 00:42 100.1 F H 108 H 20 103/68 92 L 02/05/25 21:40 113 H 02/05/25 19:24 98.5 F 99 20 121/73 92 L Intake and Output 02/06/25 02/06/25 02/06/25 06:59 14:59 22:59 Intake Total 780 Output Total 1600 Balance -820 Intake: Oral 780 Output: Urine 1600 Other: Voiding Method External Catheter General: The patient is reclining in the bed. He is in no acute distress. HEENT: Head is atraumatic, normocephalic. Fundus not visualized. There is no s cleral icterus. Mucous members are moist. Neck: Without carotid bruits Heart: Regular rate and rhythm Lungs: Essentially clear to auscultation Extremities: There are contractures of the bilateral upper extremities, right greater than left. There are deformities of the fingers. Bilateral feet and legs are edematous Neurological examination Mental status: The patient is awake. He is able to state his name. His speech is very dysarthric and difficult to understand. He follows intermittent ins tructions. Cranial nerves: Pupils are equal at 3 mm and reactive. The patient does blink to visual threat. Extraocular movements appear to be intact. There is no facial asymmetry. Hearing is grossly intact. Tongue protrudes midline. Motor: The patient is able to slightly move his bilateral upper extremities. He is unable to extend his elbows. There is some movement of the deltoid muscles. Lower extremities are unable to be moved. There is increased tone throughout. There is a contracture of the bilateral upper extremities, right greater than left Sensation: Grossly intact Deep tendon reflexes: Absent throughout Coordination: Unable to be assessed at this time Results - Laboratory Findings CBC and BMP: 02/06/25 03:06 02/06/25 06:48 Abnormal Lab Findings: Abnormal Labs 02/04/25 02/04/25 02/04/25 16:24 16:24 16:24 WBC RBC 4.22 L Hgb 9.7 L Hct 33.7 L MCV 79.8 L MCH 23.1 L MCHC 28.9 L RDW 19.3 H Plt Count 126 L Immature Gran # Neutrophils # PT 19.5 H INR 1.9 H APTT 30.5 H Potassium 2.3 L* Chloride Carbon Dioxide BUN 6 L Creatinine 0.49 L Glucose 104 H Calcium 7.0 L Magnesium AST 131 H Alkaline Phosphatase 325 H Total Protein 5.6 L Albumin 1.8 L Urine Protein Urine Ketones Urine Blood Ur Leukocyte Esterase Urine RBC Urine WBC Urine Bacteria Influenza Type A (PCR) 02/04/25 02/05/25 02/05/25 16:29 03:17 06:40 WBC RBC Hgb Hct MCV MCH MCHC RDW Plt Count Immature Gran # Neutrophils # PT INR APTT Potassium 2.5 L* Chloride 108 H Carbon Dioxide BUN 5 L Creatinine 0.47 L Glucose Calcium 7.1 L Magnesium 1.5 L AST 113 H Alkaline Phosphatase 325 H Total Protein 5.6 L Albumin 1.8 L Urine Protein Urine Ketones Urine Blood Ur Leukocyte Esterase Urine RBC Urine WBC Urine Bacteria Influenza Type A (PCR) Detected A 02/05/25 02/05/25 02/05/25 13:35 14:44 19:43 WBC RBC Hgb Hct MCV MCH MCHC RDW Plt Count Immature Gran # Neutrophils # PT INR APTT Potassium 3.0 L 3.3 L Chloride Carbon Dioxide BUN Creatinine Glucose Calcium Magnesium AST Alkaline Phosphatase Total Protein Albumin Urine Protein 1+ H Urine Ketones Trace H Urine Blood Large H Ur Leukocyte Esterase Large H Urine RBC >182 H Urine WBC >182 H Urine Bacteria Occasional H Influenza Type A (PCR) 02/06/25 02/06/25 03:06 06:48 WBC 11.47 H RBC 3.71 L Hgb 8.5 L Hct 29.1 L MCV 78.4 L MCH 22.9 L MCHC 29.2 L RDW 21.9 H Plt Count Immature Gran # 0.13 H Neutrophils # 8.35 H PT INR APTT Potassium Chloride 112 H Carbon Dioxide 20 L BUN <2 L Creatinine 0.44 L Glucose 118 H Calcium 6.8 L Magnesium AST 98 H Alkaline Phosphatase 341 H Total Protein 6.0 L Albumin 1.9 L Urine Protein Urine Ketones Urine Blood Ur Leukocyte Esterase Urine RBC Urine WBC Urine Bacteria Influenza Type A (PCR) Assessment and Plan Assessment: 1. Toxic metabolic encephalopathy secondary to urosepsis and influenza A 2. History of cerebral palsy 3. Recent history of abdominal surgery and sepsis 4. Vitamin D deficiency Plan: 1. Primary team to treat urosepsis and influenza A 2. No further neurologic intervention is needed at this time. Neurology will sign off. Please call with questions or concerns. Thank you for allowing us to participate in care of this patient Time with Patient: Greater than 30 (45 minutes were spent caring for this patient today including, obtaining a history, examining the patient, reviewing imaging, chart documentation, labs and creating this note)
[2025-02-07] MEDS: ERGOCALCIFEROL 1,250 MCG (50,000 IU) CAPSULE PO SCH (10:17)
[2025-02-07 10:31] LABS: ALT 36 U/L (10-49); AST 73 U/L (14-35); Albumin 1.4 g/dL (3.8-4.9); Albumin/Globulin Ratio 0.37 Ratio (1.60-3.17); Alkaline Phosphatase 225 U/L (41-126); BUN/Creat Ratio <8.75 Ratio (12.00-20.00); Blood Urea Nitrogen <3.5 mg/dL (9.0-27.0); Calcium 6.9 mg/dL (8.7-10.3); Carbon Dioxide 22.3 mmol/L (21.6-31.8); Chloride 119 mmol/L (96-109); Globulin 3.8 g/dL (1.6-3.3); Glucose 100 mg/dL (70-110); Potassium 3.6 mmol/L (3.5-5.5); Sodium 147 mmol/L (135-145); Total Bilirubin 0.5 mg/dL (0.3-1.2); Total Protein 5.2 g/dL (6.2-8.2)
[2025-02-07 11:23] LABS: Anisocytosis Moderate; Basophils # (A) 0.1 k/uL (0-0.2); Basophils % (A) 0 %; Eosinophils # (A) 0.1 k/uL (0-0.7); Eosinophils % (A) 1 %; HCT 31.8 % (39.0-53.0); Hypochromasia Marked; Lymphocytes # (A) 2.7 k/uL (1.0-4.8); Lymphocytes % (A) 18 %; MCH 23.5 pg (25.0-35.0); MCHC 28.2 g/dL (31.0-37.0); MCV 83.2 fL (80.0-100.0); Mean Platelet Volume 8.8; Microcytosis Slight; Monocytes # (A) 0.7 k/uL (0-1.0); Monocytes % (A) 5 %; Neutrophils # (A) 10.7 k/uL (1.3-7.7); Neutrophils % (A) 73 %; Platelet Count 219 k/uL (150-450); RBC 3.82 m/uL (4.30-5.90); RDW 20.6 % (11.5-15.5); WBC 14.6 k/uL (3.8-10.6)
--- NOTE | 2025-02-07 17:32 | P.PN ---
Subjective Progress Note Date: 02/07/25 Principal diagnosis: Reason for follow up with UTI and the acute influenza A Patient is a 49-year-old male with a past medical history pertinent for reflux, vitamin D deficiency rickets pending tissue disorder in this patient has been brought to the hospital concerning for mental status changes he tested positive for influenza and did have a positive UA. On today's evaluation that is 02/07/2025, patient has been afebrile, patient is breathing comfortably and is currently on room air, patient seem to be slightly more awake today but elevated good historian no vomiting diarrhea and the changes reported by the nursing staff. Patient white count is up to 14.6, creatinine 0.4 urine is growing gram-negative blood cultures are pending Objective - Vital Signs Vital signs: Vital Signs Temp 97.1 F L 02/07/25 07:59 Pulse 72 02/07/25 08:00 Resp 18 02/07/25 08:00 BP 106/72 02/07/25 07:59 Pulse Ox 92 L 02/07/25 07:59 FiO2 Intake & Output 02/06/25 02/07/25 02/07/25 18:59 06:59 18:59 Output Total 825 475 Balance -825 -475 Output: Urine 825 475 Other: Voiding Method External Catheter External Catheter External Catheter # Bowel Movements 1 1 - Exam GENERAL DESCRIPTION: Middle-age male lying in bed in no distress RESPIRATORY SYSTEM: Unlabored breathing , decreased breath sounds at bases HEART: S1 S2 regular rate and rhythm , ABDOMEN: Soft , no tenderness EXTREMITIES: No edema feet - Labs CBC & Chem 7: 02/07/25 11:03 02/07/25 07:09 Labs: Abnormal Lab Results - Last 24 Hours (Table) 02/07/25 02/07/25 Range/Units 07:09 11:03 WBC 14.6 H (3.8-10.6) k/uL RBC 3.82 L (4.30-5.90) m/uL Hgb 9.0 L (13.0-17.5) gm/dL Hct 31.8 L (39.0-53.0) % MCH 23.5 L (25.0-35.0) pg MCHC 28.2 L (31.0-37.0) g/dL RDW 20.6 H (11.5-15.5) % Neutrophils # 10.7 H (1.3-7.7) k/uL Sodium 147 H (135-145) mmol/L Chloride 119 H (96-109) mmol/L BUN <3.5 L (9.0-27.0) mg/dL Creatinine 0.4 L (0.6-1.5) mg/dL BUN/Creatinine Ratio <8.75 L (12.00-20.00) Ratio Calcium 6.9 L (8.7-10.3) mg/dL AST 73 H (14-35) U/L Alkaline Phosphatase 225 H (41-126) U/L Total Protein 5.2 L (6.2-8.2) g/dL Albumin 1.4 L (3.8-4.9) g/dL Globulin 3.8 H (1.6-3.3) g/dL Albumin/Globulin Ratio 0.37 L (1.60-3.17) Ratio Microbiology - Last 24 Hours (Table) 02/05/25 13:35 Urine Culture - Preliminary Urine,Voided Gram Neg Bacilli 02/04/25 16:20 Blood Culture - Preliminary Blood Assessment and Plan (1) Influenza A Current Visit: Yes Status: Acute Code(s): J10.1 - FLU DUE TO OTH IDENT INFLUENZA VIRUS W OTH RESP MANIFEST SNOMED Code(s): 344234287 (2) Urinary tract infection Current Visit: No Status: Acute Code(s): N39.0 - URINARY TRACT INFECTION, SITE NOT SPECIFIED SNOMED Code(s): 34520805 Plan: 1patient has been brought to the hospital for evaluation of mental status changes which is likely multifactorial in this patient who did tested positive for influenza A though chest x-ray did not show any evidence of pneumonia patient is currently breathing comfortably on room air and not behaving as a pneumonia, patient however did have significant positive UA with mental status changes concerning for symptomatic UTI likely from enteric gram-negative pathogen 2-patient to continue with Tamiflu to finish a 5-day course of therapy 3-patient did have slight worsening of the white count need to monitor his white count closely we will wait for the urine culture finalized for now continue with Rocephin Dictation was produced using [employer] dictation software. please excuse any grammatical, word or spelling errors. Time with Patient: Less than 30
--- NOTE | 2025-02-07 17:53 | P.PN ---
Subjective Progress Note Date: 02/07/25 Yaakov Mora, is a 49-year-old male, resident of a shelter, who presented to [facility] emergency room with a chief complaint of mental status changes, he was recently admitted to [facility] with urinary tract infection and sepsis, he returned to [facility], however he started having worsening mental status changes with hallucinations, chest x-ray done in the emergency room revealed evidence of bilateral infiltrates suggestive of pneumonia, he also had severe electrolyte imbalance with potassium of 2.3 and low magnesium, he was transferred to [facility] emergency room for further evaluation and treatment. He was evaluated in the emergency room vital examination on presentation revealed a temperature of 97.4 pulse 70 respiration 18 blood pressure 89/52 pulse ox 93% on room air Laboratory data revealed a white blood count of 8.5 hemoglobin 9.7 platelet count 126 sodium 140 potassium 2.3 BUN 6 creatinine 0.49 AST 131 alkaline p hosphatase 325, influenza A PCR was positive, magnesium 1.5 Testing in the emergency room revealed, chest x-ray revealed right-sided PICC line with distal tip at the cavoatrial junction, low lung volumes without definitive airspace disease. Patient was admitted to medical floor for further evaluation and treatment On 02/06/2025 patient was seen and examined on the medical floor, initially patient was unresponsive, and having some shaking movement in extremities, subsequently patient was more alert responsive, confused in no apparent distress. His vital exam revealed a temperature of 100.1 pulse 108 respiration 20 blood pressure 103/68 pulse ox 92% on room air, labs are still pending potassium is up to 3.5 On 02/07/2025 patient was seen and examined on the medical floor he is alert and oriented in no apparent distress his mental status has improved significantly there is no fever or chills no headache or dizziness no chest pain no shortness of breath no cough no nausea or vomiting no abdominal pain no diarrhea and no urinary symptoms. Input from neurology reviewed. Infectious disease following Objective - Vital Signs Vital signs: Vital Signs Temp 97.4 F L 02/07/25 14:00 Pulse 63 02/07/25 14:00 Resp 18 02/07/25 14:00 BP 99/63 02/07/25 14:00 Pulse Ox 91 L 02/07/25 14:00 FiO2 Intake & Output 02/06/25 02/07/25 02/07/25 18:59 06:59 18:59 Output Total 825 475 Balance -825 -475 Output: Urine 825 475 Other: Voiding Method External Catheter External Catheter External Catheter # Bowel Movements 1 1 - Exam In general patient is alert and oriented x 3 in no distress HEENT head normocephalic and atraumatic Neck is supple no JVD no goiter no lymphadenopathy no carotid bruit Chest examination reveals a scattered crackles bilaterally no wheezing Cardiac exam reveals regular heart sounds S1 and S2 no gallops no murmurs Abdomen is soft nontender no organomegaly with normal bowel sounds Extremity exam reveals no edema no cyanosis or clubbing, there is severe joint deformity in hands Neurological examination reveals no gross focal deficits - Labs CBC & Chem 7: 02/07/25 11:03 02/07/25 07:09 Labs: Abnormal Lab Results - Last 24 Hours (Table) 02/07/25 02/07/25 Range/Units 07:09 11:03 WBC 14.6 H (3.8-10.6) k/uL RBC 3.82 L (4.30-5.90) m/uL Hgb 9.0 L (13.0-17.5) gm/dL Hct 31.8 L (39.0-53.0) % MCH 23.5 L (25.0-35.0) pg MCHC 28.2 L (31.0-37.0) g/dL RDW 20.6 H (11.5-15.5) % Neutrophils # 10.7 H (1.3-7.7) k/uL Sodium 147 H (135-145) mmol/L Chloride 119 H (96-109) mmol/L BUN <3.5 L (9.0-27.0) mg/dL Creatinine 0.4 L (0.6-1.5) mg/dL BUN/Creatinine Ratio <8.75 L (12.00-20.00) Ratio Calcium 6.9 L (8.7-10.3) mg/dL AST 73 H (14-35) U/L Alkaline Phosphatase 225 H (41-126) U/L Total Protein 5.2 L (6.2-8.2) g/dL Albumin 1.4 L (3.8-4.9) g/dL Globulin 3.8 H (1.6-3.3) g/dL Albumin/Globulin Ratio 0.37 L (1.60-3.17) Ratio Microbiology - Last 24 Hours (Table) 02/05/25 13:35 Urine Culture - Preliminary Urine,Voided Gram Neg Bacilli 02/04/25 16:20 Blood Culture - Preliminary Blood Assessment and Plan Plan: Acute influenza A infection Dehydration with hypotension Severe electrolyte imbalance with hypokalemia and hypomagnesemia Acute mental status changes Recent history of common bile duct calculus Recent admission with urinary tract infection and sepsis Underlying history of physical debility, patient is bedridden Underlying history of anemia Underlying history of depression Underlying history of benign prostatic hypertrophy Underlying history of restless leg syndrome Remote history of vitamin D deficiency with history of rickets, with significant bone deformity. At this time patient was seen and examined Home medications reviewed and reordered He was started on IV antibiotics ceftriaxone in the emergency room, he was also started on oral Tamiflu Infectious disease consultation was requested Patient was started on IV fluid, and electrolyte correction protocols Prognosis is guarded Will obtain records from [facility] Will follow closely
[2025-02-08] MEDS: ALPRAZolam 0.25 MG TAB PO SCH (08:22)
[2025-02-08 09:39] LABS: HCT 31.1 % (39.6-50.0); MCH 23.5 pg (27.0-32.0); MCHC 28.9 g/dL (32.0-37.0); MCV 81.2 FL (80.0-97.0); Mean Platelet Volume 11.5 FL (9.5-12.2); NRBC Per 100 WBC 0.02 X 10*3/uL (0.00-0.01); Platelet Count 148 X 10*3/uL (140-440); RBC 3.83 X 10*6/uL (4.40-5.60); RDW 23.6 % (11.5-14.5)
[2025-02-08 09:55] LABS: ALT 37 U/L (10-49); AST 80 U/L (14-35); Albumin 1.4 g/dL (3.8-4.9); Albumin/Globulin Ratio 0.34 Ratio (1.60-3.17); Alkaline Phosphatase 242 U/L (41-126); BUN/Creat Ratio <5.83 Ratio (12.00-20.00); Blood Urea Nitrogen <3.5 mg/dL (9.0-27.0); Calcium 7.1 mg/dL (8.7-10.3); Carbon Dioxide 20.8 mmol/L (21.6-31.8); Chloride 118 mmol/L (96-109); Globulin 4.1 g/dL (1.6-3.3); Glucose 93 mg/dL (70-110); Potassium 3.9 mmol/L (3.5-5.5); Sodium 147 mmol/L (135-145); Total Bilirubin 0.3 mg/dL (0.3-1.2); Total Protein 5.5 g/dL (6.2-8.2)
[2025-02-08 10:55] LABS: Basophils # (A) 0.05 X 10*3/uL (0.00-0.10); Basophils % (A) 0.4 %; Eosinophils # (A) 0.09 X 10*3/uL (0.04-0.35); Eosinophils % (A) 0.8 %; Lymphocytes # (A) 2.43 X 10*3/uL (0.90-5.00); Lymphocytes % (A) 21.7 %; Monocytes # (A) 0.89 X 10*3/uL (0.20-1.00); Monocytes % (A) 7.9 %; Neutrophils # (A) 7.59 X 10*3/uL (1.80-7.70); Neutrophils % (A) 67.9 %; Target Cells 2+ (None Seen)
--- NOTE | 2025-02-08 14:25 | P.PN ---
Subjective Progress Note Date: 02/08/25 Principal diagnosis: Reason for follow up with UTI and the acute influenza A Patient is a 49-year-old male with a past medical history pertinent for reflux, vitamin D deficiency rickets pending tissue disorder in this patient has been brought to the hospital concerning for mental status changes he tested positive for influenza and did have a positive UA. On today's evaluation that is 02/08/2025, Patient is afebrile this morning patient on room air no distress seen to be slightly more awake but not very good historian no vomiting diarrhea no change reported. The patient white count is 11.20 creatinine 0.6 urine is growing Pseudomonas is breathing comfortably Objective - Vital Signs Vital signs: Vital Signs Temp 98.7 F 02/07/25 20:14 Pulse 63 02/08/25 07:46 Resp 17 02/08/25 07:46 BP 97/61 02/08/25 07:08 Pulse Ox 91 L 02/08/25 07:08 FiO2 Intake & Output 02/07/25 02/08/25 02/08/25 18:59 06:59 18:59 Output Total 600 Balance -600 Output: Urine 600 Other: Voiding Method External Catheter Diaper Diaper # Voids 2 # Bowel Movements 1 1 - Exam GENERAL DESCRIPTION: Middle-age male lying in bed in no distress RESPIRATORY SYSTEM: Unlabored breathing , decreased breath sounds at bases HEART: S1 S2 regular rate and rhythm , ABDOMEN: Soft , no tenderness EXTREMITIES: No edema feet - Labs CBC & Chem 7: 02/08/25 06:18 02/08/25 06:18 Labs: Abnormal Lab Results - Last 24 Hours (Table) 02/08/25 02/08/25 Range/Units 06:18 06:18 WBC 11.20 H (4.50-10.00) X 10*3/uL RBC 3.83 L (4.40-5.60) X 10*6/uL Hgb 9.0 L (13.0-17.0) g/dL Hct 31.1 L (39.6-50.0) % MCH 23.5 L (27.0-32.0) pg MCHC 28.9 L (32.0-37.0) g/dL RDW 23.6 H (11.5-14.5) % Immature Gran # 0.15 H (0.00-0.04) X 10*3/uL NRBC/100 WBC Diff 0.02 H (0.00-0.01) X 10*3/uL Target Cells 2+ A (None Seen) Sodium 147 H (135-145) mmol/L Chloride 118 H (96-109) mmol/L Carbon Dioxide 20.8 L (21.6-31.8) mmol/L BUN <3.5 L (9.0-27.0) mg/dL BUN/Creatinine Ratio <5.83 L (12.00-20.00) Ratio Calcium 7.1 L (8.7-10.3) mg/dL AST 80 H (14-35) U/L Alkaline Phosphatase 242 H (41-126) U/L Total Protein 5.5 L (6.2-8.2) g/dL Albumin 1.4 L (3.8-4.9) g/dL Globulin 4.1 H (1.6-3.3) g/dL Albumin/Globulin Ratio 0.34 L (1.60-3.17) Ratio Microbiology - Last 24 Hours (Table) 02/05/25 13:35 Urine Culture - Final Urine,Voided Pseudomonas aeruginosa 02/04/25 16:20 Blood Culture - Preliminary Blood Assessment and Plan (1) Influenza A Current Visit: Yes Status: Acute Code(s): J10.1 - FLU DUE TO OTH IDENT INFLUENZA VIRUS W OTH RESP MANIFEST SNOMED Code(s): 881602540 (2) Urinary tract infection Current Visit: No Status: Acute Code(s): N39.0 - URINARY TRACT INFECTION, SITE NOT SPECIFIED SNOMED Code(s): 34876692 Plan: 1patient has been brought to the hospital for evaluation of mental status changes which is likely multifactorial in this patient who did tested positive for influenza A though chest x-ray did not show any evidence of pneumonia patient is currently breathing comfortably on room air and not behaving as a pneumonia, patient however did have significant positive UA with mental status changes concerning for symptomatic UTI likely from enteric gram-negative pathogen 2-patient to continue with Tamiflu to finish a 5-day course of therapy 3-patient urine culture is growing Pseudomonas aeruginosa we will start the patient on cefepime and monitor clinical course closely Dictation was produced using [employer] software. please excuse any grammatical, word or spelling errors. Time with Patient: Less than 30
--- NOTE | 2025-02-08 16:56 | P.PN ---
Subjective Progress Note Date: 02/08/25 Yaakov Mora, is a 49-year-old male, resident of a care home, who presented to [facility] emergency room with a chief complaint of mental status changes, he was recently admitted to [facility] with urinary tract infection and sepsis, he returned to [facility], however he started having worsening mental status changes with hallucinations, chest x-ray done in the emergency room revealed evidence of bilateral infiltrates suggestive of pneumonia, he also had severe electrolyte imbalance with potassium of 2.3 and low magnesium, he was transferred to [facility] emergency room for further evaluation and treatment. He was evaluated in the emergency room vital examination on presentation revealed a temperature of 97.4 pulse 70 respiration 18 blood pressure 89/52 pulse ox 93% on room air Laboratory data revealed a white blood count of 8.5 hemoglobin 9.7 platelet count 126 sodium 140 potassium 2.3 BUN 6 creatinine 0.49 AST 131 alkaline p hosphatase 325, influenza A PCR was positive, magnesium 1.5 Testing in the emergency room revealed, chest x-ray revealed right-sided PICC line with distal tip at the cavoatrial junction, low lung volumes without definitive airspace disease. Patient was admitted to medical floor for further evaluation and treatment On 02/06/2025 patient was seen and examined on the medical floor, initially patient was unresponsive, and having some shaking movement in extremities, subsequently patient was more alert responsive, confused in no apparent distress. His vital exam revealed a temperature of 100.1 pulse 108 respiration 20 blood pressure 103/68 pulse ox 92% on room air, labs are still pending potassium is up to 3.5 On 02/07/2025 patient was seen and examined on the medical floor he is alert and oriented in no apparent distress his mental status has improved significantly there is no fever or chills no headache or dizziness no chest pain no shortness of breath no cough no nausea or vomiting no abdominal pain no diarrhea and no urinary symptoms. Input from neurology reviewed. Infectious disease following On 02/08/2025 patient was seen and examined on the medical floor he is alert and oriented in no apparent distress there is no fever or chills no headache or dizziness no chest pain no shortness of breath no cough no nausea or vomiting no abdominal pain no diarrhea and no urinary symptoms. Currently he is maintained on cefepime, infectious disease are following Objective - Vital Signs Vital signs: Vital Signs Temp 98.7 F 02/07/25 20:14 Pulse 63 02/08/25 07:46 Resp 17 02/08/25 07:46 BP 97/61 02/08/25 07:08 Pulse Ox 91 L 02/08/25 07:08 FiO2 Intake & Output 02/07/25 02/08/25 02/08/25 18:59 06:59 18:59 Output Total 600 Balance -600 Output: Urine 600 Other: Voiding Method External Catheter Diaper Diaper # Voids 2 # Bowel Movements 1 1 - Exam In general patient is alert and oriented x 3 in no distress HEENT head normocephalic and atraumatic Neck is supple no JVD no goiter no lymphadenopathy no carotid bruit Chest examination reveals a scattered crackles bilaterally no wheezing Cardiac exam reveals regular heart sounds S1 and S2 no gallops no murmurs Abdomen is soft nontender no organomegaly with normal bowel sounds Extremity exam reveals no edema no cyanosis or clubbing, there is severe joint d eformity in hands Neurological examination reveals no gross focal deficits - Labs CBC & Chem 7: 02/08/25 06:18 02/08/25 06:18 Labs: Abnormal Lab Results - Last 24 Hours (Table) 02/07/25 02/07/25 Range/Units 07:09 11:03 WBC 14.6 H (3.8-10.6) k/uL RBC 3.82 L (4.30-5.90) m/uL Hgb 9.0 L (13.0-17.5) gm/dL Hct 31.8 L (39.0-53.0) % MCH 23.5 L (25.0-35.0) pg MCHC 28.2 L (31.0-37.0) g/dL RDW 20.6 H (11.5-15.5) % Neutrophils # 10.7 H (1.3-7.7) k/uL Sodium 147 H (135-145) mmol/L Chloride 119 H (96-109) mmol/L BUN <3.5 L (9.0-27.0) mg/dL Creatinine 0.4 L (0.6-1.5) mg/dL BUN/Creatinine Ratio <8.75 L (12.00-20.00) Ratio Calcium 6.9 L (8.7-10.3) mg/dL AST 73 H (14-35) U/L Alkaline Phosphatase 225 H (41-126) U/L Total Protein 5.2 L (6.2-8.2) g/dL Albumin 1.4 L (3.8-4.9) g/dL Globulin 3.8 H (1.6-3.3) g/dL Albumin/Globulin Ratio 0.37 L (1.60-3.17) Ratio Microbiology - Last 24 Hours (Table) 02/04/25 16:20 Blood Culture - Preliminary Blood 02/05/25 13:35 Urine Culture - Preliminary Urine,Voided Gram Neg Bacilli Assessment and Plan Plan: Acute influenza A infection Dehydration with hypotension Severe electrolyte imbalance with hypokalemia and hypomagnesemia Acute mental status changes Recent history of common bile duct calculus Recent admission with urinary tract infection and sepsis Underlying history of physical debility, patient is bedridden Underlying history of anemia Underlying history of depression Underlying history of benign prostatic hypertrophy Underlying history of restless leg syndrome Remote history of vitamin D deficiency with history of rickets, with significant bone deformity. At this time patient was seen and examined Home medications reviewed and reordered He was started on IV antibiotics ceftriaxone in the emergency room, he was also started on oral Tamiflu Infectious disease consultation was requested Patient was started on IV fluid, and electrolyte correction protocols Prognosis is guarded Will obtain records from [facility] Will follow closely
[2025-02-08] MEDS: SODIUM CHLORIDE 0.45% 1,000 ML IV SCH (17:46)
[2025-02-08] MEDS: CEFEPIME 2 GM in SODIUM CHLORIDE 0.9% 100 ML IVPB SCH (17:47)
[2025-02-09 10:40] LABS: ALT 36 U/L (10-49); AST 67 U/L (14-35); Albumin 1.4 g/dL (3.8-4.9); Albumin/Globulin Ratio 0.34 Ratio (1.60-3.17); Alkaline Phosphatase 245 U/L (41-126); BUN/Creat Ratio <5.83 Ratio (12.00-20.00); Blood Urea Nitrogen <3.5 mg/dL (9.0-27.0); Carbon Dioxide 21.5 mmol/L (21.6-31.8); Chloride 116 mmol/L (96-109); Globulin 4.1 g/dL (1.6-3.3); Glucose 119 mg/dL (70-110); Potassium 3.1 mmol/L (3.5-5.5); Sodium 146 mmol/L (135-145); Total Bilirubin 0.4 mg/dL (0.3-1.2); Total Protein 5.5 g/dL (6.2-8.2)
[2025-02-09 11:21] LABS: Basophils # (A) 0.06 X 10*3/uL (0.00-0.10); Basophils % (A) 0.5 %; Eosinophils # (A) 0.13 X 10*3/uL (0.04-0.35); HCT 30.5 % (39.6-50.0); HGB 8.5 g/dL (13.0-17.0); Lymphocytes # (A) 2.75 X 10*3/uL (0.90-5.00); Lymphocytes % (A) 22.2 %; MCH 23.3 pg (27.0-32.0); MCHC 27.9 g/dL (32.0-37.0); MCV 83.6 FL (80.0-97.0); Mean Platelet Volume 10.5 FL (9.5-12.2); Monocytes # (A) 1.05 X 10*3/uL (0.20-1.00); Monocytes % (A) 8.5 %; NRBC Per 100 WBC 0.03 X 10*3/uL (0.00-0.01); Neutrophils # (A) 8.18 X 10*3/uL (1.80-7.70); Neutrophils % (A) 65.9 %; Platelet Count 227 X 10*3/uL (140-440); RBC 3.65 X 10*6/uL (4.40-5.60); RDW 24.4 % (11.5-14.5)
[2025-02-09] MEDS: POTASSIUM CHLORIDE ER 20 MEQ TAB.ER PO SCH (13:06)
[2025-02-09] MEDS ORDERED: Potassium Replacement Protocol 1 EACH MISC MISCELLANE PRN (16:20)
--- NOTE | 2025-02-09 16:35 | P.PN ---
Subjective Progress Note Date: 02/09/25 Yaakov Mora, is a 49-year-old male, resident of a fpc, who presented to [facility] emergency room with a chief complaint of mental status changes, he was recently admitted to [facility] with urinary tract infection and sepsis, he returned to [facility], however he started having worsening mental status changes with hallucinations, chest x-ray done in the emergency room revealed evidence of bilateral infiltrates suggestive of pneumonia, he also had severe electrolyte imbalance with potassium of 2.3 and low magnesium, he was transferred to [facility] emergency room for further evaluation and treatment. He was evaluated in the emergency room vital examination on presentation revealed a temperature of 97.4 pulse 70 respiration 18 blood pressure 89/52 pulse ox 93% on room air Laboratory data revealed a white blood count of 8.5 hemoglobin 9.7 platelet count 126 sodium 140 potassium 2.3 BUN 6 creatinine 0.49 AST 131 alkaline p hosphatase 325, influenza A PCR was positive, magnesium 1.5 Testing in the emergency room revealed, chest x-ray revealed right-sided PICC line with distal tip at the cavoatrial junction, low lung volumes without definitive airspace disease. Patient was admitted to medical floor for further evaluation and treatment On 02/06/2025 patient was seen and examined on the medical floor, initially patient was unresponsive, and having some shaking movement in extremities, subsequently patient was more alert responsive, confused in no apparent distress. His vital exam revealed a temperature of 100.1 pulse 108 respiration 20 blood pressure 103/68 pulse ox 92% on room air, labs are still pending potassium is up to 3.5 On 02/07/2025 patient was seen and examined on the medical floor he is alert and oriented in no apparent distress his mental status has improved significantly there is no fever or chills no headache or dizziness no chest pain no shortness of breath no cough no nausea or vomiting no abdominal pain no diarrhea and no urinary symptoms. Input from neurology reviewed. Infectious disease following On 02/08/2025 patient was seen and examined on the medical floor he is alert and oriented in no apparent distress there is no fever or chills no headache or dizziness no chest pain no shortness of breath no cough no nausea or vomiting no abdominal pain no diarrhea and no urinary symptoms. Currently he is maintained on cefepime, infectious disease are following On 02/09/2025 patient was seen and examined on the medical floor he is alert and oriented x 3 in no distress, he denies any symptoms at this time there is no fever or chills no headache or dizziness no chest pain no shortness of breath no cough no nausea or vomiting no abdominal pain no diarrhea and no urinary symptoms, his temperature is 98.4 pulse 87 respiration 18 blood pressure 94/68 pulse ox 95% on room air white blood count is 12.4 hemoglobin 8.5 platelet count 227 sodium 146 potassium 3.1 chloride 116 BUN 3.5 creatinine 0.6 patient remains on IV cefepime infectious disease following Objective - Vital Signs Vital signs: Vital Signs Temp 98.4 F 02/09/25 15:16 Pulse 87 02/09/25 15:16 Resp 18 02/09/25 15:16 BP 94/68 02/09/25 15:16 Pulse Ox 95 02/09/25 15:16 FiO2 Intake & Output 02/08/25 02/09/25 02/09/25 18:59 06:59 18:59 Other: Voiding Method Diaper Diaper Diaper # Voids 3 4 1 # Bowel Movements 2 2 1 - Exam In general patient is alert and oriented x 3 in no distress HEENT head normocephalic and atraumatic Neck is supple no JVD no goiter no lymphadenopathy no carotid bruit Chest examination reveals a scattered crackles bilaterally no wheezing Cardiac exam reveals regular heart sounds S1 and S2 no gallops no murmurs Abdomen is soft nontender no organomegaly with normal bowel sounds Extremity exam reveals no edema no cyanosis or clubbing, there is severe joint deformity in hands Neurological examination reveals no gross focal deficits - Labs CBC & Chem 7: 02/09/25 06:58 02/09/25 06:58 Labs: Abnormal Lab Results - Last 24 Hours (Table) 02/09/25 02/09/25 Range/Units 06:58 06:58 WBC 12.40 H (4.50-10.00) X 10*3/uL RBC 3.65 L (4.40-5.60) X 10*6/uL Hgb 8.5 L (13.0-17.0) g/dL Hct 30.5 L (39.6-50.0) % MCH 23.3 L (27.0-32.0) pg MCHC 27.9 L (32.0-37.0) g/dL RDW 24.4 H (11.5-14.5) % Immature Gran # 0.23 H (0.00-0.04) X 10*3/uL Neutrophils # 8.18 H (1.80-7.70) X 10*3/uL Monocytes # 1.05 H (0.20-1.00) X 10*3/uL NRBC/100 WBC Diff 0.03 H (0.00-0.01) X 10*3/uL Sodium 146 H (135-145) mmol/L Potassium 3.1 L (3.5-5.5) mmol/L Chloride 116 H (96-109) mmol/L Carbon Dioxide 21.5 L (21.6-31.8) mmol/L BUN <3.5 L (9.0-27.0) mg/dL BUN/Creatinine Ratio <5.83 L (12.00-20.00) Ratio Glucose 119 H (70-110) mg/dL Calcium 7.0 L (8.7-10.3) mg/dL AST 67 H (14-35) U/L Alkaline Phosphatase 245 H (41-126) U/L Total Protein 5.5 L (6.2-8.2) g/dL Albumin 1.4 L (3.8-4.9) g/dL Globulin 4.1 H (1.6-3.3) g/dL Albumin/Globulin Ratio 0.34 L (1.60-3.17) Ratio Assessment and Plan Plan: Acute influenza A infection Dehydration with hypotension Severe electrolyte imbalance with hypokalemia and hypomagnesemia Acute mental status changes Recent history of common bile duct calculus Recent admission with urinary tract infection and sepsis Underlying history of physical debility, patient is bedridden Underlying history of anemia Underlying history of depression Underlying history of benign prostatic hypertrophy Underlying history of restless leg syndrome Remote history of vitamin D deficiency with history of rickets, with significant bone deformity. At this time patient was seen and examined Home medications reviewed and reordered He was started on IV antibiotics ceftriaxone in the emergency room, he was also started on oral Tamiflu Infectious disease consultation was requested Patient was started on IV fluid, and electrolyte correction protocols Prognosis is guarded Will obtain records from [facility] Will follow closely
--- NOTE | 2025-02-09 17:29 | P.PN ---
Subjective Progress Note Date: 02/09/25 Principal diagnosis: Reason for follow up with UTI and the acute influenza A Patient is a 49-year-old male with a past medical history pertinent for reflux, vitamin D deficiency rickets pending tissue disorder in this patient has been brought to the hospital concerning for mental status changes he tested positive for influenza and did have a positive UA. On today's evaluation that is 02/09/2025,the patient remains to be afebrile patient is breathing comfortably room air in no distress sleeping elevated good historian no vomiting diarrhea and the change reported by the nursing staff. Patient white count is 12.40, creatinine 0.6 urine with Pseudomonas blood cultu re negative Objective - Vital Signs Vital signs: Vital Signs Temp 97.6 F 02/09/25 08:44 Pulse 73 02/09/25 08:44 Resp 17 02/09/25 08:44 BP 110/74 02/09/25 08:44 Pulse Ox 94 L 02/09/25 08:44 FiO2 Intake & Output 02/08/25 02/09/25 02/09/25 18:59 06:59 18:59 Other: Voiding Method Diaper Diaper Diaper # Voids 3 4 1 # Bowel Movements 2 2 1 - Exam GENERAL DESCRIPTION: Middle-age male lying in bed in no distress RESPIRATORY SYSTEM: Unlabored breathing , decreased breath sounds at bases HEART: S1 S2 regular rate and rhythm , ABDOMEN: Soft , no tenderness EXTREMITIES: No edema feet - Labs CBC & Chem 7: 02/09/25 06:58 02/09/25 06:58 Labs: Abnormal Lab Results - Last 24 Hours (Table) 02/09/25 02/09/25 Range/Units 06:58 06:58 WBC 12.40 H (4.50-10.00) X 10*3/uL RBC 3.65 L (4.40-5.60) X 10*6/uL Hgb 8.5 L (13.0-17.0) g/dL Hct 30.5 L (39.6-50.0) % MCH 23.3 L (27.0-32.0) pg MCHC 27.9 L (32.0-37.0) g/dL RDW 24.4 H (11.5-14.5) % Immature Gran # 0.23 H (0.00-0.04) X 10*3/uL Neutrophils # 8.18 H (1.80-7.70) X 10*3/uL Monocytes # 1.05 H (0.20-1.00) X 10*3/uL NRBC/100 WBC Diff 0.03 H (0.00-0.01) X 10*3/uL Sodium 146 H (135-145) mmol/L Potassium 3.1 L (3.5-5.5) mmol/L Chloride 116 H (96-109) mmol/L Carbon Dioxide 21.5 L (21.6-31.8) mmol/L BUN <3.5 L (9.0-27.0) mg/dL BUN/Creatinine Ratio <5.83 L (12.00-20.00) Ratio Glucose 119 H (70-110) mg/dL Calcium 7.0 L (8.7-10.3) mg/dL AST 67 H (14-35) U/L Alkaline Phosphatase 245 H (41-126) U/L Total Protein 5.5 L (6.2-8.2) g/dL Albumin 1.4 L (3.8-4.9) g/dL Globulin 4.1 H (1.6-3.3) g/dL Albumin/Globulin Ratio 0.34 L (1.60-3.17) Ratio Microbiology - Last 24 Hours (Table) 02/05/25 13:35 Urine Culture - Final Urine,Voided Pseudomonas aeruginosa Assessment and Plan (1) Influenza A Current Visit: Yes Status: Acute Code(s): J10.1 - FLU DUE TO OTH IDENT INFLUENZA VIRUS W OTH RESP MANIFEST SNOMED Code(s): 963394569 (2) Urinary tract infection Current Visit: No Status: Acute Code(s): N39.0 - URINARY TRACT INFECTION, SITE NOT SPECIFIED SNOMED Code(s): 07153731 Plan: 1patient has been brought to the hospital for evaluation of mental status c hanges which is likely multifactorial in this patient who did tested positive for influenza A though chest x-ray did not show any evidence of pneumonia patient is currently breathing comfortably on room air and not behaving as a pneumonia, patient however did have significant positive UA with mental status changes concerning for symptomatic UTI likely from enteric gram-negative pathogen 2-patient to continue with Tamiflu to finish a 5-day course of therapy 3-patient urine culture is growing Pseudomonas aeruginosa, 4patient antibiotics has been adjusted to cefepime as of yesterday to continue and will order clinical course closely Dictation was produced using [employer] dictation software. please excuse any grammatical, word or spelling errors. Time with Patient: Less than 30
[2025-02-10 14:04] VITALS: BMI 25.8
--- NOTE | 2025-02-10 15:43 | P.PN ---
Subjective Progress Note Date: 02/10/25 Principal diagnosis: Reason for follow up with UTI and the acute influenza A Patient is a 49-year-old male with a past medical history pertinent for reflux, vitamin D deficiency rickets pending tissue disorder in this patient has been brought to the hospital concerning for mental status changes he tested positive for influenza and did have a positive UA. On today's evaluation that is 02/10/2025,the patient remains to be afebrile, patient is on room air not requiring supplemental oxygen and breathing comfortably no distress the patient is sleepy and elevated good historian had no other changes reported by the nursing staff. Patient did not have a lab draw today Objective - Vital Signs Vital signs: Vital Signs Temp 98.3 F 02/10/25 08:00 Pulse 87 02/10/25 08:00 Resp 18 02/10/25 08:00 BP 100/70 02/10/25 09:08 Pulse Ox 92 L 02/10/25 08:31 FiO2 Intake & Output 02/09/25 02/10/25 02/10/25 18:59 06:59 18:59 Intake Total 750 Balance 750 Intake: Intake, IV Titration 500 Amount Sodium Chloride 0.45% 1, 500 000 ml @ 75 mls/hr IV . [id number] ELIA Rx#:[id number] Oral 250 Other: Voiding Method Diaper Diaper Incontinent # Voids 3 1 # Bowel Movements 1 1 - Exam GENERAL DESCRIPTION: Middle-age male lying in bed in no distress RESPIRATORY SYSTEM: Unlabored breathing , decreased breath sounds at bases HEART: S1 S2 regular rate and rhythm , ABDOMEN: Soft , no tenderness EXTREMITIES: No edema feet - Labs CBC & Chem 7: 02/09/25 06:58 02/09/25 06:58 Labs: Microbiology - Last 24 Hours (Table) 02/04/25 16:20 Blood Culture - Final Blood Assessment and Plan (1) Influenza A Current Visit: Yes Status: Acute Code(s): J10.1 - FLU DUE TO OTH IDENT INFLUENZA VIRUS W OTH RESP MANIFEST SNOMED Code(s): 208012306 (2) Urinary tract infection Current Visit: No Status: Acute Code(s): N39.0 - URINARY TRACT INFECTION, SITE NOT SPECIFIED SNOMED Code(s): 07282874 Plan: 1patient has been brought to the hospital for evaluation of mental status changes which is likely multifactorial in this patient who did tested positive for influenza A though chest x-ray did not show any evidence of pneumonia patient is currently breathing comfortably on room air and not behaving as a pneumonia, patient however did have significant positive UA with mental status changes concerning for symptomatic UTI likely from enteric gram-negative pathogen 2--patient urine culture is growing Pseudomonas aeruginosa, 3patient to continue with the cefepime repeat CBC with a.m. To make sure the white count is trending down Dictation was produced using [employer] dictation software. please excuse any grammatical, word or spelling errors. Time with Patient: Less than 30
--- NOTE | 2025-02-10 17:09 | CDI ---
Documentation Clarification Form Date: 02/10/2025 04:52:34 PM From: Yancy Morgan RN CCDS Phone: [phone] Admit Date: 02/04/2025 05:32:00 PM Patient Name: Yaakov Mora Visit Number: [id number] Discharge Date: ATTENTION: The Clinical Documentation Specialists (CDI) and [facility] Coding Staff appreciate your assistance in clarifying documentation. Please respond to the clarification below the line at the bottom and electronically sign. The CDI & [facility] Coding staff will review the response and follow-up if needed. Please note: Queries are made part of the Legal Health Record. If you have any questions, please contact the author of this message via ITS. Doctor: Radha Recio Sacrum stage II pressure ulcer is documented by Nursing in pressure ulcer assessment, 02/10. Based on this information and the findings below, is there an additional diagnosis that is clinically appropriate for this patient? History/Risk Factors: 49 year old male presents to the ED from long-term with abnormal labs. Medical History: Bedbound secondary to cerebral palsy, resides at long-term. Was recently admitted to [facility] for a prolonged stay for abdominal surgery and complication of sepsis. GERD, OA, Vit D deficiency/rickets, pancreatitis, iron deficiency anemia and HTN. 02/05, Clinical Indicators: Location: Sacrum Wound description: has skin loss Treatment: Foam with border, Turn 2QH, Absorbant underpad hourly checks, Pillow between knees, Pillow elevating heels, Ensure enlive TID Is there an additional diagnosis that is clinically appropriate for this patient? [ x ] Sacrum Pressure Ulcer Stage 2insert location of ulcer] Pressure Ulcer Stage 2 [ ] Other condition, please specify [ ] Unable to determine Clinical Definitions: Stage 1 Pressure Ulcer: intact skin, non-blanching redness of local area Stage 2 Pressure Ulcer: Partial thickness, loss of dermis, pink wound bed Stage 3 Pressure Ulcer: Full thickness tissue loss Stage 4 Pressure Ulcer: Full thickness tissue loss with exposed bone, tendon, or muscle. Unstageable pressure ulcer: Full thickness tissue loss in which the base of the ulcer is covered by slough (yellow, perez, mckeon, green or brown) and/or eschar (perez, brown or black) in the wound bed. (Template Last Revised: January 2021) MTDD
--- NOTE | 2025-02-10 17:10 | CDI ---
Documentation Clarification Form Date: 02/10/2025 04:46:51 PM From: Yancy Morgan RN CCDS Phone: [phone] Admit Date: 02/04/2025 05:32:00 PM Patient Name: Yaakov Mora Visit Number: [id number] Discharge Date: ATTENTION: The Clinical Documentation Specialists (CDI) and [facility] Coding Staff appreciate your assistance in clarifying documentation. Please respond to the clarification below the line at the bottom and electronically sign. The CDI & [facility] Coding staff will review the response and follow-up if needed. Please note: Queries are made part of the Legal Health Record. If you have any questions, please contact the author of this message via ITS. Doctor: Radha Peacock Right heel stage II pressure ulcer is documented by Nursing in pressure ulcer assessment, 02/10. Based on this information and the findings below, is there an additional diagnosis that is clinically appropriate for this patient? History/Risk Factors: 49 year old male presents to the ED from [facility] with abnormal labs. Medical History: Bedbound secondary to cerebral palsy, resides at [facility]pc. Was recently admitted to [facility] for a prolonged stay for abdominal surgery and complication of sepsis. GERD, OA, Vit D deficiency/rickets, pancreatitis, iron deficiency anemia and HTN. 02/05, Clinical Indicators: Location: Right Heel Treatment: Foam with border, Turn 2QH, Absorbant underpad hourly checks, Pillow between knees, Pillow elevating heels, Ensure enlive TID Is there an additional diagnosis that is clinically appropriate for this patient? [ x ] Right heel Pressure Ulcer Stage 2 and [ ] Other condition, please specify [ ] Unable to determine Clinical Definitions: Stage 1 Pressure Ulcer: intact skin, non-blanching redness of local area Stage 2 Pressure Ulcer: Partial thickness, loss of dermis, pink wound bed Stage 3 Pressure Ulcer: Full thickness tissue loss Stage 4 Pressure Ulcer: Full thickness tissue loss with exposed bone, tendon, or muscle. Unstageable pressure ulcer: Full thickness tissue loss in which the base of the ulcer is covered by slough (yellow, perez, mckeon, green or brown) and/or eschar (perez, brown or black) in the wound bed. (Template Last Revised: January 2021) MTDD
[2025-02-10] MEDS: POTASSIUM CHLORIDE ER 20 MEQ TAB.ER PO SCH (19:48)
[2025-02-10] MEDS: ALPRAZolam 0.25 MG TAB PO STA (19:48)
[2025-02-11 08:01] LABS: Basophils # (A) 0.03 X 10*3/uL (0.00-0.10); Basophils % (A) 0.3 %; Eosinophils # (A) 0.18 X 10*3/uL (0.04-0.35); Eosinophils % (A) 2.1 %; HCT 25.7 % (39.6-50.0); HGB 7.7 g/dL (13.0-17.0); Lymphocytes % (A) 26.5 %; MCH 24.2 pg (27.0-32.0); MCV 80.8 FL (80.0-97.0); Mean Platelet Volume 10.1 FL (9.5-12.2); Monocytes # (A) 0.55 X 10*3/uL (0.20-1.00); Monocytes % (A) 6.3 %; NRBC Per 100 WBC 0.02 X 10*3/uL (0.00-0.01); Neutrophils # (A) 5.53 X 10*3/uL (1.80-7.70); Neutrophils % (A) 63.8 %; Platelet Count 198 X 10*3/uL (140-440); RBC 3.18 X 10*6/uL (4.40-5.60); WBC 8.68 X 10*3/uL (4.50-10.00)
--- NOTE | 2025-02-11 08:19 | P.PN ---
Subjective Progress Note Date: 02/10/25 Yaakov Mora, is a 49-year-old male, resident of a jail, who presented to [facility] emergency room with a chief complaint of mental status changes, he was recently admitted to [facility] with urinary tract infection and sepsis, he returned to [facility], however he started having worsening mental status changes with hallucinations, chest x-ray done in the emergency room revealed evidence of bilateral infiltrates suggestive of pneumonia, he also had severe electrolyte imbalance with potassium of 2.3 and low magnesium, he was transferred to [facility] emergency room for further evaluation and treatment. He was evaluated in the emergency room vital examination on presentation revealed a temperature of 97.4 pulse 70 respiration 18 blood pressure 89/52 pulse ox 93% on room air Laboratory data revealed a white blood count of 8.5 hemoglobin 9.7 platelet count 126 sodium 140 potassium 2.3 BUN 6 creatinine 0.49 AST 131 alkaline p hosphatase 325, influenza A PCR was positive, magnesium 1.5 Testing in the emergency room revealed, chest x-ray revealed right-sided PICC line with distal tip at the cavoatrial junction, low lung volumes without definitive airspace disease. Patient was admitted to medical floor for further evaluation and treatment On 02/06/2025 patient was seen and examined on the medical floor, initially patient was unresponsive, and having some shaking movement in extremities, subsequently patient was more alert responsive, confused in no apparent distress. His vital exam revealed a temperature of 100.1 pulse 108 respiration 20 blood pressure 103/68 pulse ox 92% on room air, labs are still pending potassium is up to 3.5 On 02/07/2025 patient was seen and examined on the medical floor he is alert and oriented in no apparent distress his mental status has improved significantly there is no fever or chills no headache or dizziness no chest pain no shortness of breath no cough no nausea or vomiting no abdominal pain no diarrhea and no urinary symptoms. Input from neurology reviewed. Infectious disease following On 02/08/2025 patient was seen and examined on the medical floor he is alert and oriented in no apparent distress there is no fever or chills no headache or dizziness no chest pain no shortness of breath no cough no nausea or vomiting no abdominal pain no diarrhea and no urinary symptoms. Currently he is maintained on cefepime, infectious disease are following On 02/09/2025 patient was seen and examined on the medical floor he is alert and oriented x 3 in no distress, he denies any symptoms at this time there is no fever or chills no headache or dizziness no chest pain no shortness of breath no cough no nausea or vomiting no abdominal pain no diarrhea and no urinary symptoms, his temperature is 98.4 pulse 87 respiration 18 blood pressure 94/68 pulse ox 95% on room air white blood count is 12.4 hemoglobin 8.5 platelet count 227 sodium 146 potassium 3.1 chloride 116 BUN 3.5 creatinine 0.6 patient remains on IV cefepime infectious disease following On 02/10/2025 patient was seen and examined on the medical floor he is alert and oriented x 3 in no distress, he denies any symptoms at this time there is no fever or chills no headache or dizziness no chest pain no shortness of breath no cough no nausea or vomiting no abdominal pain no diarrhea and no urinary symptoms, patient remains on IV cefepime infectious disease following Objective - Vital Signs Vital signs: Vital Signs Temp 98.3 F 02/10/25 08:00 Pulse 87 02/10/25 08:00 Resp 18 02/10/25 08:00 BP 100/70 02/10/25 09:08 Pulse Ox 92 L 02/10/25 08:31 FiO2 Intake & Output 02/09/25 02/10/25 02/10/25 18:59 06:59 18:59 Intake Total 750 Balance 750 Intake: Intake, IV Titration 500 Amount Sodium Chloride 0.45% 1, 500 000 ml @ 75 mls/hr IV . [id number] [facility] Rx#:[id number] Oral 250 Other: Voiding Method Diaper Diaper Incontinent # Voids 3 1 # Bowel Movements 1 1 - Exam In general patient is alert and oriented x 3 in no distress HEENT head normocephalic and atraumatic Neck is supple no JVD no goiter no lymphadenopathy no carotid bruit Chest examination reveals a scattered crackles bilaterally no wheezing Cardiac exam reveals regular heart sounds S1 and S2 no gallops no murmurs Abdomen is soft nontender no organomegaly with normal bowel sounds Extremity exam reveals no edema no cyanosis or clubbing, there is severe joint deformity in hands Neurological examination reveals no gross focal deficits - Labs CBC & Chem 7: 02/11/25 04:57 02/10/25 18:38 Labs: Microbiology - Last 24 Hours (Table) 02/04/25 16:20 Blood Culture - Final Blood Assessment and Plan Plan: Acute influenza A infection Dehydration with hypotension Severe electrolyte imbalance with hypokalemia and hypomagnesemia Acute mental status changes Recent history of common bile duct calculus Recent admission with urinary tract infection and sepsis Underlying history of physical debility, patient is bedridden Underlying history of anemia Underlying history of depression Underlying history of benign prostatic hypertrophy Underlying history of restless leg syndrome Remote history of vitamin D deficiency with history of rickets, with significant bone deformity. At this time patient was seen and examined Home medications reviewed and reordered He was started on IV antibiotics ceftriaxone in the emergency room, he was also started on oral Tamiflu Infectious disease consultation was requested Patient was started on IV fluid, and electrolyte correction protocols Prognosis is guarded Will obtain records from [facility] Will follow closely
[2025-02-11 08:49] LABS: ALT 28 U/L (10-49); AST 52 U/L (14-35); Albumin 1.3 g/dL (3.8-4.9); Albumin/Globulin Ratio 0.36 Ratio (1.60-3.17); Alkaline Phosphatase 192 U/L (41-126); BUN/Creat Ratio 7.17 Ratio (12.00-20.00); Blood Urea Nitrogen 4.3 mg/dL (9.0-27.0); Calcium 6.8 mg/dL (8.7-10.3); Carbon Dioxide 21.6 mmol/L (21.6-31.8); Chloride 116 mmol/L (96-109); Globulin 3.6 g/dL (1.6-3.3); Glucose 110 mg/dL (70-110); Potassium 2.7 mmol/L (3.5-5.5); Sodium 145 mmol/L (135-145); Total Bilirubin 0.5 mg/dL (0.3-1.2); Total Protein 4.9 g/dL (6.2-8.2)
[2025-02-11] MEDS: POTASSIUM CHLORIDE ER 20 MEQ TAB.ER PO SCH ×2 (10:13→21:34)
--- NOTE | 2025-02-11 15:21 | P.PN ---
Subjective Progress Note Date: 02/11/25 Principal diagnosis: Reason for follow up with UTI and the acute influenza A Patient is a 49-year-old male with a past medical history pertinent for reflux, vitamin D deficiency rickets pending tissue disorder in this patient has been brought to the hospital concerning for mental status changes he tested positive for influenza and did have a positive UA. On today's evaluation that is 02/11/2025, the patient continues to be afebrile, the patient is on room air and breathing comfortably, the Pt does not seem to be any distress remains to be nonverbal and unable to provide any history no vomiting or diarrhea reported by the nurse at the bedside. Patient white count is 8.68, creatinine 0.5 Objective - Vital Signs Vital signs: Vital Signs Temp 98.3 F 02/11/25 00:02 Pulse 67 02/11/25 10:15 Resp 16 02/11/25 10:15 BP 96/63 02/11/25 02:35 Pulse Ox 92 L 02/11/25 00:02 FiO2 Intake & Output 02/10/25 02/11/25 02/11/25 18:59 06:59 18:59 Output Total 400 Balance -400 Weight 72.575 kg Output: Urine 400 Other: Voiding Method Diaper Diaper External Catheter External Catheter # Voids 2 2 # Bowel Movements 1 - Exam GENERAL DESCRIPTION: Middle-age male lying in bed in no distress RESPIRATORY SYSTEM: Unlabored breathing , decreased breath sounds at bases HEART: S1 S2 regular rate and rhythm , ABDOMEN: Soft , no tenderness EXTREMITIES: No edema feet - Labs CBC & Chem 7: 02/11/25 04:57 02/11/25 04:57 Labs: Abnormal Lab Results - Last 24 Hours (Table) 02/11/25 02/11/25 Range/Units 04:57 04:57 RBC 3.18 L (4.40-5.60) X 10*6/uL Hgb 7.7 L (13.0-17.0) g/dL Hct 25.7 L (39.6-50.0) % MCH 24.2 L (27.0-32.0) pg MCHC 30.0 L (32.0-37.0) g/dL RDW 24.0 H (11.5-14.5) % Immature Gran # 0.09 H (0.00-0.04) X 10*3/uL NRBC/100 WBC Diff 0.02 H (0.00-0.01) X 10*3/uL Potassium 2.7 A* (3.5-5.5) mmol/L Chloride 116 H (96-109) mmol/L BUN 4.3 L (9.0-27.0) mg/dL BUN/Creatinine Ratio 7.17 L (12.00-20.00) Ratio Calcium 6.8 L (8.7-10.3) mg/dL AST 52 H (14-35) U/L Alkaline Phosphatase 192 H (41-126) U/L C-Reactive Protein 13.20 H (0.00-0.80) mg/dL Total Protein 4.9 L (6.2-8.2) g/dL Albumin 1.3 L (3.8-4.9) g/dL Globulin 3.6 H (1.6-3.3) g/dL Albumin/Globulin Ratio 0.36 L (1.60-3.17) Ratio Assessment and Plan (1) Influenza A Current Visit: Yes Status: Acute Code(s): J10.1 - FLU DUE TO OTH IDENT INFLUENZA VIRUS W OTH RESP MANIFEST SNOMED Code(s): 163865866 (2) Urinary tract infection Current Visit: No Status: Acute Code(s): N39.0 - URINARY TRACT INFECTION, SITE NOT SPECIFIED SNOMED Code(s): 60189330 Plan: 1patient has been brought to the hospital for evaluation of mental status changes which is likely multifactorial in this patient who did tested positive for influenza A though chest x-ray did not show any evidence of pneumonia patient is currently breathing comfortably on room air and not behaving as a pneumonia, patient however did have significant positive UA with mental status changes concerning for symptomatic UTI likely from enteric gram-negative pathogen 2--patient urine culture is growing Pseudomonas aeruginosa, 3patient white count has normalized we will continue cefepime to finish a 10- day course of therapy Dictation was produced using [employer] dictation software. please excuse any grammatical, word or spelling errors. Time with Patient: Less than 30
--- NOTE | 2025-02-11 15:34 | P.PN ---
Subjective Progress Note Date: 02/11/25 Yaakov Mora, is a 49-year-old male, resident of a snf, who presented to [facility] emergency room with a chief complaint of mental status changes, he was recently admitted to [facility] with urinary tract infection and sepsis, he returned to [facility], however he started having worsening mental status changes with hallucinations, chest x-ray done in the emergency room revealed evidence of bilateral infiltrates suggestive of pneumonia, he also had severe electrolyte imbalance with potassium of 2.3 and low magnesium, he was transferred to [facility] emergency room for further evaluation and treatment. He was evaluated in the emergency room vital examination on presentation revealed a temperature of 97.4 pulse 70 respiration 18 blood pressure 89/52 pulse ox 93% on room air Laboratory data revealed a white blood count of 8.5 hemoglobin 9.7 platelet count 126 sodium 140 potassium 2.3 BUN 6 creatinine 0.49 AST 131 alkaline p hosphatase 325, influenza A PCR was positive, magnesium 1.5 Testing in the emergency room revealed, chest x-ray revealed right-sided PICC line with distal tip at the cavoatrial junction, low lung volumes without definitive airspace disease. Patient was admitted to medical floor for further evaluation and treatment On 02/06/2025 patient was seen and examined on the medical floor, initially patient was unresponsive, and having some shaking movement in extremities, subsequently patient was more alert responsive, confused in no apparent distress. His vital exam revealed a temperature of 100.1 pulse 108 respiration 20 blood pressure 103/68 pulse ox 92% on room air, labs are still pending potassium is up to 3.5 On 02/07/2025 patient was seen and examined on the medical floor he is alert and oriented in no apparent distress his mental status has improved significantly there is no fever or chills no headache or dizziness no chest pain no shortness of breath no cough no nausea or vomiting no abdominal pain no diarrhea and no urinary symptoms. Input from neurology reviewed. Infectious disease following On 02/08/2025 patient was seen and examined on the medical floor he is alert and oriented in no apparent distress there is no fever or chills no headache or dizziness no chest pain no shortness of breath no cough no nausea or vomiting no abdominal pain no diarrhea and no urinary symptoms. Currently he is maintained on cefepime, infectious disease are following On 02/09/2025 patient was seen and examined on the medical floor he is alert and oriented x 3 in no distress, he denies any symptoms at this time there is no fever or chills no headache or dizziness no chest pain no shortness of breath no cough no nausea or vomiting no abdominal pain no diarrhea and no urinary symptoms, his temperature is 98.4 pulse 87 respiration 18 blood pressure 94/68 pulse ox 95% on room air white blood count is 12.4 hemoglobin 8.5 platelet count 227 sodium 146 potassium 3.1 chloride 116 BUN 3.5 creatinine 0.6 patient remains on IV cefepime infectious disease following On 02/10/2025 patient was seen and examined on the medical floor he is alert and oriented x 3 in no distress, he denies any symptoms at this time there is no fever or chills no headache or dizziness no chest pain no shortness of breath no cough no nausea or vomiting no abdominal pain no diarrhea and no urinary symptoms, patient remains on IV cefepime infectious disease following. On 02/11/2025 patient was seen and examined on the medical floor he is alert and oriented in no apparent distress he denies any complaints there is no fever or chills no headache or dizziness no chest pain no shortness of breath no cough no nausea or vomiting no abdominal pain no diarrhea no urinary symptoms. Blood count is improving, he remains on IV cefepime, infectious disease following. Will continue to follow. Objective - Vital Signs Vital signs: Vital Signs Temp 98.3 F 02/11/25 00:02 Pulse 84 02/11/25 00:02 Resp 16 02/11/25 00:02 BP 96/63 02/11/25 02:35 Pulse Ox 92 L 02/11/25 00:02 FiO2 Intake & Output 02/10/25 02/11/25 02/11/25 18:59 06:59 18:59 Output Total 400 Balance -400 Weight 72.575 kg Output: Urine 400 Other: Voiding Method Diaper External Catheter # Voids 2 2 # Bowel Movements 1 - Exam In general patient is alert and oriented x 3 in no distress HEENT head normocephalic and atraumatic Neck is supple no JVD no goiter no lymphadenopathy no carotid bruit Chest examination reveals a scattered crackles bilaterally no wheezing Cardiac exam reveals regular heart sounds S1 and S2 no gallops no murmurs Abdomen is soft nontender no organomegaly with normal bowel sounds Extremity exam reveals no edema no cyanosis or clubbing, there is severe joint deformity in hands Neurological examination reveals no gross focal deficits - Labs CBC & Chem 7: 02/11/25 04:57 02/11/25 04:57 Labs: Abnormal Lab Results - Last 24 Hours (Table) 02/11/25 02/11/25 Range/Units 04:57 04:57 RBC 3.18 L (4.40-5.60) X 10*6/uL Hgb 7.7 L (13.0-17.0) g/dL Hct 25.7 L (39.6-50.0) % MCH 24.2 L (27.0-32.0) pg MCHC 30.0 L (32.0-37.0) g/dL RDW 24.0 H (11.5-14.5) % Immature Gran # 0.09 H (0.00-0.04) X 10*3/uL NRBC/100 WBC Diff 0.02 H (0.00-0.01) X 10*3/uL C-Reactive Protein 13.20 H (0.00-0.80) mg/dL Microbiology - Last 24 Hours (Table) 02/04/25 16:20 Blood Culture - Final Blood Assessment and Plan Plan: Acute influenza A infection Dehydration with hypotension Severe electrolyte imbalance with hypokalemia and hypomagnesemia Acute mental status changes Recent history of common bile duct calculus Recent admission with urinary tract infection and sepsis Underlying history of physical debility, patient is bedridden Underlying history of anemia Underlying history of depression Underlying history of benign prostatic hypertrophy Underlying history of restless leg syndrome Remote history of vitamin D deficiency with history of rickets, with significant bone deformity. At this time patient was seen and examined Home medications reviewed and reordered He was started on IV antibiotics ceftriaxone in the emergency room, he was also started on oral Tamiflu Infectious disease consultation was requested Patient was started on IV fluid, and electrolyte correction protocols Prognosis is guarded Will obtain records from [facility] Will follow closely
[2025-02-11] MEDS: ONDANSETRON ODT 4 MG TAB PO PRN (19:44)
[2025-02-11] MEDS: POTASSIUM CHLORIDE 20 MEQ in WATER FOR INJECTION 1 100ML.BAG IVPB SCH (22:36)
[2025-02-12 05:25] LABS: African American GFR (CKD) >90 (>60 ml/min/1.73 sqM); Anion Gap 5 mmol/L; Blood Urea Nitrogen 5 mg/dL (9-20); Calcium 6.9 mg/dL (8.4-10.2); Carbon Dioxide 21 mmol/L (22-30); Chloride 115 mmol/L (98-107); Glucose 97 mg/dL (74-99); Non-African American GFR(CKD) >90 (>60 ml/min/1.73 sqM); Potassium 3.7 mmol/L (3.5-5.1); Sodium 141 mmol/L (137-145)
--- NOTE | 2025-02-12 08:59 | P.PN ---
Subjective Progress Note Date: 02/12/25 Yaakov Mora, is a 49-year-old male, resident of a skilled nursing, who presented to [facility] emergency room with a chief complaint of mental status changes, he was recently admitted to [facility] with urinary tract infection and sepsis, he returned to [facility], however he started having worsening mental status changes with hallucinations, chest x-ray done in the emergency room revealed evidence of bilateral infiltrates suggestive of pneumonia, he also had severe electrolyte imbalance with potassium of 2.3 and low magnesium, he was transferred to [facility] emergency room for further evaluation and treatment. He was evaluated in the emergency room vital examination on presentation revealed a temperature of 97.4 pulse 70 respiration 18 blood pressure 89/52 pulse ox 93% on room air Laboratory data revealed a white blood count of 8.5 hemoglobin 9.7 platelet count 126 sodium 140 potassium 2.3 BUN 6 creatinine 0.49 AST 131 alkaline p hosphatase 325, influenza A PCR was positive, magnesium 1.5 Testing in the emergency room revealed, chest x-ray revealed right-sided PICC line with distal tip at the cavoatrial junction, low lung volumes without definitive airspace disease. Patient was admitted to medical floor for further evaluation and treatment On 02/06/2025 patient was seen and examined on the medical floor, initially patient was unresponsive, and having some shaking movement in extremities, subsequently patient was more alert responsive, confused in no apparent distress. His vital exam revealed a temperature of 100.1 pulse 108 respiration 20 blood pressure 103/68 pulse ox 92% on room air, labs are still pending potassium is up to 3.5 On 02/07/2025 patient was seen and examined on the medical floor he is alert and oriented in no apparent distress his mental status has improved significantly there is no fever or chills no headache or dizziness no chest pain no shortness of breath no cough no nausea or vomiting no abdominal pain no diarrhea and no urinary symptoms. Input from neurology reviewed. Infectious disease following On 02/08/2025 patient was seen and examined on the medical floor he is alert and oriented in no apparent distress there is no fever or chills no headache or dizziness no chest pain no shortness of breath no cough no nausea or vomiting no abdominal pain no diarrhea and no urinary symptoms. Currently he is maintained on cefepime, infectious disease are following On 02/09/2025 patient was seen and examined on the medical floor he is alert and oriented x 3 in no distress, he denies any symptoms at this time there is no fever or chills no headache or dizziness no chest pain no shortness of breath no cough no nausea or vomiting no abdominal pain no diarrhea and no urinary symptoms, his temperature is 98.4 pulse 87 respiration 18 blood pressure 94/68 pulse ox 95% on room air white blood count is 12.4 hemoglobin 8.5 platelet count 227 sodium 146 potassium 3.1 chloride 116 BUN 3.5 creatinine 0.6 patient remains on IV cefepime infectious disease following On 02/10/2025 patient was seen and examined on the medical floor he is alert and oriented x 3 in no distress, he denies any symptoms at this time there is no fever or chills no headache or dizziness no chest pain no shortness of breath no cough no nausea or vomiting no abdominal pain no diarrhea and no urinary symptoms, patient remains on IV cefepime infectious disease following. On 02/11/2025 patient was seen and examined on the medical floor he is alert and oriented in no apparent distress he denies any complaints there is no fever or chills no headache or dizziness no chest pain no shortness of breath no cough no nausea or vomiting no abdominal pain no diarrhea no urinary symptoms. Blood count is improving, he remains on IV cefepime, infectious disease following. Will continue to follow. On 02/12/2025 patient was seen and examined on the medical floor he is alert and oriented in no apparent distress, he denies any symptoms at this time, vital examination reveals a temperature of 98.3 pulse 93 respiration 18 blood pressure 95/55 sodium 141 potassium 3.7 chloride 115 CO2 21 BUN 5 creatinine 0.59. Patient remains on IV cefepime infectious disease following. Objective - Vital Signs Vital signs: Vital Signs Temp 98.3 F 02/12/25 00:55 Pulse 120 H 02/12/25 01:11 Resp 18 02/12/25 00:55 BP 93/58 02/12/25 04:30 Pulse Ox 98 02/12/25 00:55 FiO2 Intake & Output 02/11/25 02/12/25 02/12/25 18:59 06:59 18:59 Output Total 900 Balance -900 Output: Urine 900 Other: Voiding Method Diaper External Catheter External Catheter # Voids 1 - Exam In general patient is alert and oriented x 3 in no distress HEENT head normocephalic and atraumatic Neck is supple no JVD no goiter no lymphadenopathy no carotid bruit Chest examination reveals a scattered crackles bilaterally no wheezing Cardiac exam reveals regular heart sounds S1 and S2 no gallops no murmurs Abdomen is soft nontender no organomegaly with normal bowel sounds Extremity exam reveals no edema no cyanosis or clubbing, there is severe joint deformity in hands Neurological examination reveals no gross focal deficits - Labs CBC & Chem 7: 02/11/25 04:57 02/12/25 04:08 Labs: Abnormal Lab Results - Last 24 Hours (Table) 02/11/25 02/11/25 02/11/25 Range/Units 04:57 04:57 20:53 RBC 3.18 L (4.40-5.60) X 10*6/uL Hgb 7.7 L (13.0-17.0) g/dL Hct 25.7 L (39.6-50.0) % MCH 24.2 L (27.0-32.0) pg MCHC 30.0 L (32.0-37.0) g/dL RDW 24.0 H (11.5-14.5) % Immature Gran # 0.09 H (0.00-0.04) X 10*3/uL NRBC/100 WBC Diff 0.02 H (0.00-0.01) X 10*3/uL Potassium 2.7 A* 3.4 L (3.5-5.5) mmol/L Chloride 116 H (96-109) mmol/L Carbon Dioxide (22-30) mmol/L BUN 4.3 L (9.0-27.0) mg/dL Creatinine (0.66-1.25) mg/dL BUN/Creatinine Ratio 7.17 L (12.00-20.00) Ratio Calcium 6.8 L (8.7-10.3) mg/dL AST 52 H (14-35) U/L Alkaline Phosphatase 192 H (41-126) U/L C-Reactive Protein 13.20 H (0.00-0.80) mg/dL Total Protein 4.9 L (6.2-8.2) g/dL Albumin 1.3 L (3.8-4.9) g/dL Globulin 3.6 H (1.6-3.3) g/dL Albumin/Globulin Ratio 0.36 L (1.60-3.17) Ratio // Range/Units 04:08 RBC (4.40-5.60) X 10*6/uL Hgb (13.0-17.0) g/dL Hct (39.6-50.0) % MCH (27.0-32.0) pg MCHC (32.0-37.0) g/dL RDW (11.5-14.5) % Immature Gran # (0.00-0.04) X 10*3/uL NRBC/100 WBC Diff (0.00-0.01) X 10*3/uL Potassium (3.5-5.5) mmol/L Chloride 115 H (96-109) mmol/L Carbon Dioxide 21 L (22-30) mmol/L BUN 5 L (9.0-27.0) mg/dL Creatinine 0.59 L (0.66-1.25) mg/dL BUN/Creatinine Ratio (12.00-20.00) Ratio Calcium 6.9 L (8.7-10.3) mg/dL AST (14-35) U/L Alkaline Phosphatase (41-126) U/L C-Reactive Protein (0.00-0.80) mg/dL Total Protein (6.2-8.2) g/dL Albumin (3.8-4.9) g/dL Globulin (1.6-3.3) g/dL Albumin/Globulin Ratio (1.60-3.17) Ratio Assessment and Plan Plan: Acute influenza A infection Dehydration with hypotension Evidence of urinary tract infection with sepsis urine culture positive for Pseudomonas aeruginosa Severe electrolyte imbalance with hypokalemia and hypomagnesemia Acute mental status changes Recent history of common bile duct calculus Recent admission with urinary tract infection and sepsis Underlying history of physical debility, patient is bedridden Underlying history of anemia Underlying history of depression Underlying history of benign prostatic hypertrophy Underlying history of restless leg syndrome Remote history of vitamin D deficiency with history of rickets, with significant bone deformity. At this time patient was seen and examined Home medications reviewed and reordered He was started on IV antibiotics ceftriaxone in the emergency room, he was also started on oral Tamiflu Infectious disease consultation was requested Patient was started on IV fluid, and electrolyte correction protocols Prognosis is guarded Will obtain records from [facility] Will follow closely
[2025-02-12] MEDS: LORazepam 1 MG/0.5 ML VIAL IV STA (12:38)
[2025-02-12] MEDS: HALOPERIDOL LACTATE 5 MG/ML 1 ML VIAL IM STA (14:14)
[2025-02-12] MEDS: ONDANSETRON 4 MG/2 ML VIAL IVP PRN (14:19)
[2025-02-12] MEDS: HYDROmorphone 0.5 MG/0.5 ML SYRINGE IVP PRN (15:13)
--- NOTE | 2025-02-12 15:13 | P.PN ---
Subjective Progress Note Date: 02/12/25 Principal diagnosis: Reason for follow up with UTI and the acute influenza A Patient is a 49-year-old male with a past medical history pertinent for reflux, vitamin D deficiency rickets pending tissue disorder in this patient has been brought to the hospital concerning for mental status changes he tested positive for influenza and did have a positive UA. On today's evaluation that is 02/12/2025, patient did not have any fever and patient is breathing comfortably on 2 L current oxygen, patient remains to be sleepy and not a very good historian no vomiting or diarrhea reported. Patient did have a creatinine 0.59 no CBC was done today blood culture have been negative Objective - Vital Signs Vital signs: Vital Signs Temp 98.6 F 02/12/25 07:51 Pulse 89 02/12/25 07:51 Resp 18 02/12/25 07:51 BP 90/48 02/12/25 07:51 Pulse Ox 92 L 02/12/25 07:51 FiO2 Intake & Output 02/11/25 02/12/25 02/12/25 18:59 06:59 18:59 Output Total 900 900 Balance -900 -900 Output: Urine 900 900 Other: Voiding Method Diaper External Catheter External Catheter External Catheter # Voids 1 - Exam GENERAL DESCRIPTION: Middle-age male lying in bed in no distress RESPIRATORY SYSTEM: Unlabored breathing , decreased breath sounds at bases HEART: S1 S2 regular rate and rhythm , ABDOMEN: Soft , no tenderness EXTREMITIES: No edema feet - Labs CBC & Chem 7: 02/11/25 04:57 02/12/25 04:08 Labs: Abnormal Lab Results - Last 24 Hours (Table) 02/11/25 02/12/25 Range/Units 20:53 04:08 Potassium 3.4 L (3.5-5.1) mmol/L Chloride 115 H (98-107) mmol/L Carbon Dioxide 21 L (22-30) mmol/L BUN 5 L (9-20) mg/dL Creatinine 0.59 L (0.66-1.25) mg/dL Calcium 6.9 L (8.4-10.2) mg/dL Assessment and Plan (1) Influenza A Current Visit: Yes Status: Acute Code(s): J10.1 - FLU DUE TO OTH IDENT INFLUENZA VIRUS W OTH RESP MANIFEST SNOMED Code(s): 105741209 (2) Urinary tract infection Current Visit: No Status: Acute Code(s): N39.0 - URINARY TRACT INFECTION, SITE NOT SPECIFIED SNOMED Code(s): 73811760 Plan: 1patient has been brought to the hospital for evaluation of mental status changes which is likely multifactorial in this patient who did tested positive for influenza A though chest x-ray did not show any evidence of pneumonia patient is currently breathing comfortably on room air and not behaving as a pneumonia, patient however did have significant positive UA with mental status changes concerning for symptomatic UTI likely from enteric gram-negative pathogen 2--patient urine culture is growing Pseudomonas aeruginosa, 3patient white count has normalized blood culture has been negative, continue with the cefepime to finish his course of therapy Dictation was produced using [employer] dictation software. please excuse any grammatical, word or spelling errors. Time with Patient: Less than 30
[2025-02-12 16:18] LABS: Anisocytosis Moderate; HCT 30.2 % (39.0-53.0); HGB 8.7 gm/dL (13.0-17.5); Hypochromasia Marked; MCH 24.5 pg (25.0-35.0); MCHC 28.9 g/dL (31.0-37.0); MCV 84.9 fL (80.0-100.0); Mean Platelet Volume 8.5; Microcytosis Slight; Platelet Count 287 k/uL (150-450); Poikilocytosis Slight; RBC 3.55 m/uL (4.30-5.90); RDW 23.5 % (11.5-15.5); WBC 12.1 k/uL (3.8-10.6)
[2025-02-12] MEDS: SODIUM CHLORIDE 0.9% 1,000 ML IV SCH ×2 (17:53→23:13)
[2025-02-12 21:59] LABS: Glucose,Whole Blood 79 mg/dL (70-110)
[2025-02-12 22:42] LABS: Glucose,Whole Blood 82 mg/dL (70-110)
[2025-02-12] MEDS: NOREPINEPHRINE 8 MG in SODIUM CHLORIDE 0.9% 250 ML IV SCH (23:12)
[2025-02-12 23:25] LABS: Anisocytosis Moderate; Basophils % (A) 0 %; Eosinophils % (A) 0 %; Hypochromasia Marked; Lymphocytes # (A) 0.7 k/uL (1.0-4.8); Lymphocytes % (A) 9 %; MCH 25.4 pg (25.0-35.0); MCHC 30.8 g/dL (31.0-37.0); MCV 82.2 fL (80.0-100.0); Mean Platelet Volume 8.1; Microcytosis Slight; Monocytes # (A) 0.8 k/uL (0-1.0); Monocytes % (A) 10 %; Neutrophils # (A) 6.8 k/uL (1.3-7.7); Neutrophils % (A) 80 %; Platelet Count 169 k/uL (150-450); Poikilocytosis Slight; RDW 23.8 % (11.5-15.5); WBC 8.5 k/uL (3.8-10.6)
[2025-02-12 23:28] LABS: HCT 19.7 % (39.0-53.0); VBG PH 7.4 (7.31-7.41)
[2025-02-12 23:30] LABS: HGB 6.1 gm/dL (13.0-17.5)
[2025-02-12 23:38] LABS: African American GFR (CKD) >90 (>60 ml/min/1.73 sqM); Anion Gap 8 mmol/L; Blood Urea Nitrogen 4 mg/dL (9-20); Chloride 128 mmol/L (98-107); Glucose 58 mg/dL (74-99); Non-African American GFR(CKD) >90 (>60 ml/min/1.73 sqM); Potassium 2.9 mmol/L (3.5-5.1); Sodium 144 mmol/L (137-145)
[2025-02-12 23:42] LABS: Calcium 4.6 mg/dL (8.4-10.2); Carbon Dioxide 8 mmol/L (22-30); Magnesium 0.9 mg/dL (1.6-2.3)
[2025-02-13] MEDS: SODIUM BICARB 8.4% 50 ML SYR (1 MEQ/ML) IV STA ×2 (00:02→07:51)
[2025-02-13] MEDS ORDERED: Magnesium Replacement Protocol 1 EACH MISC MISCELLANE PRN (00:03)
[2025-02-13 00:16] LABS: Glucose,Whole Blood 78 mg/dL (70-110)
[2025-02-13] MEDS: DEXTROSE 5% IN WATER 1,000 ML with SODIUM BICARB (1 MEQ/ML) 150 ML IV SCH (00:30)
[2025-02-13] MEDS: MAGNESIUM SULFATE-D5W PMX 1 GM in DEXTROSE/WATER 1 100ML.BAG IVPB SCH (00:30)
--- NOTE | 2025-02-13 00:54 | ED ---
Medical Decision Making - Medical Decision Making I was asked by ICU staff to assist with a central venous catheter line placement any 49-year-old male who was transferred to the ICU from the floor for sepsis secondary to influenza. Patient seen and evaluated at the bedside. According to nurse patient has history of debility. He is allegedly full code. Patient has significant tractors to all of his extremities including his neck. Attempt was made to put right femoral central line however due to contractures and edema was unsuccessful. Ultrasound IV was placed in the left upper extremity using ultrasound guidance. Right IJ CVC was placed. Postprocedure x-ray shows no pneumothorax and good positioning. He does have an indwelling right PICC line. - Lab Data Result diagrams: 02/12/25 23:04 02/12/25 23:04 Lab Results 02/04/25 02/04/25 02/04/25 Range/Units 16:24 16:24 16:24 WBC 8.5 (3.8-10.6) k/uL RBC 4.22 L (4.30-5.90) m/uL Hgb 9.7 L (13.0-17.5) gm/dL Hct 33.7 L (39.0-53.0) % MCV 79.8 L (80.0-100.0) fL MCH 23.1 L (25.0-35.0) pg MCHC 28.9 L (31.0-37.0) g/dL RDW 19.3 H (11.5-15.5) % Plt Count 126 L (150-450) k/uL MPV 9.9 Neutrophils % 77 % Lymphocytes % 15 % Monocytes % 4 % Eosinophils % 1 % Basophils % 0 % Neutrophils # 6.5 (1.3-7.7) k/uL Lymphocytes # 1.3 (1.0-4.8) k/uL Monocytes # 0.4 (0-1.0) k/uL Eosinophils # 0.1 (0-0.7) k/uL Basophils # 0.0 (0-0.2) k/uL Hypochromasia Marked Anisocytosis Slight Microcytosis Slight PT 19.5 H (10.0-12.5) sec INR 1.9 H (<1.2) APTT 30.5 H (22.0-30.0) sec Sodium 140 (137-145) mmol/L Potassium 2.3 L* (3.5-5.1) mmol/L Chloride 106 (98-107) mmol/L Carbon Dioxide 27 (22-30) mmol/L Anion Gap 7 mmol/L BUN 6 L (9-20) mg/dL Creatinine 0.49 L (0.66-1.25) mg/dL Est GFR (CKD-EPI)AfAm >90 (>60 ml/min/1.73 sqM) Est GFR (CKD-EPI)NonAf >90 (>60 ml/min/1.73 sqM) Glucose 104 H (74-99) mg/dL Plasma Lactic Acid Rene (0.7-2.0) mmol/L Calcium 7.0 L (8.4-10.2) mg/dL Magnesium 1.8 (1.6-2.3) mg/dL Total Bilirubin 0.5 (0.2-1.3) mg/dL AST 131 H (17-59) U/L ALT 46 (4-49) U/L Alkaline Phosphatase 325 H (38-126) U/L Total Protein 5.6 L (6.3-8.2) g/dL Albumin 1.8 L (3.5-5.0) g/dL Influenza Type A (PCR) (Not Detectd) Influenza Type B (PCR) (Not Detectd) RSV (PCR) (Not Detectd) SARS-CoV-2 (PCR) (Not Detectd) 02/04/25 02/04/25 Range/Units 16:24 16:29 WBC (3.8-10.6) k/uL RBC (4.30-5.90) m/uL Hgb (13.0-17.5) gm/dL Hct (39.0-53.0) % MCV (80.0-100.0) fL MCH (25.0-35.0) pg MCHC (31.0-37.0) g/dL RDW (11.5-15.5) % Plt Count (150-450) k/uL MPV Neutrophils % % Lymphocytes % % Monocytes % % Eosinophils % % Basophils % % Neutrophils # (1.3-7.7) k/uL Lymphocytes # (1.0-4.8) k/uL Monocytes # (0-1.0) k/uL Eosinophils # (0-0.7) k/uL Basophils # (0-0.2) k/uL Hypochromasia Anisocytosis Microcytosis PT (10.0-12.5) sec INR (<1.2) APTT (22.0-30.0) sec Sodium (137-145) mmol/L Potassium (3.5-5.1) mmol/L Chloride (98-107) mmol/L Carbon Dioxide (22-30) mmol/L Anion Gap mmol/L BUN (9-20) mg/dL Creatinine (0.66-1.25) mg/dL Est GFR (CKD-EPI)AfAm (>60 ml/min/1.73 sqM) Est GFR (CKD-EPI)NonAf (>60 ml/min/1.73 sqM) Glucose (74-99) mg/dL Plasma Lactic Acid Rene 1.1 (0.7-2.0) mmol/L Calcium (8.4-10.2) mg/dL Magnesium (1.6-2.3) mg/dL Total Bilirubin (0.2-1.3) mg/dL AST (17-59) U/L ALT (4-49) U/L Alkaline Phosphatase (38-126) U/L Total Protein (6.3-8.2) g/dL Albumin (3.5-5.0) g/dL Influenza Type A (PCR) Detected A (Not Detectd) Influenza Type B (PCR) Not Detected (Not Detectd) RSV (PCR) Not Detected (Not Detectd) SARS-CoV-2 (PCR) Not Detected (Not Detectd) Disposition Clinical Impression: Dehydration, Hypokalemia Disposition: ADMITTED IP TO THIS HOSP Condition: Stable Procedures - Central Line Placement Right IJ Consent Obtained: verbal consent, emergent situation Patient Placed on Monitor/Pulse Ox: Yes MD Prep: mask, gown, gloves Central Line Prep: Chlorhexidine scrub Ultrasound Used for Placement: Yes Central Line Lumen Inserted: triple Bloods Obtained for Lab: No Central Line Position: good blood return, all ports aspirated, flushed, capped, sutured in place with 3-0 nylon Dressing Applied: Tegaderm Post Procedure X-Ray: tip of catheter in good position Patient Tolerated Procedure: well Complications: none
--- NOTE | 2025-02-13 00:55 | XR ---
EXAMINATION TYPE: XR chest 1V portable DATE OF EXAM: 02/12/2025 10:29 PM COMPARISON: Chest radiographs from 02/04/2025 CLINICAL INDICATION: Male, 49 years old with history of Resp distress; [facility] TECHNIQUE: XR chest 1V portable Frontal view of the chest. FINDINGS: Lungs/Pleura: Multifocal airspace opacities. No evidence of pneumothorax or pleural effusion. Pulmonary vascularity: Unremarkable. Heart/mediastinum: Cardiomediastinal silhouette is unremarkable. Musculoskeletal: No acute osseous pathology. Other findings: None Lines/Tubes:Right-sided PICC line with distal tip at the cavoatrial junction. IMPRESSION: Similar multifocal airspace opacities. [facility], , 02/13/2025 12:53 AM
--- NOTE | 2025-02-13 01:00 | XR ---
EXAMINATION TYPE: XR chest 1V portable DATE OF EXAM: 02/13/2025 12:49 AM COMPARISON: Chest radiographs from same day CLINICAL INDICATION: Male, 49 years old with history of central line placement; [facility] TECHNIQUE: XR chest 1V portable Frontal view of the chest. FINDINGS: Lungs/Pleura: Multifocal airspace opacities. No evidence of pneumothorax or pleural effusion. Pulmonary vascularity: Unremarkable. Heart/mediastinum: Cardiomediastinal silhouette is unremarkable. Musculoskeletal: No acute osseous pathology. Other findings: None Lines/Tubes:Right internal jugular central venous catheter with distal tip at the cavoatrial junction . Right PICC with tip in satisfactory position. IMPRESSION: 1. Right central venous catheter without evidence of pneumothorax. 2. Multifocal airspace opacities concerning for pneumonia. [facility], , 02/13/2025 12:57 AM
[2025-02-13] MEDS: VASOPRESSIN 60 UNIT in SODIUM CHLORIDE 0.9% 150 ML IV SCH (01:03)
--- NOTE | 2025-02-13 02:22 | ED ---
Medical Decision Making - Medical Decision Making I was called by ICU staff that patient had a postintubation pneumothorax. Etiology of the pneumothorax is unclear however likely could be complication from central venous catheter line. Nonetheless I was requested by ICU staff to place chest tube. Thora vent was placed. Please see procedure note for further detail. - Lab Data Result diagrams: 02/12/25 23:04 02/13/25 01:12 Lab Results 02/04/25 02/04/25 02/04/25 Range/Units 16:24 16:24 16:24 WBC 8.5 (3.8-10.6) k/uL RBC 4.22 L (4.30-5.90) m/uL Hgb 9.7 L (13.0-17.5) gm/dL Hct 33.7 L (39.0-53.0) % MCV 79.8 L (80.0-100.0) fL MCH 23.1 L (25.0-35.0) pg MCHC 28.9 L (31.0-37.0) g/dL RDW 19.3 H (11.5-15.5) % Plt Count 126 L (150-450) k/uL MPV 9.9 Neutrophils % 77 % Lymphocytes % 15 % Monocytes % 4 % Eosinophils % 1 % Basophils % 0 % Neutrophils # 6.5 (1.3-7.7) k/uL Lymphocytes # 1.3 (1.0-4.8) k/uL Monocytes # 0.4 (0-1.0) k/uL Eosinophils # 0.1 (0-0.7) k/uL Basophils # 0.0 (0-0.2) k/uL Hypochromasia Marked Anisocytosis Slight Microcytosis Slight PT 19.5 H (10.0-12.5) sec INR 1.9 H (<1.2) APTT 30.5 H (22.0-30.0) sec Sodium 140 (137-145) mmol/L Potassium 2.3 L* (3.5-5.1) mmol/L Chloride 106 (98-107) mmol/L Carbon Dioxide 27 (22-30) mmol/L Anion Gap 7 mmol/L BUN 6 L (9-20) mg/dL Creatinine 0.49 L (0.66-1.25) mg/dL Est GFR (CKD-EPI)AfAm >90 (>60 ml/min/1.73 sqM) Est GFR (CKD-EPI)NonAf >90 (>60 ml/min/1.73 sqM) Glucose 104 H (74-99) mg/dL Plasma Lactic Acid Rene (0.7-2.0) mmol/L Calcium 7.0 L (8.4-10.2) mg/dL Magnesium 1.8 (1.6-2.3) mg/dL Total Bilirubin 0.5 (0.2-1.3) mg/dL AST 131 H (17-59) U/L ALT 46 (4-49) U/L Alkaline Phosphatase 325 H (38-126) U/L Total Protein 5.6 L (6.3-8.2) g/dL Albumin 1.8 L (3.5-5.0) g/dL Influenza Type A (PCR) (Not Detectd) Influenza Type B (PCR) (Not Detectd) RSV (PCR) (Not Detectd) SARS-CoV-2 (PCR) (Not Detectd) 02/04/25 02/04/25 Range/Units 16:24 16:29 WBC (3.8-10.6) k/uL RBC (4.30-5.90) m/uL Hgb (13.0-17.5) gm/dL Hct (39.0-53.0) % MCV (80.0-100.0) fL MCH (25.0-35.0) pg MCHC (31.0-37.0) g/dL RDW (11.5-15.5) % Plt Count (150-450) k/uL MPV Neutrophils % % Lymphocytes % % Monocytes % % Eosinophils % % Basophils % % Neutrophils # (1.3-7.7) k/uL Lymphocytes # (1.0-4.8) k/uL Monocytes # (0-1.0) k/uL Eosinophils # (0-0.7) k/uL Basophils # (0-0.2) k/uL Hypochromasia Anisocytosis Microcytosis PT (10.0-12.5) sec INR (<1.2) APTT (22.0-30.0) sec Sodium (137-145) mmol/L Potassium (3.5-5.1) mmol/L Chloride (98-107) mmol/L Carbon Dioxide (22-30) mmol/L Anion Gap mmol/L BUN (9-20) mg/dL Creatinine (0.66-1.25) mg/dL Est GFR (CKD-EPI)AfAm (>60 ml/min/1.73 sqM) Est GFR (CKD-EPI)NonAf (>60 ml/min/1.73 sqM) Glucose (74-99) mg/dL Plasma Lactic Acid Rene 1.1 (0.7-2.0) mmol/L Calcium (8.4-10.2) mg/dL Magnesium (1.6-2.3) mg/dL Total Bilirubin (0.2-1.3) mg/dL AST (17-59) U/L ALT (4-49) U/L Alkaline Phosphatase (38-126) U/L Total Protein (6.3-8.2) g/dL Albumin (3.5-5.0) g/dL Influenza Type A (PCR) Detected A (Not Detectd) Influenza Type B (PCR) Not Detected (Not Detectd) RSV (PCR) Not Detected (Not Detectd) SARS-CoV-2 (PCR) Not Detected (Not Detectd) Disposition Clinical Impression: Dehydration, Hypokalemia Disposition: ADMITTED IP TO THIS [facility] Condition: Stable Procedures - Chest Tube Insertion Consent Obtained: emergent situation Side of Procedure: right Indication: Pneumothorax Placed on monitor/pulse oximetry: Yes Site Prep: Chloroprep Insertion Site: Other (thoravent, 2nd IC space) Open into Pleural Space Using: Other Tube Size ([place]): Other (thoravent kit) Returns: Air Sutured in Place: Yes Type of Suture: Nylon Attached to Suction: Yes Type of Suction: Pleuravac Repeat X-ray Results: Lung Inflated Patient Tolerated Procedure: well
--- NOTE | 2025-02-13 02:40 | XR ---
EXAM: XR Chest, 1 View CLINICAL HISTORY: 2 placement TECHNIQUE: Frontal view of the chest. COMPARISON: 0119 hrs. FINDINGS: Lungs: Diffuse patchy to confluent airspace opacities predominantly in the perihilar regions and upper lobes. Subsegmental changes also noted in the infrahilar regions. Pleural space: Interval resolution of the right-sided pneumothorax. Heart: The cardiac silhouette is that to be within normal limits. Mediastinum: The mediastinal contours are less prominent. No tracheal deviation. Bones/joints: Unremarkable. No acute fracture. Tubes, lines and devices: There has been interval placement of a small caliber right-sided chest tube. Interval intubation with the endotracheal tube approximately 2.2 cm from the nik. Nasogastric tube tip in the stomach. A right internal jugular approach central venous catheter is noted with the tip in the right atrium. Upper abdomen: Incidental biliary stent the common bile duct in the right upper quadrant. IMPRESSION: 1. There has been interval placement of a small caliber right-sided chest tube. Interval resolution of the right-sided pneumothorax. 2. Interval intubation with the endotracheal tube approximately 2.2 cm from the nik. Remaining support tubes and lines, as noted above.
[2025-02-13 03:25] LABS: Glucose,Whole Blood 143 mg/dL (70-110)
--- NOTE | 2025-02-13 04:00 | XR ---
EXAM: XR Chest, 1 View CLINICAL HISTORY: thoravent TECHNIQUE: Frontal view of the chest. COMPARISON: 0119 hrs. FINDINGS: Lungs: Diffuse patchy to confluent airspace opacities predominantly in the perihilar regions and upper lobes. Subsegmental changes also noted in the infrahilar regions. Pleural space: Interval resolution of the right-sided pneumothorax. Heart: The cardiac silhouette is that to be within normal limits. Mediastinum: The mediastinal contours are less prominent. No tracheal deviation. Bones/joints: Unremarkable. No acute fracture. Tubes, lines and devices: There has been interval placement of a small caliber right-sided chest tube. Interval intubation with the endotracheal tube approximately 2.2 cm from the nik. Nasogastric tube tip in the stomach. A right internal jugular approach central venous catheter is noted with the tip in the right atrium. Upper abdomen: Incidental biliary stent the common bile duct in the right upper quadrant. IMPRESSION: 1. There has been interval placement of a small caliber right-sided chest tube. Interval resolution of the right-sided pneumothorax. 2. Interval intubation with the endotracheal tube approximately 2.2 cm from the nik. Remaining support tubes and lines, as noted above.
[2025-02-13 05:52] LABS: VBG PH 7.32 (7.31-7.41)
[2025-02-13 06:03] LABS: ALT 22 U/L (4-49); AST 61 U/L (17-59); African American GFR (CKD) >90 (>60 ml/min/1.73 sqM); Albumin 1.4 g/dL (3.5-5.0); Albumin/Globulin Ratio 0.4; Alkaline Phosphatase 270 U/L (38-126); Anion Gap 13 mmol/L; Blood Urea Nitrogen 6 mg/dL (9-20); Calcium 6.5 mg/dL (8.4-10.2); Carbon Dioxide 13 mmol/L (22-30); Chloride 116 mmol/L (98-107); Globulin 3.5 g/dL; Glucose 145 mg/dL (74-99); Non-African American GFR(CKD) >90 (>60 ml/min/1.73 sqM); Potassium 3.3 mmol/L (3.5-5.1); Sodium 142 mmol/L (137-145); Total Bilirubin 0.7 mg/dL (0.2-1.3); Total Protein 4.9 g/dL (6.3-8.2)
[2025-02-13 06:06] LABS: Anisocytosis Moderate; Basophils % (A) 0 %; Eosinophils % (A) 0 %; HCT 34.7 % (39.0-53.0); Hypochromasia Marked; Lymphocytes # (A) 1.1 k/uL (1.0-4.8); Lymphocytes % (A) 6 %; MCH 25.8 pg (25.0-35.0); MCHC 30.3 g/dL (31.0-37.0); MCV 85.4 fL (80.0-100.0); Mean Platelet Volume 9.1; Microcytosis Slight; Monocytes # (A) 0.7 k/uL (0-1.0); Monocytes % (A) 4 %; Neutrophils # (A) 15.8 k/uL (1.3-7.7); Neutrophils % (A) 89 %; Platelet Count 264 k/uL (150-450); Poikilocytosis Moderate; RBC 4.07 m/uL (4.30-5.90); RDW 22.4 % (11.5-15.5); WBC 17.9 k/uL (3.8-10.6)
[2025-02-13] MEDS: POTASSIUM BICARBONATE/CIT AC 20 MEQ TABLET.EFF NG-TUBE SCH (06:11)
[2025-02-13 06:13] LABS: HGB 10.5 gm/dL (13.0-17.5)
--- NOTE | 2025-02-13 07:10 | XR ---
EXAMINATION TYPE: XR chest 1V portable DATE OF EXAM: 02/13/2025 CLINICAL INDICATION: Male, 49 years old with history of Tube placement, progress study. SOB. TECHNIQUE: Single AP portable semiupright view of the chest is obtained. COMPARISON: Chest x-ray from earlier today and older studies. FINDINGS: Stable endotracheal and orogastric tubes. Stable right internal jugular central venous cat heter. Stable right-sided PICC line. Stable right apical chest tube. Persistent low lung volumes with bilateral multifocal increased opacities. No pneumothorax seen curre ntly. Cardiac silhouette size stable and within normal limits. Ossific fusion at level of right shoul nicole redemonstrated. Punctate metallic density over the epigastric region is redemonstrated. IMPRESSION: Persistent low lung volumes with bilateral multifocal acute infiltrates and/or edema are redemonstrated. No significant change from most recent study earlier today. [facility], , 02/13/2025 7:08 AM
[2025-02-13] MEDS: CHLORHEXIDINE GLUCONATE 15 ML CUP MUCOUS MEM SCH (08:10)
[2025-02-13 08:49] LABS: ABG Base Excess -5.2 mmol/L; ABG HCO3 19 mmol/L (21-25); ABG Oxygen Saturation 90.1 % (94-97); ABG PCO2 32 mmHg (35-45); ABG PH 7.39 (7.35-7.45); ABG TCO2 20 mmol/L (19-24)
[2025-02-13 08:54] LABS: ABG PO2 59 mmHg (83-108)
[2025-02-13 09:14] VITALS: TEMP 98.1
[2025-02-13] MEDS: CISATRACURIUM 2 MG/ML 5 ML VIAL IV ONE (09:17)
[2025-02-13] MEDS: CISATRACURIUM 200 MG in SODIUM CHLORIDE 0.9% 180 ML IV SCH (09:40)
--- NOTE | 2025-02-13 09:44 | P.PN ---
Subjective Progress Note Date: 02/13/25 Yaakov Mora, is a 49-year-old male, resident of a [facility]dc, who presented to [facility] emergency room with a chief complaint of mental status changes, he was recently admitted to [facility] with urinary tract infection and sepsis, he returned to [facility], however he started having worsening mental status changes with hallucinations, chest x-ray done in the emergency room revealed evidence of bilateral infiltrates suggestive of pneumonia, he also had severe electrolyte imbalance with potassium of 2.3 and low magnesium, he was transferred to [facility] emergency room for further evaluation and treatment. He was evaluated in the emergency room vital examination on presentation revealed a temperature of 97.4 pulse 70 respiration 18 blood pressure 89/52 pulse ox 93% on room air Laboratory data revealed a white blood count of 8.5 hemoglobin 9.7 platelet count 126 sodium 140 potassium 2.3 BUN 6 creatinine 0.49 AST 131 alkaline p hosphatase 325, influenza A PCR was positive, magnesium 1.5 Testing in the emergency room revealed, chest x-ray revealed right-sided PICC line with distal tip at the cavoatrial junction, low lung volumes without definitive airspace disease. Patient was admitted to medical floor for further evaluation and treatment On 02/06/2025 patient was seen and examined on the medical floor, initially patient was unresponsive, and having some shaking movement in extremities, subsequently patient was more alert responsive, confused in no apparent distress. His vital exam revealed a temperature of 100.1 pulse 108 respiration 20 blood pressure 103/68 pulse ox 92% on room air, labs are still pending potassium is up to 3.5 On 02/07/2025 patient was seen and examined on the medical floor he is alert and oriented in no apparent distress his mental status has improved significantly there is no fever or chills no headache or dizziness no chest pain no shortness of breath no cough no nausea or vomiting no abdominal pain no diarrhea and no urinary symptoms. Input from neurology reviewed. Infectious disease following On 02/08/2025 patient was seen and examined on the medical floor he is alert and oriented in no apparent distress there is no fever or chills no headache or dizziness no chest pain no shortness of breath no cough no nausea or vomiting no abdominal pain no diarrhea and no urinary symptoms. Currently he is maintained on cefepime, infectious disease are following On 02/09/2025 patient was seen and examined on the medical floor he is alert and oriented x 3 in no distress, he denies any symptoms at this time there is no fever or chills no headache or dizziness no chest pain no shortness of breath no cough no nausea or vomiting no abdominal pain no diarrhea and no urinary symptoms, his temperature is 98.4 pulse 87 respiration 18 blood pressure 94/68 pulse ox 95% on room air white blood count is 12.4 hemoglobin 8.5 platelet count 227 sodium 146 potassium 3.1 chloride 116 BUN 3.5 creatinine 0.6 patient remains on IV cefepime infectious disease following On 02/10/2025 patient was seen and examined on the medical floor he is alert and oriented x 3 in no distress, he denies any symptoms at this time there is no fever or chills no headache or dizziness no chest pain no shortness of breath no cough no nausea or vomiting no abdominal pain no diarrhea and no urinary symptoms, patient remains on IV cefepime infectious disease following. On 02/11/2025 patient was seen and examined on the medical floor he is alert and oriented in no apparent distress he denies any complaints there is no fever or chills no headache or dizziness no chest pain no shortness of breath no cough no nausea or vomiting no abdominal pain no diarrhea no urinary symptoms. Blood count is improving, he remains on IV cefepime, infectious disease following. Will continue to follow. On 02/12/2025 patient was seen and examined on the medical floor he is alert and oriented in no apparent distress, he denies any symptoms at this time, vital examination reveals a temperature of 98.3 pulse 93 respiration 18 blood pressure 95/55 sodium 141 potassium 3.7 chloride 115 CO2 21 BUN 5 creatinine 0.59. Patient remains on IV cefepime infectious disease following. On 02/13/2025 patient was transferred to the ICU last night due to decreased mentation and hypotension. Upon arrival patient was intubated and started on vasopressors. Patient is currently maxed out on vasopressors and blood pressure remains critically low. Critical care team at bedside attempting femoral line placement. Patient has a public guardian and has been informed of declining status. CODE STATUS has been changed to no code Objective - Vital Signs Vital signs: Vital Signs Temp 98.9 F 02/13/25 04:21 Pulse 135 H 02/13/25 07:45 Resp 23 02/13/25 07:45 BP 74/46 02/13/25 07:45 Pulse Ox 97 02/13/25 07:45 FiO2 100 02/13/25 08:55 Intake & Output 02/12/25 02/13/25 02/13/25 18:59 06:59 18:59 Intake Total 3834.650 575.490 Output Total 1100 315 55 Balance -1100 3519.650 520.490 Weight 84 kg Intake: IV 2450 303 0.9% at 3cc/hr (a-line) 3 Cefepime 2 gm In Sodium 100 Chloride 0.9% 100 ml @ 25 mls/hr IVPB Q8HR ELIA Rx# :[id number] Dextrose 5% in Water 1, 450 200 000 ml @ 100 mls/hr IV . [id number] ELIA with Sodium Bicarb (1 Meq/ml) 150 ml Rx#:[id number] Sodium Chloride 0.9% 1, 2000 000 ml @ 999 mls/hr IV Q65M [facility] Rx#:[id number] Intake, IV Titration 255.650 212.490 Amount Norepinephrine 8 mg In 217.250 186.072 Sodium Chloride 0.9% 250 ml @ 0.03 MCG/KG/MIN 4. 213 mls/hr IV .Q24H [facility] Rx#:[id number] Vasopressin 60 unit In 8.644 26.418 Sodium Chloride 0.9% 150 ml @ 0.04 UNITS/MIN 6.12 mls/hr IV .Q24H [facility] Rx#: [id number] propofoL 1,000 mg In 29.756 Empty Bag 1 bag @ 15 MCG/ KG/MIN 6.532 mls/hr IV . [id number] [facility] Rx#:[id number] Blood Product 1129 Rc Pheresis 2 As3 Unit 281 [id number] Rc Pheresis 2 As3 Unit 288 [id number] Other 60 Output: Urine 1100 315 55 Other: Voiding Method External Catheter Indwelling Catheter # Bowel Movements 0 - Exam Patient transferred to the ICU intubated on mechanical ventilation HEENT head normocephalic and atraumatic Neck is supple no JVD no goiter no lymphadenopathy no carotid bruit Chest examination reveals a scattered crackles bilaterally no wheezing Cardiac exam reveals regular heart sounds S1 and S2 no gallops no murmurs Abdomen is soft nontender no organomegaly with normal bowel sounds Extremity exam reveals no edema no cyanosis or clubbing, there is severe joint deformity in hands - Labs CBC & Chem 7: 02/13/25 05:35 02/13/25 05:35 Labs: Abnormal Lab Results - Last 24 Hours (Table) 02/12/25 02/12/25 02/12/25 Range/Units 15:47 23:04 23:04 WBC 12.1 H (3.8-10.6) k/uL RBC 3.55 L 2.40 L (4.30-5.90) m/uL Hgb 8.7 L 6.1 L* D (13.0-17.5) gm/dL Hct 30.2 L 19.7 L* (39.0-53.0) % MCH 24.5 L (25.0-35.0) pg MCHC 28.9 L 30.8 L (31.0-37.0) g/dL RDW 23.5 H 23.8 H (11.5-15.5) % Neutrophils # (1.3-7.7) k/uL Lymphocytes # 0.7 L (1.0-4.8) k/uL ABG pCO2 (35-45) mmHg ABG pO2 (83-108) mmHg ABG HCO3 (21-25) mmol/L ABG O2 Saturation (94-97) % VBG pCO2 (37-51) mmHg VBG HCO3 (24-28) mmol/L Hemoglobin (13.0-17.5) gm/dL Potassium 2.9 L (3.5-5.1) mmol/L Chloride 128 H (98-107) mmol/L Carbon Dioxide 8 L* (22-30) mmol/L BUN 4 L (9-20) mg/dL Creatinine 0.50 L (0.66-1.25) mg/dL Glucose 58 L (74-99) mg/dL POC Glucose (mg/dL) (70-110) mg/dL Calcium 4.6 L* (8.4-10.2) mg/dL Magnesium 0.9 L* (1.6-2.3) mg/dL AST (17-59) U/L Alkaline Phosphatase (38-126) U/L Total Protein (6.3-8.2) g/dL Albumin (3.5-5.0) g/dL Crossmatch 02/12/25 02/12/25 02/13/25 Range/Units 23:04 23:57 03:23 WBC (3.8-10.6) k/uL RBC (4.30-5.90) m/uL Hgb (13.0-17.5) gm/dL Hct (39.0-53.0) % MCH (25.0-35.0) pg MCHC (31.0-37.0) g/dL RDW (11.5-15.5) % Neutrophils # (1.3-7.7) k/uL Lymphocytes # (1.0-4.8) k/uL ABG pCO2 (35-45) mmHg ABG pO2 (83-108) mmHg ABG HCO3 (21-25) mmol/L ABG O2 Saturation (94-97) % VBG pCO2 22 L (37-51) mmHg VBG HCO3 14 L (24-28) mmol/L Hemoglobin (13.0-17.5) gm/dL Potassium (3.5-5.1) mmol/L Chloride (98-107) mmol/L Carbon Dioxide (22-30) mmol/L BUN (9-20) mg/dL Creatinine (0.66-1.25) mg/dL Glucose (74-99) mg/dL POC Glucose (mg/dL) 143 H (70-110) mg/dL Calcium (8.4-10.2) mg/dL Magnesium (1.6-2.3) mg/dL AST (17-59) U/L Alkaline Phosphatase (38-126) U/L Total Protein (6.3-8.2) g/dL Albumin (3.5-5.0) g/dL Crossmatch See Detail 02/13/25 02/13/25 02/13/25 Range/Units 05:35 05:35 05:35 WBC 17.9 H (3.8-10.6) k/uL RBC 4.07 L (4.30-5.90) m/uL Hgb 10.5 L D (13.0-17.5) gm/dL Hct 34.7 L (39.0-53.0) % MCH (25.0-35.0) pg MCHC 30.3 L (31.0-37.0) g/dL RDW 22.4 H (11.5-15.5) % Neutrophils # 15.8 H (1.3-7.7) k/uL Lymphocytes # (1.0-4.8) k/uL ABG pCO2 (35-45) mmHg ABG pO2 (83-108) mmHg ABG HCO3 (21-25) mmol/L ABG O2 Saturation (94-97) % VBG pCO2 30 L (37-51) mmHg VBG HCO3 15 L (24-28) mmol/L Hemoglobin (13.0-17.5) gm/dL Potassium 3.3 L (3.5-5.1) mmol/L Chloride 116 H (98-107) mmol/L Carbon Dioxide 13 L (22-30) mmol/L BUN 6 L (9-20) mg/dL Creatinine (0.66-1.25) mg/dL Glucose 145 H (74-99) mg/dL POC Glucose (mg/dL) (70-110) mg/dL Calcium 6.5 L (8.4-10.2) mg/dL Magnesium (1.6-2.3) mg/dL AST 61 H (17-59) U/L Alkaline Phosphatase 270 H (38-126) U/L Total Protein 4.9 L (6.3-8.2) g/dL Albumin 1.4 L (3.5-5.0) g/dL Crossmatch 02/13/25 02/13/25 Range/Units 05:35 08:41 WBC (3.8-10.6) k/uL RBC (4.30-5.90) m/uL Hgb (13.0-17.5) gm/dL Hct (39.0-53.0) % MCH (25.0-35.0) pg MCHC (31.0-37.0) g/dL RDW (11.5-15.5) % Neutrophils # (1.3-7.7) k/uL Lymphocytes # (1.0-4.8) k/uL ABG pCO2 32 L (35-45) mmHg ABG pO2 59 L* (83-108) mmHg ABG HCO3 19 L (21-25) mmol/L ABG O2 Saturation 90.1 L (94-97) % VBG pCO2 (37-51) mmHg VBG HCO3 (24-28) mmol/L Hemoglobin 10.0 L (13.0-17.5) gm/dL Potassium (3.5-5.1) mmol/L Chloride (98-107) mmol/L Carbon Dioxide (22-30) mmol/L BUN (9-20) mg/dL Creatinine (0.66-1.25) mg/dL Glucose (74-99) mg/dL POC Glucose (mg/dL) (70-110) mg/dL Calcium (8.4-10.2) mg/dL Magnesium 2.4 H (1.6-2.3) mg/dL AST (17-59) U/L Alkaline Phosphatase (38-126) U/L Total Protein (6.3-8.2) g/dL Albumin (3.5-5.0) g/dL Crossmatch Assessment and Plan Plan: Hypotension and septic shock requiring mechanical ventilation and vasopressors Acute influenza A infection Dehydration with hypotension Evidence of urinary tract infection with sepsis urine culture positive for Pseudomonas aeruginosa Severe electrolyte imbalance with hypokalemia and hypomagnesemia Acute mental status changes Recent history of common bile duct calculus Recent admission with urinary tract infection and sepsis Underlying history of physical debility, patient is bedridden Underlying history of anemia Underlying history of depression Underlying history of benign prostatic hypertrophy Underlying history of restless leg syndrome Remote history of vitamin D deficiency with history of rickets, with significant bone deformity. At this time patient was seen and examined Home medications reviewed and reordered On 02/13/2025 patient was intubated started on mechanical ventilation and vasopressors Will obtain records from [facility] Patient has a public guardian notified of declining status
[2025-02-13] MEDS ORDERED: MORPHINE SULFATE 2 MG/ML SYRINGE IVP PRN (11:19)
[2025-02-13] MEDS ORDERED: ATROPINE OPHTH SOLN 1% 5ML BTL SUBLINGUAL PRN (11:19)
[2025-02-13] MEDS: MORPHINE SULFATE 4 MG/ML SYRINGE IVP PRN (11:42)
[2025-02-13] MEDS: LORazepam 1 MG/0.5 ML VIAL IV PRN (11:42)
[2025-02-13] MEDS ORDERED: SCOPOLAMINE 1 MG/72 HR PATCH TRANSDERM SCH (12:00)
[2025-02-13 12:15] VITALS: BP 51/32
[2025-02-13 12:26] VITALS: PULSE 0; RESP 0
--- NOTE | 2025-02-13 12:53 | P.CNPUL ---
History of Present Illness Consult date: 02/13/25 Requesting physician: Radha Peacock Reason for consult: other (Acute hypoxic respiratory failure, hypotension, sepsis and septic shock) Chief complaint: Mental status change History of present illness: This is a 49-year-old white male, [place], patient has been mentally challenged, debilitated, multiple contractures, with significant deformities in upper and lower extremities, patient was admitted to [facility] back on 02/04/2025. Patient was admitted with altered mental status which was felt to be related to acute influenza A infection, dehydration, hypotension, severe electrolyte imbalance, and recurrent urinary tract infections with sepsis secondary to Pseudomonas. Patient also had a recent common bile duct calculus requiring surgery. All along the patient has been on antibiotics, managed mostly by Dr. Peacock and by Dr. Pollock. Last night the 18 was called to see the patient because of hypotension and decreased mentation. I was notified about this patient last night, recommended immediate transfer to the ICU and start patient on fluid boluses, and without improvement he ended up on pressors including norepinephrine and vasopressin with poor response. Patient had a picture of septic shock, he required intubation and mechanical ventilation. ER physician saw the patient for central line placement, he was able to place a right IJ central line however the patient developed iatrogenic right-sided pneumothorax requiring Thora vent placement by the ER physician. I saw the patient this morning, remains quite ill, hypotensive, not improving in spite of pressors and in spite of multiple fluid boluses and in spite of bicarb given IV push and IV infusion. I was able to place a left femoral arterial line for hemodynamic monitoring, and in the meantime I discussed his condition with the legal guardian CODE STATUS was changed to DNR, the legal guardian was made aware of the severe prognosis and the overall situation and the patient is ext remely ill, chances of recovery is extremely poor/nail. Hence CODE STATUS was changed to DNR, and the plan was the legal guardian will discuss his condition with his mother, will likely change to comfort care measures considering the gravity of the situation at this point. And I think that would be very reasonable. Labs reviewed his ABG on 100% FiO2 tidal volume 400 rate of 20 and PEEP of 5 showed a pO2 of 59 pCO2 32 pH of 7.39. Hence I recommended patient goes on Nimbex, PEEP was increased up to 8, and respiratory rate increased up to 26. WBC count is 17.9 hemoglobin 10.5, basic metabolic profile showed low bicarb of 13, anion gap 13, blood sugar 145. Chest x-ray showed low lung volum es with bilateral multifocal infiltrates and/or edema. Review of Systems ROS unobtainable: due to endotracheal tube, due to mental status Past Medical History Past Medical History: GERD/Reflux, Musculoskeletal Disorder, Osteoarthritis (OA), Skin Disorder Additional Past Medical History / Comment(s): poor hygiene, connective tissue disorder-unknown type per patient, vitamin D deficiency/Rickets, acute pancreatitis, cholelithiasis, psoriasis, deformities and contractures from rickets, flexion deformity, osteoarthritis, essential hypertension, major depressive disorder, iron deficiency anemia, non pressure chronic ulcer of skin, chronic idopathic constipation, hydronephrosis with renal and ureeral calculous, uti History of Any Multi-Drug Resistant Organisms: None Reported Date of last positivie culture/infection: 12/27/21 MDRO Source:: Urine Past Surgical History: Cholecystectomy Past Anesthesia/Blood Transfusion Reactions: No Reported Reaction Past Psychological History: Anxiety, Depression Additional Psychological History / Comment(s): Pt is bedbound. He lives at [facility] since 2017. Smoking Status: Never smoker Past Alcohol Use History: None Reported Past Drug Use History: None Reported - Past Family History Father Additional Family Medical History / Comment(s): bipolar Mother Family Medical History: COPD, Deep Vein Thrombosis (DVT), Hypertension Medications and Allergies Home Medications Medication Instructions Recorded Confirmed Type bisacodyL [Bisacodyl] 5 mg PO DAILY 09/03/21 02/04/25 History polyethylene glycoL 3350 [Miralax] 17 gm PO HS 12/23/22 02/04/25 History Oxybutynin Xl [Ditropan XL] 5 mg PO DAILY@0800 01/14/23 02/04/25 History Acetaminophen [Tylenol Arthritis] 650 mg PO Q6H PRN 02/24/23 02/04/25 History bisacodyL [Dulcolax] 10 mg RECTAL DAILY PRN 02/24/23 02/04/25 History ALPRAZolam [Xanax] 0.25 mg PO DAILY PRN 02/04/25 02/04/25 History ALPRAZolam [Xanax] 0.25 mg PO TUFR@0800 02/04/25 02/04/25 History Amino Acids/Protein Hydrolys 30 ml PO BID 02/04/25 02/04/25 History [Pro-Stat Awc Liquid] Apixaban [Eliquis] 2.5 mg PO BID 02/04/25 02/04/25 History Baclofen 10 mg PO TID@0800,1200,1800 02/04/25 02/04/25 History Ergocalciferol [Vitamin D2 (1250 1,250 mcg PO MO@0800 02/04/25 02/04/25 History Mcg = 42456 Iu)] Escitalopram [Lexapro] 10 mg PO DAILY 02/04/25 02/04/25 History Ferrous Sulfate [Feosol] 325 mg PO DAILY 02/04/25 02/04/25 History Fluconazole [Diflucan] 400 mg PO DAILY@0800 02/04/25 02/04/25 History Magic Cup 1 dose PO BID 02/04/25 02/04/25 History Menthol-Zinc Oxide Oint 1 applic TOPICAL QID 02/04/25 02/04/25 History [Calmoseptine Ointment] Metoprolol Tartrate [Lopressor] 25 mg PO BID 02/04/25 02/04/25 History Multivitamins, Thera [Multivitamin 1 tab PO HS 02/04/25 02/04/25 History (formulary)] Naloxone HCl [Narcan] 4 mg NASAL DIRECTED PRN 02/04/25 02/04/25 History Omeprazole 20 mg PO DAILY 02/04/25 02/04/25 History Ondansetron Odt [Zofran Odt] 4 mg PO Q6H PRN 02/04/25 02/04/25 History Potassium Chloride ER [K-Dur 20] 20 meq PO DAILY@0800 02/04/25 02/04/25 History Tamsulosin [Flomax] 0.4 mg PO DAILY 02/04/25 02/04/25 History cefTRIAXone [Rocephin] 1 gm IVPB HS@2300 02/04/25 02/04/25 History oxyCODONE HCL [OxyIR] 5 mg PO Q6H PRN 02/04/25 02/04/25 History rOPINIRole HCL [Requip XL] 2 mg PO HS 02/04/25 02/04/25 History Allergies Allergy/AdvReac Type Severity Reaction Status Date / Time lanolin Allergy Unknown Verified 02/04/25 18:28 Physical Exam Vitals: Vital Signs Temp Pulse Pulse Pulse Pulse Pulse Resp 02/13/25 12:22 0 L 0 L 02/13/25 12:00 137 H 02/13/25 11:45 134 H 25 H 02/13/25 11:30 133 H 29 H 02/13/25 11:15 131 H 37 H 02/13/25 11:00 133 H 44 H 02/13/25 10:45 128 H 33 H 02/13/25 10:30 125 H 33 H 02/13/25 10:15 125 H 40 H 02/13/25 10:00 123 H 38 H 02/13/25 09:45 122 H 32 H 02/13/25 09:30 118 H 39 H 02/13/25 09:15 120 H 38 H 02/13/25 09:05 117 H 39 H 02/13/25 09:00 118 H 33 H 02/13/25 08:55 116 H 36 H 02/13/25 08:50 118 H 34 H 02/13/25 08:45 120 H 34 H 02/13/25 08:40 123 H 22 02/13/25 08:35 120 H 33 H 02/13/25 08:30 122 H 31 H 02/13/25 08:25 122 H 34 H 02/13/25 08:20 130 H 30 H 02/13/25 08:15 130 H 33 H 02/13/25 08:10 129 H 33 H 02/13/25 08:05 133 H 33 H 02/13/25 08:00 98.1 F 137 H 25 H 02/13/25 07:55 137 H 30 H 02/13/25 07:50 137 H 24 02/13/25 07:45 135 H 23 02/13/25 07:30 134 H 34 H 02/13/25 07:15 135 H 22 02/13/25 07:00 131 H 25 H 02/13/25 06:45 128 H 29 H 02/13/25 06:30 134 H 02/13/25 06:15 135 H 23 02/13/25 06:00 134 H 20 02/13/25 05:45 130 H 20 02/13/25 05:30 129 H 25 H 02/13/25 05:15 126 H 26 H 02/13/25 05:00 130 H 26 H 02/13/25 04:45 128 H 23 02/13/25 04:30 126 H 22 02/13/25 04:21 98.9 F 120 H 20 02/13/25 04:15 126 H 27 H 02/13/25 04:04 02/13/25 04:00 98.1 F 128 H 26 H 02/13/25 03:45 126 H 22 02/13/25 03:30 128 H 28 H 02/13/25 03:15 130 H 17 02/13/25 03:03 133 H 20 02/13/25 03:00 131 H 20 02/13/25 02:45 135 H 20 02/13/25 02:43 98.1 F 120 H 20 02/13/25 02:34 98.6 F 137 H 20 02/13/25 02:31 98.6 F 137 H 20 02/13/25 02:30 138 H 22 02/13/25 02:15 142 H 21 02/13/25 02:00 149 H 20 02/13/25 01:45 149 H 21 02/13/25 01:35 02/13/25 01:31 142 H 20 02/13/25 01:30 135 H 20 02/13/25 01:15 137 H 20 02/13/25 01:11 98.0 F 134 H 20 02/13/25 01:00 134 H 22 02/13/25 00:55 02/13/25 00:45 133 H 17 02/13/25 00:30 134 H 16 02/13/25 00:15 134 H 16 02/13/25 00:05 02/13/25 00:00 115 H 15 02/12/25 23:59 115 H 18 02/12/25 22:10 133 H 02/12/25 21:35 133 H 02/12/25 20:00 02/12/25 19:33 99.1 F 130 H 15 02/12/25 16:22 138 H 02/12/25 14:00 98.4 F 146 H 20 BP BP Pulse Ox FiO2 02/13/25 12:22 02/13/25 12:00 51/32 03/23/25 11:45 64/40 92 L 03/23/25 11:30 62/37 91 L 02/13/25 11:15 57/33 91 L 100 02/13/25 11:00 58/40 90 L 100 02/13/25 10:45 60/41 93 L 02/13/25 10:30 57/27 94 L 02/13/25 10:15 54/38 95 02/13/25 10:00 95 100 02/13/25 09:45 95 02/13/25 09:30 95 02/13/25 09:15 96 02/13/25 09:05 97 02/13/25 09:00 58/32 98 100 02/13/25 08:55 97 100 02/13/25 08:50 95 02/13/25 08:45 95 02/13/25 08:40 94 L 02/13/25 08:35 95 02/13/25 08:30 59/36 97 02/13/25 08:25 98 02/13/25 08:20 96 02/13/25 08:15 68/42 97 02/13/25 08:10 98 02/13/25 08:05 70/40 99 02/13/25 08:00 74/52 99 100 02/13/25 07:55 70/48 98 02/13/25 07:50 74/40 98 100 02/13/25 07:45 74/46 97 02/13/25 07:30 67/42 98 02/13/25 07:15 74/40 98 02/13/25 07:00 69/46 97 02/13/25 06:45 88/48 99 02/13/25 06:30 75/46 97 02/13/25 06:15 73/57 97 02/13/25 06:00 72/51 99 02/13/25 05:45 70/50 99 02/13/25 05:30 77/46 100 02/13/25 05:15 74/46 100 02/13/25 05:00 73/49 100 02/13/25 04:45 73/49 100 02/13/25 04:30 75/50 100 03 04:21 75/50 02/13/25 04:15 75/50 100 02/13/25 04:04 100 02/13/25 04:00 83/56 100 100 03/23/25 03:45 82/52 100 02/13/25 03:30 81/52 100 02/13/25 03:15 80/53 100 02/13/25 03:03 82/54 02/13/25 03:00 78/48 100 5 02/13/25 02:45 74/52 100 02/13/25 02:43 83/56 02/13/25 02:34 74/52 98 02/13/25 02:31 74/52 98 02/13/25 02:30 79/52 100 02/13/25 02:15 79/52 100 02/13/25 02:00 97/59 98 02/13/25 01:45 104/61 99 02/13/25 01:35 100 02/13/25 01:31 104/61 100 02/13/25 01:30 112/77 96 02/13/25 01:15 96/61 100 02/13/25 01:11 96/61 99 02/13/25 01:00 111/64 100 02/13/25 00:55 100 02/13/25 00:45 108/71 99 02/13/25 00:30 60/45 99 02/13/25 00:15 98/48 100 02/13/25 00:05 100 02/13/25 00:00 67/32 100 02/12/25 23:59 100 02/12/25 22:10 65/43 02/12/25 21:35 02/12/25 20:00 103/66 02/12/25 19:33 83/50 92 L 02/12/25 16:22 91/55 02/12/25 14:00 91 L Intake and Output 02/12/25 02/13/25 02/13/25 22:59 06:59 14:59 Intake Total 3834.650 1189.376 Output Total 200 315 560 Balance -200 3519.650 629.376 Intake: IV 2450 512 0.9% at 3cc/hr (a-line) 12 Cefepime 2 gm In Sodium 100 Chloride 0.9% 100 ml @ 25 mls/hr IVPB Q8HR [facility] Rx# :[id number] Dextrose 5% in Water 1, 450 400 000 ml @ 100 mls/hr IV . [id number] [facility] with Sodium Bicarb (1 Meq/ml) 150 ml Rx#:[id number] Sodium Chloride 0.9% 1, 2000 000 ml @ 999 mls/hr IV Q65M [facility] Rx#:[id number] Intake, IV Titration 255.650 617.376 Amount Norepinephrine 8 mg In 217.250 486.670 Sodium Chloride 0.9% 250 ml @ 0.03 MCG/KG/MIN 4. 213 mls/hr IV .Q24H [facility] Rx#:[id number] Vasopressin 60 unit In 8.644 55.590 Sodium Chloride 0.9% 150 ml @ 0.04 UNITS/MIN 6.12 mls/hr IV .Q24H [facility] Rx#: [id number] propofoL 1,000 mg In 29.756 75.116 Empty Bag 1 bag @ 15 MCG/ KG/MIN 6.532 mls/hr IV . [id number] [facility] Rx#:[id number] Blood Product 1129 Rc Pheresis 2 As3 Unit 281 [id number] Rc Pheresis 2 As3 Unit 288 [id number] Other 60 Output: Gastric Drainage 500 Urine 200 315 60 Other: Voiding Method External Catheter Indwelling Catheter Indwelling Catheter # Bowel Movements 0 Weight 84 kg ABP, PAP, CO, CI - Last 8 Hours Arterial Blood Pressure 77/28 Arterial Blood Pressure 81/30 Arterial Blood Pressure 89/32 Arterial Blood Pressure 90/33 Arterial Blood Pressure 87/33 Arterial Blood Pressure 92/35 Arterial Blood Pressure 89/35 Arterial Blood Pressure 92/36 Arterial Blood Pressure 89/35 Arterial Blood Pressure 88/35 Arterial Blood Pressure 87/34 Arterial Blood Pressure 89/34 Arterial Blood Pressure 81/33 Arterial Blood Pressure 79/33 Arterial Blood Pressure 80/32 Arterial Blood Pressure 88/33 Arterial Blood Pressure 89/35 Arterial Blood Pressure 82/22 Arterial Blood Pressure 94/31 General: Revealed 49-year-old white male, frail looking, chronically ill, flexion contractures of upper and lower extremities noted. Also noted to be quite edematous. HEENT: Head is atraumatic, normocephalic. Fundus not visualized. There is no scleral icterus. Mucous members are moist. Endotracheal tube and orogastric tube noted. Neck: Supple no neck masses no JVD Heart: Tachycardic, no S3 gallop, no murmur. Lungs: Crackles and rhonchi noted bilaterally. Extremities: There are contractures of the bilateral upper extremities, right greater than left. There are deformities of the fingers. Bilateral feet and legs are edematous Skin: Multiple areas of superficial lacerations with multiple dressings noted all over. Neurological, patient is sedated, on propofol, could not assess neurologically. Deep tendon reflexes: Absent throughout Psychiatric: Could not assess Results - Laboratory Findings CBC and BMP: 02/13/25 05:35 02/13/25 05:35 ABG ABG pH 7.39 (7.35-7.45) 02/13/25 08:41 ABG pCO2 32 mmHg (35-45) L 02/13/25 08:41 ABG pO2 59 mmHg (83-108) L* 02/13/25 08:41 ABG O2 Saturation 90.1 % (94-97) L 02/13/25 08:41 PT/INR, D-dimer PT 19.5 sec (10.0-12.5) H 02/04/25 16:24 INR 1.9 (<1.2) H 02/04/25 16:24 Abnormal lab findings: Abnormal Labs 02/04/25 02/04/25 02/04/25 16:24 16:24 16:24 WBC RBC 4.22 L Hgb 9.7 L Hct 33.7 L MCV 79.8 L MCH 23.1 L MCHC 28.9 L RDW 19.3 H Plt Count 126 L Immature Gran # Neutrophils # Lymphocytes # Monocytes # NRBC/100 WBC Diff Target Cells PT 19.5 H INR 1.9 H APTT 30.5 H ABG pCO2 ABG pO2 ABG HCO3 ABG O2 Saturation VBG pCO2 VBG HCO3 Hemoglobin Sodium Potassium 2.3 L* Chloride Carbon Dioxide BUN 6 L Creatinine 0.49 L BUN/Creatinine Ratio Glucose 104 H POC Glucose (mg/dL) Calcium 7.0 L Magnesium AST 131 H Alkaline Phosphatase 325 H C-Reactive Protein Total Protein 5.6 L Albumin 1.8 L Globulin Albumin/Globulin Ratio Urine Protein Urine Ketones Urine Blood Ur Leukocyte Esterase Urine RBC Urine WBC Urine Bacteria Influenza Type A (PCR) Crossmatch 02/04/25 02/05/25 02/05/25 16:29 03:17 06:40 WBC RBC Hgb Hct MCV MCH MCHC RDW Plt Count Immature Gran # Neutrophils # Lymphocytes # Monocytes # NRBC/100 WBC Diff Target Cells PT INR APTT ABG pCO2 ABG pO2 ABG HCO3 ABG O2 Saturation VBG pCO2 VBG HCO3 Hemoglobin Sodium Potassium 2.5 L* Chloride 108 H Carbon Dioxide BUN 5 L Creatinine 0.47 L BUN/Creatinine Ratio Glucose POC Glucose (mg/dL) Calcium 7.1 L Magnesium 1.5 L AST 113 H Alkaline Phosphatase 325 H C-Reactive Protein Total Protein 5.6 L Albumin 1.8 L Globulin Albumin/Globulin Ratio Urine Protein Urine Ketones Urine Blood Ur Leukocyte Esterase Urine RBC Urine WBC Urine Bacteria Influenza Type A (PCR) Detected A Crossmatch 02/05/25 02/05/25 02/05/25 13:35 14:44 19:43 WBC RBC Hgb Hct MCV MCH MCHC RDW Plt Count Immature Gran # Neutrophils # Lymphocytes # Monocytes # NRBC/100 WBC Diff Target Cells PT INR APTT ABG pCO2 ABG pO2 ABG HCO3 ABG O2 Saturation VBG pCO2 VBG HCO3 Hemoglobin Sodium Potassium 3.0 L 3.3 L Chloride Carbon Dioxide BUN Creatinine BUN/Creatinine Ratio Glucose POC Glucose (mg/dL) Calcium Magnesium AST Alkaline Phosphatase C-Reactive Protein Total Protein Albumin Globulin Albumin/Globulin Ratio Urine Protein 1+ H Urine Ketones Trace H Urine Blood Large H Ur Leukocyte Esterase Large H Urine RBC >182 H Urine WBC >182 H Urine Bacteria Occasional H Influenza Type A (PCR) Crossmatch 02/06/25 02/06/25 02/07/25 03:06 06:48 07:09 WBC 11.47 H RBC 3.71 L Hgb 8.5 L Hct 29.1 L MCV 78.4 L MCH 22.9 L MCHC 29.2 L RDW 21.9 H Plt Count Immature Gran # 0.13 H Neutrophils # 8.35 H Lymphocytes # Monocytes # NRBC/100 WBC Diff Target Cells PT INR APTT ABG pCO2 ABG pO2 ABG HCO3 ABG O2 Saturation VBG pCO2 VBG HCO3 Hemoglobin Sodium 147 H Potassium Chloride 112 H 119 H Carbon Dioxide 20 L BUN <2 L <3.5 L Creatinine 0.44 L 0.4 L BUN/Creatinine Ratio <8.75 L Glucose 118 H POC Glucose (mg/dL) Calcium 6.8 L 6.9 L Magnesium AST 98 H 73 H Alkaline Phosphatase 341 H 225 H C-Reactive Protein Total Protein 6.0 L 5.2 L Albumin 1.9 L 1.4 L Globulin 3.8 H Albumin/Globulin Ratio 0.37 L Urine Protein Urine Ketones Urine Blood Ur Leukocyte Esterase Urine RBC Urine WBC Urine Bacteria Influenza Type A (PCR) Crossmatch 02/07/25 02/08/25 02/08/25 11:03 06:18 06:18 WBC 14.6 H 11.20 H RBC 3.82 L 3.83 L Hgb 9.0 L 9.0 L Hct 31.8 L 31.1 L MCV MCH 23.5 L 23.5 L MCHC 28.2 L 28.9 L RDW 20.6 H 23.6 H Plt Count Immature Gran # 0.15 H Neutrophils # 10.7 H Lymphocytes # Monocytes # NRBC/100 WBC Diff 0.02 H Target Cells 2+ A PT INR APTT ABG pCO2 ABG pO2 ABG HCO3 ABG O2 Saturation VBG pCO2 VBG HCO3 Hemoglobin Sodium 147 H Potassium Chloride 118 H Carbon Dioxide 20.8 L BUN <3.5 L Creatinine BUN/Creatinine Ratio <5.83 L Glucose POC Glucose (mg/dL) Calcium 7.1 L Magnesium AST 80 H Alkaline Phosphatase 242 H C-Reactive Protein Total Protein 5.5 L Albumin 1.4 L Globulin 4.1 H Albumin/Globulin Ratio 0.34 L Urine Protein Urine Ketones Urine Blood Ur Leukocyte Esterase Urine RBC Urine WBC Urine Bacteria Influenza Type A (PCR) Crossmatch 02/09/25 02/09/25 02/11/25 06:58 06:58 04:57 WBC 12.40 H RBC 3.65 L 3.18 L Hgb 8.5 L 7.7 L Hct 30.5 L 25.7 L MCV MCH 23.3 L 24.2 L MCHC 27.9 L 30.0 L RDW 24.4 H 24.0 H Plt Count Immature Gran # 0.23 H 0.09 H Neutrophils # 8.18 H Lymphocytes # Monocytes # 1.05 H NRBC/100 WBC Diff 0.03 H 0.02 H Target Cells PT INR APTT ABG pCO2 ABG pO2 ABG HCO3 ABG O2 Saturation VBG pCO2 VBG HCO3 Hemoglobin Sodium 146 H Potassium 3.1 L Chloride 116 H Carbon Dioxide 21.5 L BUN <3.5 L Creatinine BUN/Creatinine Ratio <5.83 L Glucose 119 H POC Glucose (mg/dL) Calcium 7.0 L Magnesium AST 67 H Alkaline Phosphatase 245 H C-Reactive Protein Total Protein 5.5 L Albumin 1.4 L Globulin 4.1 H Albumin/Globulin Ratio 0.34 L Urine Protein Urine Ketones Urine Blood Ur Leukocyte Esterase Urine RBC Urine WBC Urine Bacteria Influenza Type A (PCR) Crossmatch 02/11/25 02/11/25 02/12/25 04:57 20:53 04:08 WBC RBC Hgb Hct MCV MCH MCHC RDW Plt Count Immature Gran # Neutrophils # Lymphocytes # Monocytes # NRBC/100 WBC Diff Target Cells PT INR APTT ABG pCO2 ABG pO2 ABG HCO3 ABG O2 Saturation VBG pCO2 VBG HCO3 Hemoglobin Sodium Potassium 2.7 A* 3.4 L Chloride 116 H 115 H Carbon Dioxide 21 L BUN 4.3 L 5 L Creatinine 0.59 L BUN/Creatinine Ratio 7.17 L Glucose POC Glucose (mg/dL) Calcium 6.8 L 6.9 L Magnesium AST 52 H Alkaline Phosphatase 192 H C-Reactive Protein 13.20 H Total Protein 4.9 L Albumin 1.3 L Globulin 3.6 H Albumin/Globulin Ratio 0.36 L Urine Protein Urine Ketones Urine Blood Ur Leukocyte Esterase Urine RBC Urine WBC Urine Bacteria Influenza Type A (PCR) Crossmatch 02/12/25 02/12/25 02/12/25 15:47 23:04 23:04 WBC 12.1 H RBC 3.55 L 2.40 L Hgb 8.7 L 6.1 L* D Hct 30.2 L 19.7 L* MCV MCH 24.5 L MCHC 28.9 L 30.8 L RDW 23.5 H 23.8 H Plt Count Immature Gran # Neutrophils # Lymphocytes # 0.7 L Monocytes # NRBC/100 WBC Diff Target Cells PT INR APTT ABG pCO2 ABG pO2 ABG HCO3 ABG O2 Saturation VBG pCO2 VBG HCO3 Hemoglobin Sodium Potassium 2.9 L Chloride 128 H Carbon Dioxide 8 L* BUN 4 L Creatinine 0.50 L BUN/Creatinine Ratio Glucose 58 L POC Glucose (mg/dL) Calcium 4.6 L* Magnesium 0.9 L* AST Alkaline Phosphatase C-Reactive Protein Total Protein Albumin Globulin Albumin/Globulin Ratio Urine Protein Urine Ketones Urine Blood Ur Leukocyte Esterase Urine RBC Urine WBC Urine Bacteria Influenza Type A (PCR) Crossmatch 02/12/25 02/12/25 02/13/25 23:04 23:57 03:23 WBC RBC Hgb Hct MCV MCH MCHC RDW Plt Count Immature Gran # Neutrophils # Lymphocytes # Monocytes # NRBC/100 WBC Diff Target Cells PT INR APTT ABG pCO2 ABG pO2 ABG HCO3 ABG O2 Saturation VBG pCO2 22 L VBG HCO3 14 L Hemoglobin Sodium Potassium Chloride Carbon Dioxide BUN Creatinine BUN/Creatinine Ratio Glucose POC Glucose (mg/dL) 143 H Calcium Magnesium AST Alkaline Phosphatase C-Reactive Protein Total Protein Albumin Globulin Albumin/Globulin Ratio Urine Protein Urine Ketones Urine Blood Ur Leukocyte Esterase Urine RBC Urine WBC Urine Bacteria Influenza Type A (PCR) Crossmatch See Detail 02/13/25 02/13/25 02/13/25 05:35 05:35 05:35 WBC 17.9 H RBC 4.07 L Hgb 10.5 L D Hct 34.7 L MCV MCH MCHC 30.3 L RDW 22.4 H Plt Count Immature Gran # Neutrophils # 15.8 H Lymphocytes # Monocytes # NRBC/100 WBC Diff Target Cells PT INR APTT ABG pCO2 ABG pO2 ABG HCO3 ABG O2 Saturation VBG pCO2 30 L VBG HCO3 15 L Hemoglobin Sodium Potassium 3.3 L Chloride 116 H Carbon Dioxide 13 L BUN 6 L Creatinine BUN/Creatinine Ratio Glucose 145 H POC Glucose (mg/dL) Calcium 6.5 L Magnesium AST 61 H Alkaline Phosphatase 270 H C-Reactive Protein Total Protein 4.9 L Albumin 1.4 L Globulin Albumin/Globulin Ratio Urine Protein Urine Ketones Urine Blood Ur Leukocyte Esterase Urine RBC Urine WBC Urine Bacteria Influenza Type A (PCR) Crossmatch 02/13/25 02/13/25 05:35 08:41 WBC RBC Hgb Hct MCV MCH MCHC RDW Plt Count Immature Gran # Neutrophils # Lymphocytes # Monocytes # NRBC/100 WBC Diff Target Cells PT INR APTT ABG pCO2 32 L ABG pO2 59 L* ABG HCO3 19 L ABG O2 Saturation 90.1 L VBG pCO2 VBG HCO3 Hemoglobin 10.0 L Sodium Potassium Chloride Carbon Dioxide BUN Creatinine BUN/Creatinine Ratio Glucose POC Glucose (mg/dL) Calcium Magnesium 2.4 H AST Alkaline Phosphatase C-Reactive Protein Total Protein Albumin Globulin Albumin/Globulin Ratio Urine Protein Urine Ketones Urine Blood Ur Leukocyte Esterase Urine RBC Urine WBC Urine Bacteria Influenza Type A (PCR) Crossmatch - Diagnostic Findings Chest x-ray: image reviewed (As noted in HPI) Assessment and Plan Assessment: Impression: Septic shock with hypotension, unresponsive to fluid boluses, unresponsive to vasopressors including norepinephrine and vasopressin Acute urinary tract infection secondary to Pseudomonas aeruginosa, on cefepime. Leukocytosis secondary to above Acute hypoxic respiratory failure secondary to sepsis and septic shock requiring intubation mechanical ventilation Severe metabolic acidosis secondary to septic shock History of vitamin D deficiency/rickets disease. 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 History of cerebral palsy Recent history of abdominal sepsis requiring surgery Severe toxic metabolic encephalopathy secondary to sepsis and septic shock Iatrogenic pneumothorax from central line placed by ER physician required Thora vent placement Medical debility Recommendation: Continue ventilatory support Continue hemodynamic support, I was able to establish a left femoral arterial line for hemodynamic monitoring Continue Thora vent to Pleur-evac and wall suction Continue antibiotics Continue GI and DVT prophylaxis Considering the overall poor prognostic picture, I discussed his condition with legal guardian over the phone, and change CODE STATUS to DNR Patient to be considered for comfort care measures. Critical care time is over 50 minutes not including the time spent on procedures. Again prognosis is extremely poor, will follow. While in the ICU Time with Patient: Greater than 30
--- NOTE | 2025-02-13 19:09 | OP ---
OPERATIVE REPORT DATE OF SERVICE : PROCEDURE PERFORMED: Placement of a left femoral arterial line. PREOPERATIVE DIAGNOSES: Acute hypoxic respiratory failure and sepsis with profound hypotension requiring multiple pressors, needed arterial line for hemodynamic monitoring. POSTOPERATIVE DIAGNOSES: Acute hypoxic respiratory failure and sepsis with profound hypotension requiring multiple pressors, needed arterial line for hemodynamic monitoring. ANESTHESIA USED: None deployed. DESCRIPTION OF PROCEDURE: The left groin was prepared in a sterile fashion. Drapes were applied. The left femoral artery was palpated, cannulated easily, a guidewire was placed, a Cook catheter was inserted over the guidewire, and the guidewire was removed. Good blood flow, good waveform. No complications. Line was secured using 3.0 silk sutures. MMODL / IJN: [id number] /
--- NOTE | 2025-02-25 09:44 | P.DS ---
Providers Date of admission: 02/04/25 17:32 Expected date of discharge: 02/13/25 Attending physician: Radha Peacock Consults: 02/04/25 17:23 Consult Physician Routine Consulting Provider: Ki Pollock Consult Reason/Comments: Recurrent infection on parenteral antibiotics Do you want consulting provider notified?: Yes 02/06/25 07:29 Consult Physician Routine Consulting Provider: Joann Moses Consult Reason/Comments: Mental status changes, involuntary movement, rule out seizures Do you want consulting provider notified?: Yes 02/12/25 14:11 Consult Physician Routine Consulting Provider: Rudy Rodriguez Consult Reason/Comments: increased agitation, refusing medication and food Do you want consulting provider notified?: Yes 02/13/25 00:00 Consult Physician Routine Consulting Provider: Duyen Carrero Consult Reason/Comments: icu management Do you want consulting provider notified?: Already Contacted Primary care physician: Radha Peacock [place] [facility] Course: Discharge diagnosis Patient Hypotension and septic shock requiring mechanical ventilation and vasopressors Acute influenza A infection Dehydration with hypotension Evidence of urinary tract infection with sepsis urine culture positive for Pseudomonas aeruginosa Severe electrolyte imbalance with hypokalemia and hypomagnesemia Acute mental status changes Recent history of common bile duct calculus Recent admission with urinary tract infection and sepsis Underlying history of physical debility, patient is bedridden Underlying history of anemia Underlying history of depression Underlying history of benign prostatic hypertrophy Underlying history of restless leg syndrome Remote history of vitamin D deficiency with history of rickets, with significant bone deformity. Hospital course Yaakov Mora, is a 49-year-old male, resident of a longterm, who presented to [facility] emergency room with a chief complaint of mental status changes, he was recently admitted to [facility] with urinary tract infection and sepsis, he returned to [facility], however he started having worsening mental status changes with hallucinations, chest x-ray done in the emergency room revealed evidence of bilateral infiltrates suggestive of pneumonia, he also had severe electrolyte imbalance with potassium of 2.3 and low magnesium, he was transferred to [facility] emergency room for further evaluation and treatment. He was evaluated in the emergency room vital examination on presentation revealed a temperature of 97.4 pulse 70 respiration 18 blood pressure 89/52 pulse ox 93% on room air Laboratory data revealed a white blood count of 8.5 hemoglobin 9.7 platelet count 126 sodium 140 potassium 2.3 BUN 6 creatinine 0.49 AST 131 alkaline phosphatase 325, influenza A PCR was positive, magnesium 1.5 Testing in the emergency room revealed, chest x-ray revealed right-sided PICC line with distal tip at the cavoatrial junction, low lung volumes without definitive airspace disease. Patient was admitted to medical floor for further evaluation and treatment On 02/06/2025 patient was seen and examined on the medical floor, initially patient was unresponsive, and having some shaking movement in extremities, subsequently patient was more alert responsive, confused in no apparent distress. His vital exam revealed a temperature of 100.1 pulse 108 respiration 20 blood pressure 103/68 pulse ox 92% on room air, labs are still pending potassium is up to 3.5 On 02/07/2025 patient was seen and examined on the medical floor he is alert and oriented in no apparent distress his mental status has improved significantly there is no fever or chills no headache or dizziness no chest pain no shortness of breath no cough no nausea or vomiting no abdominal pain no diarrhea and no urinary symptoms. Input from neurology reviewed. Infectious disease following On 02/08/2025 patient was seen and examined on the medical floor he is alert and oriented in no apparent distress there is no fever or chills no headache or dizziness no chest pain no shortness of breath no cough no nausea or vomiting no abdominal pain no diarrhea and no urinary symptoms. Currently he is maintained on cefepime, infectious disease are following On 02/09/2025 patient was seen and examined on the medical floor he is alert and oriented x 3 in no distress, he denies any symptoms at this time there is no fever or chills no headache or dizziness no chest pain no shortness of breath no cough no nausea or vomiting no abdominal pain no diarrhea and no urinary symptoms, his temperature is 98.4 pulse 87 respiration 18 blood pressure 94/68 pulse ox 95% on room air white blood count is 12.4 hemoglobin 8.5 platelet count 227 sodium 146 potassium 3.1 chloride 116 BUN 3.5 creatinine 0.6 patient remains on IV cefepime infectious disease following On 02/10/2025 patient was seen and examined on the medical floor he is alert and oriented x 3 in no distress, he denies any symptoms at this time there is no fever or chills no headache or dizziness no chest pain no shortness of breath no cough no nausea or vomiting no abdominal pain no diarrhea and no urinary symptoms, patient remains on IV cefepime infectious disease following. On 02/11/2025 patient was seen and examined on the medical floor he is alert and oriented in no apparent distress he denies any complaints there is no fever or chills no headache or dizziness no chest pain no shortness of breath no cough no nausea or vomiting no abdominal pain no diarrhea no urinary symptoms. Blood count is improving, he remains on IV cefepime, infectious disease following. Will continue to follow. On 02/12/2025 patient was seen and examined on the medical floor he is alert and oriented in no apparent distress, he denies any symptoms at this time, vital examination reveals a temperature of 98.3 pulse 93 respiration 18 blood pressure 95/55 sodium 141 potassium 3.7 chloride 115 CO2 21 BUN 5 creatinine 0.59. Patient remains on IV cefepime infectious disease following. On 02/13/2025 patient was transferred to the ICU last night due to decreased mentation and hypotension. Upon arrival patient was intubated and started on vasopressors. Patient is currently maxed out on vasopressors and blood pressure remains critically low. Critical care team at bedside attempting femoral line placement. Patient has a public guardian and has been informed of declining status. CODE STATUS has been changed to no code Plan - Discharge Summary Discharge Rx Participant: Yes New Discharge Prescriptions: No Action bisacodyL [Bisacodyl] 5 mg PO DAILY Oxybutynin Xl [Ditropan XL] 5 mg PO DAILY@0800 bisacodyL [Dulcolax] 10 mg RECTAL DAILY PRN PRN Reason: Constipation oxyCODONE HCL [OxyIR] 5 mg PO Q6H PRN PRN Reason: Moderate Pain (Scale 4 To 6) Naloxone HCl [Narcan] 4 mg NASAL DIRECTED PRN PRN Reason: opiod overdose Menthol-Zinc Oxide Oint [Calmoseptine Ointment] 1 applic TOPICAL QID Amino Acids/Protein Hydrolys [Pro-Stat Awc Liquid] 30 ml PO BID Magic Cup 1 dose PO BID Tamsulosin [Flomax] 0.4 mg PO DAILY Apixaban [Eliquis] 2.5 mg PO BID Ergocalciferol [Vitamin D2 (1250 Mcg = 03025 Iu)] 1,250 mcg PO MO@0800 cefTRIAXone [Rocephin] 1 gm IVPB HS@2300 polyethylene glycoL 3350 [Miralax] 17 gm PO HS Acetaminophen [Tylenol Arthritis] 650 mg PO Q6H PRN PRN Reason: Mild Pain (Scale 1 To 3) Ondansetron Odt [Zofran Odt] 4 mg PO Q6H PRN PRN Reason: Nausea And Vomiting ALPRAZolam [Xanax] 0.25 mg PO DAILY PRN PRN Reason: Anxiety Baclofen 10 mg PO TID@0800,1200,1800 Metoprolol Tartrate [Lopressor] 25 mg PO BID rOPINIRole HCL [Requip XL] 2 mg PO HS Potassium Chloride ER [K-Dur 20] 20 meq PO DAILY@0800 Omeprazole 20 mg PO DAILY Multivitamins, Thera [Multivitamin (formulary)] 1 tab PO HS Fluconazole [Diflucan] 400 mg PO DAILY@0800 Ferrous Sulfate [Feosol] 325 mg PO DAILY Escitalopram [Lexapro] 10 mg PO DAILY ALPRAZolam [Xanax] 0.25 mg PO TUFR@0800 Discharge Medication List bisacodyL [Bisacodyl] 5 mg PO DAILY 09/03/21 [History] polyethylene glycoL 3350 [Miralax] 17 gm PO HS 12/23/22 [History] Oxybutynin Xl [Ditropan XL] 5 mg PO DAILY@0800 01/14/23 [History] Acetaminophen [Tylenol Arthritis] 650 mg PO Q6H PRN 02/24/23 [History] bisacodyL [Dulcolax] 10 mg RECTAL DAILY PRN 02/24/23 [History] ALPRAZolam [Xanax] 0.25 mg PO DAILY PRN 02/04/25 [History] ALPRAZolam [Xanax] 0.25 mg PO TUFR@0800 02/04/25 [History] Amino Acids/Protein Hydrolys [Pro-Stat Awc Liquid] 30 ml PO BID 02/04/25 [History] Apixaban [Eliquis] 2.5 mg PO BID 02/04/25 [History] Baclofen 10 mg PO TID@0800,1200,1800 02/04/25 [History] Ergocalciferol [Vitamin D2 (1250 Mcg = 93337 Iu)] 1,250 mcg PO MO@0800 02/04/25 [History] Escitalopram [Lexapro] 10 mg PO DAILY 02/04/25 [History] Ferrous Sulfate [Feosol] 325 mg PO DAILY 02/04/25 [History] Fluconazole [Diflucan] 400 mg PO DAILY@0800 02/04/25 [History] Magic Cup 1 dose PO BID 02/04/25 [History] Menthol-Zinc Oxide Oint [Calmoseptine Ointment] 1 applic TOPICAL QID 02/04/25 [History] Metoprolol Tartrate [Lopressor] 25 mg PO BID 02/04/25 [History] Multivitamins, Thera [Multivitamin (formulary)] 1 tab PO HS 02/04/25 [History] Naloxone HCl [Narcan] 4 mg NASAL DIRECTED PRN 02/04/25 [History] Omeprazole 20 mg PO DAILY 02/04/25 [History] Ondansetron Odt [Zofran Odt] 4 mg PO Q6H PRN 02/04/25 [History] Potassium Chloride ER [K-Dur 20] 20 meq PO DAILY@0800 02/04/25 [History] Tamsulosin [Flomax] 0.4 mg PO DAILY 02/04/25 [History] cefTRIAXone [Rocephin] 1 gm IVPB HS@2300 02/04/25 [History] oxyCODONE HCL [OxyIR] 5 mg PO Q6H PRN 02/04/25 [History] rOPINIRole HCL [Requip XL] 2 mg PO HS 02/04/25 [History] Follow up Appointment(s)/Referral(s): Radha Peacock MD [Primary Care Provider] - 1-2 days Discharge Disposition: - Preliminary Cause of Preliminary Cause of : septic shock
== END 2025-02-13 14:35 | disposition expired | DRG 113 ==
LOC: EC 15:04 → 5NMEDONC 17:32 → 4SSUR 18:23 → 2SICU 02-12 22:31
PROVIDERS: ADMIT Internal Medicine; ATTEND Internal Medicine
PROC: 02HV33Z Insertion of Infusion Device into Superior Vena Cava, Percutaneous Approach (ICD-10-PCS; 2025-02-04)
PROC: 0BH17EZ Insertion of Endotracheal Airway into Trachea, Via Natural or Artificial Opening (ICD-10-PCS; principal; 2025-02-13)
PROC: 5A1935Z Respiratory Ventilation, Less than 24 Consecutive Hours (ICD-10-PCS; 2025-02-13)
PROC: 4A133B1 Monitoring of Arterial Pressure, Peripheral, Percutaneous Approach (ICD-10-PCS; 2025-02-13)
PROC: 4A133J1 Monitoring of Arterial Pulse, Peripheral, Percutaneous Approach (ICD-10-PCS; 2025-02-13)
PROC: 03HY32Z Insertion of Monitoring Device into Upper Artery, Percutaneous Approach (ICD-10-PCS; 2025-02-13)
PROC: 3E033XZ Introduction of Vasopressor into Peripheral Vein, Percutaneous Approach (ICD-10-PCS; 2025-02-13)
PROC: 30233N1 Transfusion of Nonautologous Red Blood Cells into Peripheral Vein, Percutaneous Approach (ICD-10-PCS; 2025-02-13)
PROC: 0D9670Z Drainage of Stomach with Drainage Device, Via Natural or Artificial Opening (ICD-10-PCS; 2025-02-13)
PROC: 0W9930Z Drainage of Right Pleural Cavity with Drainage Device, Percutaneous Approach (ICD-10-PCS; 2025-02-13)
DX: J10.1 Influenza due to other identified influenza virus with other respiratory manifestations (principal); E87.6 Hypokalemia; L89.612 Pressure ulcer of right heel, stage 2; J95.811 Postprocedural pneumothorax; N39.0 Urinary tract infection, site not specified; E86.0 Dehydration; L89.152 Pressure ulcer of sacral region, stage 2; Z66 Do not resuscitate; Z51.5 Encounter for palliative care; Z11.52 Encounter for screening for COVID-19; K80.50 Calculus of bile duct without cholangitis or cholecystitis without obstruction; E83.42 Hypomagnesemia; G92.8 Other toxic encephalopathy; G25.81 Restless legs syndrome; F32.A Depression, unspecified; G80.9 Cerebral palsy, unspecified; E87.20 Acidosis, unspecified; I10 Essential (primary) hypertension; D50.9 Iron deficiency anemia, unspecified; A41.52 Sepsis due to Pseudomonas; J96.01 Acute respiratory failure with hypoxia; R65.21 Severe sepsis with septic shock; N40.0 Benign prostatic hyperplasia without lower urinary tract symptoms; F41.9 Anxiety disorder, unspecified; L40.9 Psoriasis, unspecified; M19.90 Unspecified osteoarthritis, unspecified site; Z74.01 Bed confinement status; Z79.01 Long term (current) use of anticoagulants; Z79.899 Other long term (current) drug therapy; Z82.49 Family history of ischemic heart disease and other diseases of the circulatory system; Z87.440 Personal history of urinary (tract) infections; Z90.49 Acquired absence of other specified parts of digestive tract; Z87.19 Personal history of other diseases of the digestive system; M62.49 Contracture of muscle, multiple sites; E55.0 Rickets, active
CPT/HCPCS: 36415; 36600; 71045; 80048; 80053; 81001; 82803; 82805; 83605; 83735; 84132; 85025; 85027; 85610; 85730; 86140; 86850; 86900; 86901; 86920; 87040; 87077; 87086; 87186; 87636; 93005; 94002; 94760; 96361; 96365; 96366; 96368; 99285